=== PATIENT | female | born 1965 | race American Indian/Alaskan Native ===

== ENCOUNTER 2021-08-20 22:25 | Emergency (ER) | payer SELFPAY ==
[2021-08-20] MEDS ORDERED: ALBUTEROL 2.5 MG/3 ML NEBU IH ONE (23:29)
[2021-08-20] MEDS ORDERED: IPRATROPIUM 0.02% NEBU 2.5 ML IH ONE (23:29)
[2021-08-20] MEDS ORDERED: MAGNESIUM SULFATE 2 GM/50 ML BAG IV ONE (23:29)
[2021-08-20] MEDS ORDERED: methylPREDNISolone Sod Succinate 125 MG/2 ML INJ IV ONE (23:30)
--- NOTE | 2021-08-20 23:32 | Emergency Department Report ---
ED Shortness of Breath HPI - General Chief Complaint: Dyspnea/Respdistress Stated Complaint: DORIAN/ASTHMA Time Seen by Provider: 08/20/21 23:06 Source: patient, EMS Mode of arrival: Stretcher Limitations: No Limitations - History of Present Illness Initial Comments: 56-year-old female, history of COPD on 2 L O2, presents to ED with shortness of breath. Patient states she is having dyspnea on exertion and wheezing. Patient states everything began 3 days ago after smoking crack. EMS was called. Patient was given albuterol 5 mg nebulizer treatment and transported to the ED. Patient reports cough, denies fever. Denies receiving a COVID-19 vaccine. Patient currently 91% on her usual 2 L O2 nasal cannula. MD Complaint: shortness of breath -: days(s) (3) Severity: moderate Consistency: intermittent Improves With: rest Worsens With: exertion Known History Of: COPD, asthma Associated Symptoms: cough Treatments Prior to Arrival: bronchodilator - Related Data Home Oxygen Therapy: Yes Home Oxygen Amount: 2 Liters Previous Rx's Medication Instructions Recorded Last Taken Type Albuterol Sulfate [Proventil Hfa] 2 puff IH Q4HR PRN #1 hfa.aer.ad 08/21/21 Unknown Rx Furosemide [Lasix] 20 mg PO QDAY #5 tablet 08/21/21 Unknown Rx predniSONE [Deltasone] 50 mg PO QDAY #5 tab 08/21/21 Unknown Rx Allergies Allergy/AdvReac Type Severity Reaction Status Date / Time No Known Allergies Allergy Verified 08/20/21 22:43 ED Review of Systems ROS: Stated complaint: DORIAN/ASTHMA Other details as noted in HPI Comment: All other systems reviewed and negative Constitutional: denies: chills, fever Respiratory: cough, shortness of breath, wheezing ED Past Medical Hx - Past Medical History Previous Medical History?: Yes Hx Asthma: Yes Hx COPD: Yes Additional medical history: headaches - Surgical History Past Surgical History?: No - Social History Smoking Status: Never Smoker Substance Use Type: None - Medications Home Medications: Home Medications Medication Instructions Recorded Confirmed Last Taken Type Albuterol Sulfate [Proventil Hfa] 2 puff IH Q4HR PRN #1 hfa.aer.ad 08/21/21 Unknown Rx Furosemide [Lasix] 20 mg PO QDAY #5 tablet 08/21/21 Unknown Rx predniSONE [Deltasone] 50 mg PO QDAY #5 tab 08/21/21 Unknown Rx ED Physical Exam - General Limitations: No Limitations General appearance: alert - Head Head exam: Present: atraumatic, normocephalic - Eye Eye exam: Present: normal appearance, EOMI - ENT ENT exam: Present: mucous membranes moist - Neck Neck exam: Present: normal inspection - Respiratory Respiratory exam: Present: wheezes - Cardiovascular Cardiovascular Exam: Present: regular rate, normal rhythm - GI/Abdominal GI/Abdominal exam: Present: soft. Absent: distended, tenderness - Extremities Exam Extremities exam: Present: normal inspection - Neurological Exam Neurological exam: Present: alert, oriented X3 - Psychiatric Psychiatric exam: Present: normal affect, normal mood - Skin Skin exam: Present: warm, dry, intact, normal color ED Course Vital Signs 08/20/21 08/20/21 08/20/21 22:39 22:43 23:15 Temperature 98.2 F Pulse Rate 86 85 Pulse Rate [ Bilateral] Respiratory 18 20 Rate Respiratory Rate [Bilateral ] Blood Pressure Blood Pressure 115/76 120/73 [Left] O2 Sat by Pulse 100 100 100 Oximetry 08/20/21 08/20/21 08/21/21 23:26 23:30 00:00 Temperature Pulse Rate 86 Pulse Rate [ Bilateral] Respiratory 24 Rate Respiratory Rate [Bilateral ] Blood Pressure 119/64 120/73 Blood Pressure [Left] O2 Sat by Pulse 100 100 92 Oximetry 08/21/21 08/21/21 08/21/21 00:18 00:56 01:00 Temperature Pulse Rate 91 H 99 H Pulse Rate [ 84 Bilateral] Respiratory 17 18 Rate Respiratory 20 Rate [Bilateral ] Blood Pressure 120/73 120/73 Blood Pressure [Left] O2 Sat by Pulse 100 93 Oximetry 08/21/21 08/21/21 08/21/21 01:30 02:00 02:30 Temperature Pulse Rate 93 H 93 H Pulse Rate [ Bilateral] Respiratory 19 15 Rate Respiratory Rate [Bilateral ] Blood Pressure 135/82 116/66 116/66 Blood Pressure [Left] O2 Sat by Pulse 100 91 89 Oximetry 08/21/21 08/21/21 08/21/21 03:00 03:30 04:25 Temperature Pulse Rate Pulse Rate [ Bilateral] Respiratory Rate Respiratory Rate [Bilateral ] Blood Pressure 121/79 121/79 138/103 Blood Pressure [Left] O2 Sat by Pulse 97 97 Oximetry 08/21/21 08/21/21 08/21/21 04:36 05:00 05:30 Temperature Pulse Rate Pulse Rate [ Bilateral] Respiratory Rate Respiratory Rate [Bilateral ] Blood Pressure 138/103 110/64 Blood Pressure [Left] O2 Sat by Pulse 94 98 Oximetry 08/21/21 08/21/21 08/21/21 06:00 08:00 10:08 Temperature Pulse Rate 88 90 Pulse Rate [ Bilateral] Respiratory 17 17 Rate Respiratory Rate [Bilateral ] Blood Pressure Blood Pressure [Left] O2 Sat by Pulse 99 97 97 Oximetry 08/21/21 08/21/21 12:25 15:00 Temperature Pulse Rate 95 H 85 Pulse Rate [ Bilateral] Respiratory 18 18 Rate Respiratory Rate [Bilateral ] Blood Pressure Blood Pressure 125/74 [Left] O2 Sat by Pulse 96 99 Oximetry ED Medical Decision Making - Radiology Data Radiology results: report reviewed, image reviewed - Medical Decision Making 56-year-old female with COPD exacerbation likely secondary to smoking crack. Patient given albuterol/Atrovent nebulizer treatment along with IV Solu-Medrol and mag sulfate here in the ED. Patient is doing much better. She is eating at the bedside. Upon discharge she informed that she has run out of oxygen at home. When off of her 2 L of O2 patient does desaturate. Will obtain case management consult for home O2. Critical care attestation.: If time is entered above; I have spent that time in minutes in the direct care of this critically ill patient, excluding procedure time. ED Disposition Clinical Impression: Cocaine abuse, COPD exacerbation Disposition: 01 HOME / SELF CARE / HOMELESS Is pt being admited?: No Condition: Stable Instructions: Chronic Obstructive Pulmonary Disease Exacerbation, [id number], Stimulant Use Disorder-Cocaine, Chronic Obstructive Pulmonary Disease (ED) Prescriptions: predniSONE [Deltasone] 50 mg PO QDAY #5 tab Furosemide [Lasix] 20 mg PO QDAY #5 tablet Albuterol Sulfate [Proventil Hfa] 2 puff IH Q4HR PRN #1 hfa.aer.ad PRN Reason: Wheezing Referrals: PRIMARY CARE, [Primary Care Provider] - 3-5 Days [facility] [Provider Group] - 3-5 Days Time of Disposition: 03:15
--- NOTE | 2021-08-20 23:56 | XRay Report ---
CHEST 1 VIEW 08/20/2021 10:48 PM INDICATION / CLINICAL INFORMATION: sob. COMPARISON: None available. FINDINGS: SUPPORT DEVICES: None. HEART / MEDIASTINUM: No significant abnormality. LUNGS / PLEURA: There is pulmonary vascular indistinctness. No focal consolidation. No pneumothorax. ADDITIONAL FINDINGS: No significant additional findings. IMPRESSION: 1. Mild pulmonary edema. Signer Name: Syd Chavez DO Signed: 08/20/2021 11:51 PM Workstation Name: [id number]
[2021-08-21] MEDS ORDERED: FUROSEMIDE 40 MG/4 ML INJ IV ONE (01:14)
[2021-08-21] MEDS ORDERED: LORazepam 2 MG/ML VIAL IV ONE (04:31)
[2021-08-21] MEDS ORDERED: LORazepam 2 MG/ML VIAL ONE (04:32)
[2021-08-21 15:44] VITALS: BP 125/74
== END 2021-08-21 15:45 | disposition home or self-care (01) ==
LOC: ED 22:25
DX: J44.9 Chronic obstructive pulmonary disease, unspecified (principal); F14.10 Cocaine abuse, uncomplicated; Z98.890 Other specified postprocedural states; Z79.899 Other long term (current) drug therapy
CPT/HCPCS: 71045; 94640; 96365; 96375; 99284; J1940; J2060; J2930; J3475; 94644

== ENCOUNTER 2022-03-28 16:27 | Inpatient (IN) | payer SELFPAY ==
[2022-03-28 18:21] LABS: ABG Base Excess -0.9 mmol/L (-2.0-3.0); ABG HCO3 30.1 mmol/L (20.0-26.0); ABG Methemoglobin 0.5 % (0.0-1.5); ABG Oxygen Saturation 94.9 % (95.0-99.0); ABG PCO2 86.8 mm Hg; ABG PO2 88.8 mm Hg (80.0-90.0)
[2022-03-28 18:25] LABS: ABG PH 7.158 pH Units (7.350-7.450)
[2022-03-28] MEDS ORDERED: IPRATROPIUM/ALBUTEROL SULFATE 3 ML AMPUL.NEB IH STA (19:04)
[2022-03-28] MEDS ORDERED: BUDESONIDE 0.25 MG/2 ML NEBU IH ONE (19:05)
[2022-03-28 19:40] LABS: Mean Corpuscular HGB Conc 30 % (30-34); Mean Corpuscular Volume 90 fl (79-97); Platelet Count 238 K/mm3 (140-440); Red Blood Count 4.88 M/mm3 (3.65-5.03)
[2022-03-28 19:42] LABS: Hematocrit 44.2 % (30.3-42.9); Hemoglobin 13.2 gm/dl (10.1-14.3); Red Cell Distribution Width 21.3 % (13.2-15.2)
--- NOTE | 2022-03-28 19:50 | XRay Report ---
CHEST 1 VIEW 03/28/2022 6:36 PM INDICATION / CLINICAL INFORMATION: sob, copd. COMPARISON: 08/20/2021 FINDINGS: SUPPORT DEVICES: None. HEART / MEDIASTINUM: Stable cardiomegaly. Mild prominence of the right hilum remains. LUNGS / PLEURA: No left-sided infiltrate. Slightly more localized opacity right base. No pneumothorax . ADDITIONAL FINDINGS: No significant additional findings. IMPRESSION: 1. Atelectasis versus developing infiltrate right base. 2. Left lung clear. Signer Name: Dar Kimball MD Signed: 03/28/2022 7:45 PM Workstation Name: [id number]
[2022-03-28 19:51] LABS: Alanine Aminotransferase 29 units/L (7-56); Albumin 4.1 g/dL (3.9-5); Blood Urea Nitrogen 9 mg/dL (7-17); Calcium 9.2 mg/dL (8.4-10.2); Hemolysis Index 30
[2022-03-28 19:52] LABS: BUN/Creatinine Ratio 15
[2022-03-28] MEDS ORDERED: BUDESONIDE 0.5 MG/2 ML NEBU IH ONE (20:10)
[2022-03-28 21:22] LABS: Anisocytosis 1+; Basophils % (Manual) 0 % (0.0-1.8); Eosinophils % (Manual) 0 % (0.0-4.3); Total Cells Counted 100
[2022-03-28 21:23] LABS: Platelet Estimate Consistent w Auto; Tear Drop Cells Rare
[2022-03-28] MEDS ORDERED: cefTRIAXone/NS 1 GM/50 ML 1 GM/50 ML BAG IV ONE (21:41)
--- NOTE | 2022-03-28 22:24 | Emergency Department Report ---
ED Shortness of Breath HPI - General Chief Complaint: Dyspnea/Respdistress Stated Complaint: DORIAN Source: patient, EMS Mode of arrival: Stretcher Limitations: Other - History of Present Illness Initial Comments: 56-year-old female with a history of asthma, COPD, current chronic tobacco abuse at 1 pack/day of cigarette smoking, cocaine abuse, alcohol abuse (patient states last time she smoked crack cocaine was today and last time she drank alcohol was 2 shots of alcohol earlier today" brought in by EMS for hypoxemia and shortness of breath. See patient's electronic health record concerning the nurses documented discussion with EMS concerning the medications administered to the patient prior to arrival. Patient denies any complaints at this time but does states she has been "just feeling badly with this cough and asthma attack over the past few days." Pain 0 out of 10. MD Complaint: shortness of breath, cough, "asthma attack" -: Gradual, days(s) (4) Radiation: other (no radiation ) Severity: moderate Pain Scale: 0 Quality: other (pt denies pain ) Consistency: other (pt denies pain) Improves With: oxygen Worsens With: nothing Known History Of: COPD, asthma Context: recent URI Associated Symptoms: denies other symptoms Treatments Prior to Arrival: oxygen, bronchodilator - Related Data Home Oxygen Therapy: No Previous Rx's Medication Instructions Recorded Last Taken Type Albuterol Sulfate [Proventil Hfa] 2 puff IH Q4HR PRN #1 hfa.aer.ad 08/21/21 Unknown Rx Furosemide [Lasix] 20 mg PO QDAY #5 tablet 08/21/21 Unknown Rx predniSONE [Deltasone] 50 mg PO QDAY #5 tab 08/21/21 Unknown Rx Allergies Allergy/AdvReac Type Severity Reaction Status Date / Time No Known Allergies Allergy Verified 08/20/21 22:43 ED Review of Systems ROS: Stated complaint: DORIAN Other details as noted in HPI Comment: All other systems reviewed and negative Constitutional: no symptoms reported Eyes: as per HPI ENT: as per HPI Respiratory: cough, shortness of breath, wheezing Cardiovascular: as per HPI. denies: chest pain, palpitations, dyspnea on ex ertion, orthopnea, edema, syncope, paroxysmal nocturnal dyspnea Endocrine: no symptoms reported Gastrointestinal: as per HPI. denies: abdominal pain, nausea, vomiting, diarrhea, constipation, hematemesis, melena, hematochezia Genitourinary: denies: as per HPI, urgency, dysuria, frequency, hematuria, discharge, abnormal menses Musculoskeletal: as per HPI. denies: back pain, joint swelling, arthralgia, myalgia Skin: denies: as per HPI, rash, lesions, change in color, change in hair/nails, pruritus Neurological: denies: as per HPI, headache, weakness, numbness, paresthesias, confusion Psychiatric: anxiety. denies: as per HPI, depression, auditory hallucinations, visual hallucinations, homicidal thoughts, suicidal thoughts Hematological/Lymphatic: denies: as per HPI ED Past Medical Hx - Past Medical History Previous Medical History?: Yes Hx Hypertension: No Hx CVA: No Hx Heart Attack/AMI: No Hx Congestive Heart Failure: No Hx Diabetes: No Hx Deep Vein Thrombosis: No Hx Pulmonary Embolism: No Hx GERD: No Hx Renal Disease: No Hx of Cancer: No Hx Sickle Cell Disease: No Hx Arthritis: No Hx Headaches / Migraines: No Hx Seizures: No Hx Kidney Stones: No Hx Psychiatric Treatment: No Hx Asthma: Yes Hx COPD: Yes Hx Tuberculosis: No Hx Dementia: No Hx HIV: No Additional medical history: headaches - Social History Smoking Status: Current Every Day Smoker Substance Use Type: None - Medications Home Medications: Home Medications Medication Instructions Recorded Confirmed Last Taken Type Albuterol Sulfate [Proventil Hfa] 2 puff IH Q4HR PRN #1 hfa.aer.ad 08/21/21 Unknown Rx Furosemide [Lasix] 20 mg PO QDAY #5 tablet 08/21/21 Unknown Rx predniSONE [Deltasone] 50 mg PO QDAY #5 tab 08/21/21 Unknown Rx ED Physical Exam - General Limitations: Other General appearance: lethargic, other (audlt female, disheveled, dry oral mucous membranes, asleep but easily arousable) - Head Head exam: Present: atraumatic, normocephalic, normal inspection - Eye Eye exam: Present: normal appearance, PERRL, EOMI. Absent: scleral icterus, conjunctival injection, nystagmus, periorbital swelling, periorbital tenderness - ENT ENT exam: Present: normal exam, mucous membranes dry, TM's normal bilaterally. Absent: mucous membranes moist, normal external ear exam, other - Neck Neck exam: Present: normal inspection. Absent: tenderness, meningismus, full ROM, lymphadenopathy, thyromegaly - Respiratory Respiratory exam: Present: respiratory distress, wheezes, rales, rhonchi, p rolonged expiratory. Absent: stridor, chest wall tenderness, accessory muscle use, decreased breath sounds - Cardiovascular Cardiovascular Exam: Present: regular rate, normal rhythm, normal heart sounds. Absent: bradycardia, tachycardia, irregular rhythm, systolic murmur, diastolic murmur, rubs, gallop, clicks, JVD, S3, S4 - GI/Abdominal GI/Abdominal exam: Present: soft, normal bowel sounds. Absent: distended, tende rness, guarding, rebound, rigid, diminished bowel sounds, hyperactive bowel sounds, hypoactive bowel sounds, organomegaly, mass, bruit, pulsatile mass, hernia - Rectal Rectal exam: Present: deferred - Extremities Exam Extremities exam: Present: normal inspection, full ROM, normal capillary refill. Absent: tenderness, pedal edema, joint swelling, calf tenderness - Back Exam Back exam: Present: normal inspection, full ROM. Absent: tenderness, CVA tenderness (R), CVA tenderness (L), muscle spasm, paraspinal tenderness, vertebral tenderness - Neurological Exam Neurological exam: Present: alert, oriented X3, other (unable to test gait seco ndary to mental status ) - Psychiatric Psychiatric exam: Present: other (intermittently writhing on stretcher, stating "i'm coming down from the crack! down from the crack!") - Skin Skin exam: Present: warm, dry, normal color. Absent: rash, cyanosis, diaphoretic, erythema, urticaria, vesicles, petechiae, pallor, abrasion ED Course Vital Signs 03/28/22 03/28/22 03/28/22 16:40 17:00 17:38 Temperature Pulse Rate 100 H Pulse Rate [ Anterior Bilateral Throughout] Respiratory 36 H 15 Rate Respiratory Rate [Anterior Bilateral Throughout] Blood Pressure Blood Pressure [Left] O2 Sat by Pulse 99 98 Oximetry 03/28/22 03/28/22 03/28/22 17:46 18:00 18:16 Temperature Pulse Rate 101 H 98 H 97 H Pulse Rate [ Anterior Bilateral Throughout] Respiratory 13 17 16 Rate Respiratory Rate [Anterior Bilateral Throughout] Blood Pressure 148/83 Blood Pressure [Left] O2 Sat by Pulse 94 99 98 Oximetry 03/28/22 03/28/2222 18:30 18:46 19:50 Temperature 98.3 F Pulse Rate 94 H 92 H 99 H Pulse Rate [ Anterior Bilateral Throughout] Respiratory 18 16 15 Rate Respiratory Rate [Anterior Bilateral Throughout] Blood Pressure 147/87 142/86 Blood Pressure 155/92 [Left] O2 Sat by Pulse 99 97 92 Oximetry 03/28/22 19:58 Temperature Pulse Rate Pulse Rate [ 87 Anterior Bilateral Throughout] Respiratory Rate Respiratory 14 Rate [Anterior Bilateral Throughout] Blood Pressure Blood Pressure [Left] O2 Sat by Pulse Oximetry - Reevaluation(s) Reevaluation #1: 03/28/22 19:29: pt asleep, arousable with sternal rub; mentation normal when pt awoken; pt is requesting food; plan will be to admit ED Medical Decision Making - Lab Data Result diagrams: 03/28/22 19:18 03/28/22 19:18 - EKG Data -: EKG Interpreted by Co EKG shows normal: sinus rhythm Rate: normal - EKG Data When compared to previous EKG there are: no significant change Interpretation: no acute changes, normal EKG - Radiology Data Radiology results: report reviewed reviewed - Medical Decision Making 56-year-old female with multiple medical comorbidities brought in by EMS for hypoxia and respiratory distress. Patient was immediately placed on BiPAP upon arrival due to severe respiratory distress. Her vitals remained stable thereafter. Given that she was already provided multiple medications by EMS prior to arrival, she was given here albuterol DuoNeb. Serum labs reviewed as well as diagnostic imaging. Patient given ceftriaxone and azithromycin based on her reports of cough, documented elevated wbc, and ?developing RLL infiltrate.. Urine drug screen remains pending. Patient accepted for admission by Dr. Ingram for further management. Critical care attestation.: If time is entered above; I have spent that time in minutes in the direct care of this critically ill patient, excluding procedure time. ED Disposition Clinical Impression: Hypoxia Community acquired pneumonia Qualifiers: Laterality: right Lung location: lower lobe of lung Qualified Code(s): J18.9 - Pneumonia, unspecified organism Disposition: 09 ADMITTED INPATIENT Is pt being admited?: Yes Does the pt Need Aspirin: No Condition: Stable Instructions: Bacterial Pneumonia (ED) Referrals: ARRON TUBBS MD [Primary Care Provider] - 3-5 Days
[2022-03-28] MEDS ORDERED: MORPHINE 2 MG/1 ML INJ IV PRN (23:17)
[2022-03-28] MEDS ORDERED: ONDANSETRON 4 MG/2 ML INJ IV PRN (23:17)
[2022-03-28] MEDS ORDERED: LORazepam 2 MG/ML VIAL IV PRN ×2 (23:17)
[2022-03-28] MEDS ORDERED: MORPHINE 4 MG/1 ML INJ IV PRN (23:17)
[2022-03-28] MEDS ORDERED: ACETAMINOPHEN 325 MG TAB PO PRN (23:17)
[2022-03-28] MEDS ORDERED: MAGNESIUM HYDROXIDE (MOM) ORAL LIQD UDC PO PRN (23:17)
[2022-03-28] MEDS ORDERED: SODIUM CHLORIDE 0.9% 1000 ML 1,000 ML IV SCH (23:30)
--- NOTE | 2022-03-28 23:31 | History and Physical Report ---
History of Present Illness Date of examination: 03/28/22 Date of admission: 03/28/2022 Chief complaint: Shortness of Breath History of present illness: 56-year-old female with known history of COPD chronic tobacco abuse cocaine abuse ,alcohol use brought into the emergency room by EMS today for evaluation of shortness of breath and hypoxia. Patient states that she smoked crack cocaine and also drank 2 shots of alcohol earlier in the day. She denies any major complaints upon arrival in the emergency room. However upon arrival she was found to be hypoxic, wheezing and appeared lethargic. She was subsequently placed on the BiPAP. Work-up in the emergency room today, chest x-ray of reveals atelectasis versus developing infiltrate in the right lung base. Lab reveals leukocytosis of 12.4 ABG shows a pH of 7.158, PCO2 of 86.8. Patient has been commenced on empiric IV antibiotics, IV fluid and also placed on the CIWA protocol. Past History Past Medical History: COPD, hypertension, other (Headache) Social history: smoking (Current daily smoker,Cocaine and alcohol abuse) Family history: no significant family history Medications and Allergies Allergies Allergy/AdvReac Type Severity Reaction Status Date / Time No Known Allergies Allergy Verified 08/20/21 22:43 Home Medications Medication Instructions Recorded Confirmed Last Taken Type Albuterol Sulfate [Proventil Hfa] 2 puff IH Q4HR PRN #1 hfa.aer.ad 08/21/21 Unknown Rx Furosemide [Lasix] 20 mg PO QDAY #5 tablet 08/21/21 Unknown Rx predniSONE [Deltasone] 50 mg PO QDAY #5 tab 08/21/21 Unknown Rx Active Meds: Active Medications Acetaminophen (Acetaminophen 325 Mg Tab) 650 mg PO Q6H PRN PRN Reason: Pain MILD(1-3)/Fever >100.5/BAÑUELOS Albuterol/Ipratropium (Ipratropium/Albuterol Sulfate 3 Ml Ampul.Neb) 1 ampul IH Q6HRT JAMES Sodium Chloride (Nacl 0.9% 1000 Ml) 1,000 mls @ 125 mls/hr IV DIRECT JAMES Ceftriaxone Sodium (Rocephin/Ns 2 Gm/100 Ml) 2 gm in 100 mls @ 200 mls/hr IV Q24H JAMES; Protocol Azithromycin (Zithromax/Ns) 500 mg in 250 mls @ 250 mls/hr IV Q24H JAMES; Protocol Lorazepam (Lorazepam 2 Mg/Ml Vial) 2 mg IV Q1H PRN PRN Reason: CIWA-Ar 8-15 Lorazepam (Lorazepam 2 Mg/Ml Vial) 4 mg IV Q1H PRN PRN Reason: CIWA-Ar 16-25 Lorazepam (Lorazepam 2 Mg/Ml Vial) 4 mg IV Q15MIN PRN PRN Reason: CIWA-Ar >25 Magnesium Hydroxide (Magnesium Hydroxide (Mom) Oral Liqd Udc) 30 ml PO Q4H PRN PRN Reason: Constipation Methylprednisolone Sodium Succinate (Methylprednisolone Sod Succinate 40 Mg/1 Ml Inj) 40 mg IV Q8HR JAMES Morphine Sulfate (Morphine 2 Mg/1 Ml Inj) 2 mg IV Q4H PRN PRN Reason: Pain, Moderate (4-6) Morphine Sulfate (Morphine 4 Mg/1 Ml Inj) 4 mg IV Q4H PRN PRN Reason: Pain , Severe (7-10) Ondansetron HCl (Ondansetron 4 Mg/2 Ml Inj) 4 mg IV Q8H PRN PRN Reason: Nausea And Vomiting Sodium Chloride (Sodium Chloride 0.9% 10 Ml Flush Syringe) 10 ml IV BID JAMES Sodium Chloride (Sodium Chloride 0.9% 10 Ml Flush Syringe) 10 ml IV PRN PRN PRN Reason: LINE FLUSH Review of Systems Constitutional: no fever, no chills Ears, nose, mouth and throat: no nasal congestion, no sore throat Cardiovascular: no chest pain, no palpitations Respiratory: shortness of breath, no cough Gastrointestinal: no abdominal pain, no nausea, no vomiting, no diarrhea Genitourinary Female: no pelvic pain, no flank pain, no dysuria Musculoskeletal: no neck pain, no low back pain Integumentary: no rash, no pruritis Neurological: no headaches, no confusion Psychiatric: no anxiety, no depression Endocrine: no polyphagia, no polydipsia, no polyuria Exam - Constitutional Vitals: Temp Pulse Resp BP Pulse Ox 98.3 F 99 H 15 122/71 95 03/28/22 19:50 03/28/22 22:34 03/28/22 22:34 03/28/22 22:34 03/28/22 22:34 General appearance: Present: no acute distress, well-nourished - EENT Eyes: Present: PERRL, EOM intact. Absent: scleral icterus ENT: hearing intact, clear oral mucosa, dentition normal - Neck Neck: Present: supple, normal ROM - Respiratory Respiratory effort: normal Respiratory: bilateral: wheezing - Cardiovascular Rhythm: regular Heart Sounds: Present: S1 & S2. Absent: gallop, systolic murmur, diastolic murmur, rub, click - Extremities Extremities: no ischemia, pulses intact, pulses symmetrical, No edema, normal temperature, normal color, Full ROM Peripheral Pulses: within normal limits - Abdominal General gastrointestinal: Present: soft, non-tender, non-distended, normal bowel sounds. Absent: mass - Integumentary Integumentary: Present: clear, warm, dry, normal turgor. Absent: rash - Musculoskeletal Musculoskeletal: strength equal bilaterally - Psychiatric Psychiatric: cooperative - Neurologic Neurologic: CNII-XII intact, no focal deficits, moves all extremities, other (Lethargic) Results - Labs CBC & Chem 7: 03/28/22 19:18 03/29/22 04:53 Labs: Abnormal lab results 03/28/22 03/28/22 03/28/22 Range/Units 17:55 19:18 19:18 WBC 12.4 H (4.5-11.0) K/mm3 Hct 44.2 H (30.3-42.9) % MCH 27 L (28-32) pg RDW 21.3 H (13.2-15.2) % Seg Neuts % (Manual) 93.0 H (40.0-70.0) % Lymphocytes % (Manual) 6.0 L (13.4-35.0) % Seg Neutrophils # Man 11.5 H (1.8-7.7) K/mm3 Lymphocytes # (Manual) 0.7 L (1.2-5.4) K/mm3 ABG pH 7.158 L* (7.350-7.450) pH Units ABG HCO3 30.1 H (20.0-26.0) mmol/L ABG O2 Saturation 94.9 L (95.0-99.0) % Oxyhemoglobin 90.6 L (95.0-99.0) % Glucose 148 H (65-100) mg/dL Salicylates (2.8-20.0) mg/dL Acetaminophen (10.0-30.0) ug/mL 03/28/22 03/28/22 Range/Units 19:18 19:18 WBC (4.5-11.0) K/mm3 Hct (30.3-42.9) % MCH (28-32) pg RDW (13.2-15.2) % Seg Neuts % (Manual) (40.0-70.0) % Lymphocytes % (Manual) (13.4-35.0) % Seg Neutrophils # Man (1.8-7.7) K/mm3 Lymphocytes # (Manual) (1.2-5.4) K/mm3 ABG pH (7.350-7.450) pH Units ABG HCO3 (20.0-26.0) mmol/L ABG O2 Saturation (95.0-99.0) % Oxyhemoglobin (95.0-99.0) % Glucose (65-100) mg/dL Salicylates < 0.3 L (2.8-20.0) mg/dL Acetaminophen 5.0 L (10.0-30.0) ug/mL Assessment and Plan - Patient Problems (1) Community acquired pneumonia Current Visit: Yes Status: Acute Qualifiers: Laterality: right Lung location: lower lobe of lung Qualified Code(s): J18.9 - Pneumonia, unspecified organism Plan to address problem: Patient placed on empiric IV antibiotics. Will await culture results. (2) COPD (chronic obstructive pulmonary disease) Current Visit: Yes Status: Acute Plan to address problem: Patient placed on nebulizing treatments. We will keep O2 saturation greater or equal to 94%. Consult placed to pulmonology for evaluation and further recommendations. (3) Hypoxia Current Visit: Yes Status: Acute Plan to address problem: Possibly secondary emergency room COPD suspicion versus underlying pneumonia. Will keep O2 saturation greater equal to 94%. (4) DVT prophylaxis Current Visit: Yes Status: Acute Plan to address problem: Patient placed on subcutaneous heparin. (5) Full code status Current Visit: Yes Status: Acute Plan to address problem: Patient is full code.
[2022-03-28] MEDS: AZITHROMYCIN/NS 500 MG/250 ML 500 MG/250 ML BAG IV SCH (23:48)
[2022-03-29] MEDS: LORazepam 2 MG/ML VIAL IV PRN ×3 (00:29→21:20)
[2022-03-29] MEDS: IPRATROPIUM/ALBUTEROL SULFATE 3 ML AMPUL.NEB IH SCH ×4 (03:00→20:30)
[2022-03-29 05:29] LABS: Blood Urea Nitrogen 7 mg/dL (7-17); Calcium 9.3 mg/dL (8.4-10.2); Hemolysis Index 5
[2022-03-29 05:35] LABS: BUN/Creatinine Ratio 14
[2022-03-29] MEDS: methylPREDNISolone Sod Succinate 40 MG/1 ML INJ IV SCH ×3 (06:15→22:32)
[2022-03-29 08:55] LABS: ABG Base Excess 2.1 mmol/L (-2.0-3.0); ABG Methemoglobin 0.4 % (0.0-1.5); ABG PCO2 63.6 mm Hg; ABG PH 7.292 pH Units (7.350-7.450); ABG PO2 61.4 mm Hg (80.0-90.0)
[2022-03-29] MEDS ORDERED: ZIPRASIDONE MESYLATE 20 MG VIAL IM SCH (09:30)
[2022-03-29] MEDS ORDERED: ZIPRASIDONE MESYLATE 20 MG VIAL IM NR (09:30)
[2022-03-29] MEDS: ENOXAPARIN 40 MG/0.4 ML INJ SUB-Q SCH (09:57)
[2022-03-29] MEDS: cefTRIAXone/NS 2 GM/100 ML 2 GM/100 ML BAG IV SCH (09:58)
[2022-03-29] MEDS: FAMOTIDINE 20 MG/2 ML INJ IV SCH (10:00)
[2022-03-29] MEDS ORDERED: WATER FOR INJ Sterile (PF) 10 ML IV ONE (10:00)
[2022-03-29] MEDS ORDERED: FAMOTIDINE 20 MG TAB PO SCH (10:00)
--- NOTE | 2022-03-29 11:17 | Event Note ---
Date: 03/29/22 Cocaine abuse along with continued tobacco abuse will both have deleterious effects on this patient's lungs. At this point, the best advice I can offer is to stop both of these offending agents and sick help for her drug addiction. No meds will help if she continues to smoke and do drugs.
--- NOTE | 2022-03-29 12:02 | Progress Note ---
<FARIBA CELAYA - Last Filed: 03/29/22 18:31> Assessment and Plan Assessment and plan: This is a 56-year-old female with known history of COPD, HTN, chronic Tobacco, cocaine, and alcohol abuse admitted for acute hypoxic and hypercapneic respiratory failure Hospital Course to Date: 03/29: Agitated and combative this am required four point restraints and IV ativan per [facility] protocol. Continue [facility] protocol and mental health consulted for further recommendations. Patient is off Bipap, now stable on 4L NC. This am ABG noted. Continue IV steroids and bronchodilators, wean O2 supplementation as tolerated for SPO2 goal above 90%. Pulmonary also on consult. Assessment and Plan #Acute Hypoxic and Hypercapnic Respiratory Failure 12/08 #COPD (Chronic Obstructive Pulmonary Disease) #Community Acquired Pneumonia(CAP) #Tobacco Dependence - Presented with respiratory acidosis, hypercapnea and hypoxia requiring continuous Bipap - Chest x-ray of reveals atelectasis versus developing infiltrate in the right lung base - Off Bipap this am, stable on 4L NC SPO2 above 95% - Repeat ABG noted with some improvement in acidosis - Continue PRN Bronchodilator and IV steroids - Continue empiric IV Abx - Continue O2 supplementation and wean as tolerated - Continue SPO2 monitoring for SPO2 goal above 90% - Pulmonary is also following - Smoking Cessation education and resources when coherent and mentally appropriate #Acute Enccephalopathy #Polysubstances Abuse - most likely due to cocaine and alcohol abuse - Per patient she smoked crack cocaine and also drank 2 shots of alcohol earlier on day of admit - UDS pending - Episodes of agitation/combative this am, s/p IV ativan per [facility] - Continue [facility] protocol - Frequent reorientation - Fall precautions - Mental Health consulted #Community Acquired Pneumonia(CAP) #Leukocytosis - Chest x-ray of reveals atelectasis versus developing infiltrate in the right lung base - Now stable on 4L NC - UA/urine and blood cultures pending - Patient remains afebrile and normotensive, with mild leukocytosis - Will check procal and CRP - Continue empiric IV Abx- Rocephin and Azithro for now - Continue to F/U on cultures - Daily CBC monitor - Consider ID consult if febrile or/and if leukocytosis persist #Hypertension - BP is stable - Continue blood pressure monitor per protocol - Maintain MAP above 65 and SBP less than 160 - Resume home meds once list is available #GI/DVT Prophylaxis - PPI- Pepcid - Lovenox SubQ - SCDs to bilateral lower extremities while in bed The high probability of a clinically significant, sudden or life threatening deterioration of the [multiple] system(s) required my full and direct attention, intervention and personal management. The aggregate critical care time was [40] minutes. This time is in addition to time spent performing reported procedures but includes the following: [x] Data Review and interpretation [x] Patient assessment and monitoring of vital signs [x] Documentation [x] Medication orders and management Disposition Plan: IMCU Total Time Spent with Patient (Minutes): 40 History Interval history: Patient seen and examined at the bedside. Very lethargic, only arousable to sternal stimuli. Per RN episode of agitation/combative this am requiring 4points retraints and IV Ativan per [facility] protocol. Off Bipap, now stable on 4L NC SPO2 above 95%. Hospitalist Physical - Constitutional Vitals: Temp Pulse Resp BP Pulse Ox 96.8 F L 78 20 124/81 100 03/29/22 08:00 03/29/22 11:00 03/29/22 11:00 03/29/22 11:00 03/29/22 11:09 General appearance: Present: no acute distress, cachectic - EENT Eyes: Present: PERRL - Respiratory Respiratory effort: normal Respiratory: bilateral: wheezing - Cardiovascular Rhythm: regular Heart Sounds: Present: S1 & S2 - Extremities Extremities: no ischemia, pulses intact, pulses symmetrical Peripheral Pulses: within normal limits - Abdominal General gastrointestinal: soft, non-distended, normal bowel sounds - Integumentary Integumentary: Present: clear, warm, dry - Psychiatric Psychiatric: other (Lethargic, only arousable to deep sternal stimuli) - Neurologic Neurologic: moves all extremities, other (Lethargic, only arousable to deep sternal stimuli) - Allied Health Allied health notes reviewed: nursing Results - Labs CBC & Chem 7: 03/28/22 19:18 03/29/22 04:53 Labs: Laboratory Last Values WBC 12.4 K/mm3 (4.5-11.0) H 03/28/22 19:18 RBC 4.88 M/mm3 (3.65-5.03) 03/28/22 19:18 Hgb 13.2 gm/dl (10.1-14.3) 03/28/22 19:18 Hct 44.2 % (30.3-42.9) H 03/28/22 19:18 MCV 90 fl (79-97) 03/28/22 19:18 MCH 27 pg (28-32) L 03/28/22 19:18 MCHC 30 % (30-34) 03/28/22 19:18 RDW 21.3 % (13.2-15.2) H 03/28/22 19:18 Plt Count 238 K/mm3 (140-440) 03/28/22 19:18 Add Manual Diff Complete 03/28/22 19:18 Total Counted 100 03/28/22 19:18 Seg Neutrophils % Business Analyst [employer] 03/28/22 19:18 Seg Neuts % (Manual) 93.0 % (40.0-70.0) H 03/28/22 19:18 Band Neutrophils % 0 % 03/28/22 19:18 Lymphocytes % (Manual) 6.0 % (13.4-35.0) L 03/28/22 19:18 Reactive Lymphs % (Man) 0 % 03/28/22 19:18 Monocytes % (Manual) 1.0 % (0.0-7.3) 03/28/22 19:18 Eosinophils % (Manual) 0 % (0.0-4.3) 03/28/22 19:18 Basophils % (Manual) 0 % (0.0-1.8) 03/28/22 19:18 Metamyelocytes % 0 % 03/28/22 19:18 Myelocytes % 0 % 03/28/22 19:18 Promyelocytes % 0 % 03/28/22 19:18 Blast Cells % 0 % 03/28/22 19:18 Nucleated RBC % Not Reportable 03/28/22 19:18 Seg Neutrophils # Man 11.5 K/mm3 (1.8-7.7) H 03/28/22 19:18 Band Neutrophils # 0.0 K/mm3 03/28/22 19:18 Lymphocytes # (Manual) 0.7 K/mm3 (1.2-5.4) L 03/28/22 19:18 Abs React Lymphs (Man) 0.0 K/mm3 03/28/22 19:18 Monocytes # (Manual) 0.1 K/mm3 (0.0-0.8) 03/28/22 19:18 Eosinophils # (Manual) 0.0 K/mm3 (0.0-0.4) 03/28/22 19:18 Basophils # (Manual) 0.0 K/mm3 (0.0-0.1) 03/28/22 19:18 Metamyelocytes # 0.0 K/mm3 03/28/22 19:18 Myelocytes # 0.0 K/mm3 03/28/22 19:18 Promyelocytes # 0.0 K/mm3 03/28/22 19:18 Blast Cells # 0.0 K/mm3 03/28/22 19:18 WBC Morphology Not Reportable 03/28/22 19:18 Hypersegmented Neuts Not Reportable 03/28/22 19:18 Hyposegmented Neuts Not Reportable 03/28/22 19:18 Hypogranular Neuts Not Reportable 03/28/22 19:18 Smudge Cells Not Reportable 03/28/22 19:18 Toxic Granulation Not Reportable 03/28/22 19:18 Toxic Vacuolation Not Reportable 03/28/22 19:18 Dohle Bodies Not Reportable 03/28/22 19:18 Pelger-Huet Anomaly Not Reportable 03/28/22 19:18 Davian Rods Not Reportable 03/28/22 19:18 Platelet Estimate Consistent w auto 03/28/22 19:18 Clumped Platelets Not Reportable 03/28/22 19:18 Plt Clumps, EDTA Not Reportable 03/28/22 19:18 Large Platelets Not Reportable 03/28/22 19:18 Giant Platelets Not Reportable 03/28/22 19:18 Platelet Satelliting Not Reportable 03/28/22 19:18 Plt Morphology Comment Not Reportable 03/28/22 19:18 RBC Morphology Not Reportable 03/28/22 19:18 Dimorphic RBCs Not Reportable 03/28/22 19:18 Polychromasia Not Reportable 03/28/22 19:18 Hypochromasia Not Reportable 03/28/22 19:18 Poikilocytosis Not Reportable 03/28/22 19:18 Anisocytosis 1+ 03/28/22 19:18 Microcytosis Not Reportable 03/28/22 19:18 Macrocytosis Not Reportable 03/28/22 19:18 Spherocytes Not Reportable 03/28/22 19:18 Pappenheimer Bodies Not Reportable 03/28/22 19:18 Sickle Cells Not Reportable 03/28/22 19:18 Target Cells Not Reportable 03/28/22 19:18 Tear Drop Cells Rare 03/28/22 19:18 Ovalocytes Not Reportable 03/28/22 19:18 Helmet Cells Not Reportable 03/28/22 19:18 [place] Bodies Not Reportable 03/28/22 19:18 Dietrich Rings Not Reportable 03/28/22 19:18 [place] Cells Not Reportable 03/28/22 19:18 Bite Cells Not Reportable 03/28/22 19:18 Crenated Cell Not Reportable 03/28/22 19:18 Elliptocytes Not Reportable 03/28/22 19:18 Acanthocytes (Spur) Not Reportable 03/28/22 19:18 Rouleaux Not Reportable 03/28/22 19:18 Hemoglobin C Crystals Not Reportable 03/28/22 19:18 Schistocytes Not Reportable 03/28/22 19:18 Malaria parasites Not Reportable 03/28/22 19:18 Jer Bodies Not Reportable 03/28/22 19:18 Hem Pathologist Commnt No 03/28/22 19:18 ABG pH 7.292 pH Units (7.350-7.450) L 03/29/22 08:51 ABG pCO2 63.6 mm Hg 03/29/22 08:51 ABG pO2 61.4 mm Hg (80.0-90.0) L 03/29/22 08:51 ABG HCO3 30.0 mmol/L (20.0-26.0) H 03/29/22 08:51 ABG O2 Saturation 92.0 % (95.0-99.0) L 03/29/22 08:51 ABG O2 Content 15.4 (0.0-44) 03/29/22 08:51 ABG Base Excess 2.1 mmol/L (-2.0-3.0) 03/29/22 08:51 ABG Hemoglobin 12.2 gm/dl (12.0-16.0) 03/29/22 08:51 ABG Carboxyhemoglobin 2.2 % (0.0-5.0) 03/29/22 08:51 ABG Methemoglobin 0.4 % (0.0-1.5) 03/29/22 08:51 Oxyhemoglobin 89.6 % (95.0-99.0) L 03/29/22 08:51 FiO2 28 % 03/29/22 08:51 Sodium 142 mmol/L (137-145) 03/29/22 04:53 Potassium 4.2 mmol/L (3.6-5.0) 03/29/22 04:53 Chloride 105.7 mmol/L (98-107) 03/29/22 04:53 Carbon Dioxide 27 mmol/L (22-30) 03/29/22 04:53 Anion Gap 14 mmol/L 03/29/22 04:53 BUN 7 mg/dL (7-17) 03/29/22 04:53 Creatinine 0.5 mg/dL (0.6-1.2) L 03/29/22 04:53 Estimated GFR > 60 ml/min 03/29/22 04:53 BUN/Creatinine Ratio 14 % 03/29/22 04:53 Glucose 123 mg/dL (65-100) H 03/29/22 04:53 Calcium 9.3 mg/dL (8.4-10.2) 03/29/22 04:53 Total Bilirubin 0.30 mg/dL (0.1-1.2) 03/28/22 19:18 AST 36 units/L (5-40) 03/28/22 19:18 ALT 29 units/L (7-56) 03/28/22 19:18 Alkaline Phosphatase 85 units/L (35-129) 03/28/22 19:18 NT-Pro-B Natriuret Pep 556.4 pg/mL (0-900) 03/28/22 19:18 Total Protein 6.9 g/dL (6.3-8.2) 03/28/22 19:18 Albumin 4.1 g/dL (3.9-5) 03/28/22 19:18 Albumin/Globulin Ratio 1.5 % 03/28/22 19:18 Salicylates < 0.3 mg/dL (2.8-20.0) L 03/28/22 19:18 Acetaminophen 5.0 ug/mL (10.0-30.0) L 03/28/22 19:18 Plasma/Serum Alcohol < 0.01 % (0-0.07) 03/28/22 19:18 Microbiology: Microbiology 03/28/22 23:19 Peripheral/Venous Blood Culture - Preliminary Culture in Progress 03/28/22 22:35 Peripheral/Venous Blood Culture - Preliminary Culture in Progress Landa/IV: Voiding Method External Female Catheter Active Medications - Current Medications Current Medications: Generic Name Dose Route Start Last Admin Trade Name Freq PRN Reason Stop Dose Admin Acetaminophen 650 mg 03/28/22 23:17 Acetaminophen 325 Mg Tab PO Q6H PRN Pain MILD(1-3)/Fever >100.5/BAÑUELOS Albuterol/Ipratropium 1 ampul 03/29/22 02:00 03/29/22 09:28 Ipratropium/Albuterol Sulfate 3 Ml Ampul.Neb IH 1 ampul Q6HRT JAMES Administration Enoxaparin Sodium 40 mg 03/29/22 10:00 03/29/22 09:57 Enoxaparin 40 Mg/0.4 Ml Inj SUB-Q 40 mg QDAY@1000 JAMES Administration Protocol Famotidine 20 mg 03/29/22 10:00 03/29/22 10:00 Famotidine 20 Mg/2 Ml Inj IV 20 mg DAILY JAMES Administration Sodium Chloride 1,000 mls @ 125 mls/hr 03/28/22 23:30 Nacl 0.9% 1000 Ml IV DIRECT JAMES Ceftriaxone Sodium 2 gm in 100 mls @ 200 mls/hr 03/29/22 10:00 03/29/22 09:58 Rocephin/Ns 2 Gm/100 Ml IV 200 mls/hr Q24H JAMES Administration Protocol Azithromycin 500 mg in 250 mls @ 250 mls/hr 03/28/22 23:45 03/28/22 23:48 Zithromax/Ns IV 250 mls/hr Q24H JAMES Administration Protocol Lorazepam 2 mg 03/28/22 23:17 03/29/22 04:45 Lorazepam 2 Mg/Ml Vial IV 2 mg Q1H PRN Administration CIWA-Ar 8-15 Lorazepam 4 mg 03/28/22 23:17 Lorazepam 2 Mg/Ml Vial IV Q1H PRN CIWA-Ar 16-25 Lorazepam 4 mg 03/28/22 23:17 03/29/22 08:45 Lorazepam 2 Mg/Ml Vial IV 4 mg Q15MIN PRN Administration CIWA-Ar >25 Magnesium Hydroxide 30 ml 03/28/22 23:17 Magnesium Hydroxide (Mom) Oral Liqd Udc PO Q4H PRN Constipation Methylprednisolone Sodium Succinate 40 mg 03/29/22 06:00 03/29/22 06:15 Methylprednisolone Sod Succinate 40 Mg/1 Ml Inj IV 40 mg Q8HR JAMES Administration Morphine Sulfate 2 mg 03/28/22 23:17 Morphine 2 Mg/1 Ml Inj IV Q4H PRN Pain, Moderate (4-6) Morphine Sulfate 4 mg 03/28/22 23:17 Morphine 4 Mg/1 Ml Inj IV Q4H PRN Pain , Severe (7-10) Ondansetron HCl 4 mg 03/28/22 23:17 Ondansetron 4 Mg/2 Ml Inj IV Q8H PRN Nausea And Vomiting Sodium Chloride 10 ml 03/29/22 10:00 03/29/22 09:58 Sodium Chloride 0.9% 10 Ml Flush Syringe IV 10 ml BID JAMES Administration Sodium Chloride 10 ml 03/28/22 23:17 Sodium Chloride 0.9% 10 Ml Flush Syringe IV PRN PRN LINE FLUSH Ziprasidone 20 mg 03/29/22 09:30 Ziprasidone Mesylate 20 Mg Vial IM 03/29/22 12:30 ONCE@0930 [facility] <DIOMEDES KEYS - Last Filed: 03/30/22 06:27> Assessment and Plan Assessment and plan: I saw and evaluated the patient. I agree with the findings and the plan of care as documented in the Nurse Practitioner's~note, with the following corrections and additions. Still with Acute Metabolic Encephalopathy secondary to substance abuse, was agressive requiring further sedation Aspiration precautions Advance care planning discussion ongoing. Hospitalist Physical - Constitutional Vitals: Temp Pulse Resp BP Pulse Ox 97.9 F 107 H 29 H 139/91 95 03/30/22 04:00 03/30/22 05:30 03/30/22 05:30 03/30/22 05:30 03/30/22 05:30 Results - Labs CBC & Chem 7: 03/30/22 04:34 03/30/22 04:34 Labs: Laboratory Last Values WBC 7.0 K/mm3 (4.5-11.0) 03/30/22 04:34 RBC 4.62 M/mm3 (3.65-5.03) 03/30/22 04:34 Hgb 12.8 gm/dl (10.1-14.3) 03/30/22 04:34 Hct 40.8 % (30.3-42.9) 03/30/22 04:34 MCV 88 fl (79-97) 03/30/22 04:34 MCH 28 pg (28-32) 03/30/22 04:34 MCHC 32 % (30-34) 03/30/22 04:34 RDW 21.4 % (13.2-15.2) H 03/30/22 04:34 Plt Count 276 K/mm3 (140-440) 03/30/22 04:34 Add Manual Diff Complete 03/28/22 19:18 Total Counted 100 03/28/22 19:18 Seg Neutrophils % Business Analyst [employer] 03/28/22 19:18 Seg Neuts % (Manual) 93.0 % (40.0-70.0) H 03/28/22 19:18 Band Neutrophils % 0 % 03/28/22 19:18 Lymphocytes % (Manual) 6.0 % (13.4-35.0) L 03/28/22 19:18 Reactive Lymphs % (Man) 0 % 03/28/22 19:18 Monocytes % (Manual) 1.0 % (0.0-7.3) 03/28/22 19:18 Eosinophils % (Manual) 0 % (0.0-4.3) 03/28/22 19:18 Basophils % (Manual) 0 % (0.0-1.8) 03/28/22 19:18 Metamyelocytes % 0 % 03/28/22 19:18 Myelocytes % 0 % 03/28/22 19:18 Promyelocytes % 0 % 03/28/22 19:18 Blast Cells % 0 % 03/28/22 19:18 Nucleated RBC % Not Reportable 03/28/22 19:18 Seg Neutrophils # Man 11.5 K/mm3 (1.8-7.7) H 03/28/22 19:18 Band Neutrophils # 0.0 K/mm3 03/28/22 19:18 Lymphocytes # (Manual) 0.7 K/mm3 (1.2-5.4) L 03/28/22 19:18 Abs React Lymphs (Man) 0.0 K/mm3 03/28/22 19:18 Monocytes # (Manual) 0.1 K/mm3 (0.0-0.8) 03/28/22 19:18 Eosinophils # (Manual) 0.0 K/mm3 (0.0-0.4) 03/28/22 19:18 Basophils # (Manual) 0.0 K/mm3 (0.0-0.1) 03/28/22 19:18 Metamyelocytes # 0.0 K/mm3 03/28/22 19:18 Myelocytes # 0.0 K/mm3 03/28/22 19:18 Promyelocytes # 0.0 K/mm3 03/28/22 19:18 Blast Cells # 0.0 K/mm3 03/28/22 19:18 WBC Morphology Not Reportable 03/28/22 19:18 Hypersegmented Neuts Not Reportable 03/28/22 19:18 Hyposegmented Neuts Not Reportable 03/28/22 19:18 Hypogranular Neuts Not Reportable 03/28/22 19:18 Smudge Cells Not Reportable 03/28/22 19:18 Toxic Granulation Not Reportable 03/28/22 19:18 Toxic Vacuolation Not Reportable 03/28/22 19:18 Dohle Bodies Not Reportable 03/28/22 19:18 Pelger-Huet Anomaly Not Reportable 03/28/22 19:18 Davian Rods Not Reportable 03/28/22 19:18 Platelet Estimate Consistent w auto 03/28/22 19:18 Clumped Platelets Not Reportable 03/28/22 19:18 Plt Clumps, EDTA Not Reportable 03/28/22 19:18 Large Platelets Not Reportable 03/28/22 19:18 Giant Platelets Not Reportable 03/28/22 19:18 Platelet Satelliting Not Reportable 03/28/22 19:18 Plt Morphology Comment Not Reportable 03/28/22 19:18 RBC Morphology Not Reportable 03/28/22 19:18 Dimorphic RBCs Not Reportable 03/28/22 19:18 Polychromasia Not Reportable 03/28/22 19:18 Hypochromasia Not Reportable 03/28/22 19:18 Poikilocytosis Not Reportable 03/28/22 19:18 Anisocytosis 1+ 03/28/22 19:18 Microcytosis Not Reportable 03/28/22 19:18 Macrocytosis Not Reportable 03/28/22 19:18 Spherocytes Not Reportable 03/28/22 19:18 Pappenheimer Bodies Not Reportable 03/28/22 19:18 Sickle Cells Not Reportable 03/28/22 19:18 Target Cells Not Reportable 03/28/22 19:18 Tear Drop Cells Rare 03/28/22 19:18 Ovalocytes Not Reportable 03/28/22 19:18 Helmet Cells Not Reportable 03/28/22 19:18 [place] Bodies Not Reportable 03/28/22 19:18 Dietrich Rings Not Reportable 03/28/22 19:18 Yazmin Cells Not Reportable 03/28/22 19:18 Bite Cells Not Reportable 03/28/22 19:18 Crenated Cell Not Reportable 03/28/22 19:18 Elliptocytes Not Reportable 03/28/22 19:18 Acanthocytes (Spur) Not Reportable 03/28/22 19:18 Rouleaux Not Reportable 03/28/22 19:18 Hemoglobin C Crystals Not Reportable 03/28/22 19:18 Schistocytes Not Reportable 03/28/22 19:18 Malaria parasites Not Reportable 03/28/22 19:18 Jer Bodies Not Reportable 03/28/22 19:18 Hem Pathologist Commnt No 03/28/22 19:18 ABG pH 7.344 pH Units (7.350-7.450) L 03/30/22 04:04 ABG pCO2 52.8 mm Hg 03/30/22 04:04 ABG pO2 92.9 mm Hg (80.0-90.0) H 03/30/22 04:04 ABG HCO3 28.1 mmol/L (20.0-26.0) H 03/30/22 04:04 ABG O2 Saturation 97.0 % (95.0-99.0) 03/30/22 04:04 ABG O2 Content 17.5 (0.0-44) 03/30/22 04:04 ABG Base Excess 1.5 mmol/L (-2.0-3.0) 03/30/22 04:04 ABG Hemoglobin 13.0 gm/dl (12.0-16.0) 03/30/22 04:04 ABG Carboxyhemoglobin 1.5 % (0.0-5.0) 03/30/22 04:04 ABG Methemoglobin 0.4 % (0.0-1.5) 03/30/22 04:04 Oxyhemoglobin 95.1 % (95.0-99.0) 03/30/22 04:04 FiO2 28 % 03/30/22 04:04 Sodium 141 mmol/L (137-145) 03/30/22 04:34 Potassium 4.6 mmol/L (3.6-5.0) 03/30/22 04:34 Chloride 105.0 mmol/L (98-107) 03/30/22 04:34 Carbon Dioxide 29 mmol/L (22-30) 03/30/22 04:34 Anion Gap 12 mmol/L 03/30/22 04:34 BUN 9 mg/dL (7-17) 03/30/22 04:34 Creatinine 0.5 mg/dL (0.6-1.2) L 03/30/22 04:34 Estimated GFR > 60 ml/min 03/30/22 04:34 BUN/Creatinine Ratio 18 % 03/30/22 04:34 Glucose 97 mg/dL (65-100) 03/30/22 04:34 POC Glucose 117 mg/dL (70-105) H 03/29/22 09:54 Calcium 9.5 mg/dL (8.4-10.2) 03/30/22 04:34 Total Bilirubin 0.30 mg/dL (0.1-1.2) 03/28/22 19:18 AST 36 units/L (5-40) 03/28/22 19:18 ALT 29 units/L (7-56) 03/28/22 19:18 Alkaline Phosphatase 85 units/L (35-129) 03/28/22 19:18 NT-Pro-B Natriuret Pep 556.4 pg/mL (0-900) 03/28/22 19:18 Total Protein 6.9 g/dL (6.3-8.2) 03/28/22 19:18 Albumin 4.1 g/dL (3.9-5) 03/28/22 19:18 Albumin/Globulin Ratio 1.5 % 03/28/22 19:18 Urine Color Yellow (Yellow) 03/29/22 18:10 Urine Turbidity Clear (Clear) 03/29/22 18:10 Urine pH 5.0 (5.0-7.0) 03/29/22 18:10 Ur Specific [place] 1.021 (1.003-1.030) 03/29/22 18:10 Urine Protein <15 mg/dl mg/dL (Negative) 03/29/22 18:10 Urine Glucose (UA) Neg mg/dL (Negative) 03/29/22 18:10 Urine Ketones Neg mg/dL (Negative) 03/29/22 18:10 Urine Blood Neg (Negative) 03/29/22 18:10 Urine Nitrite Neg (Negative) 03/29/22 18:10 Urine Bilirubin Neg (Negative) 03/29/22 18:10 Urine Urobilinogen < 2.0 mg/dL (<2.0) 03/29/22 18:10 Ur Leukocyte Esterase Lg (Negative) 03/29/22 18:10 Urine WBC (Auto) 6.0 /HPF (0.0-6.0) 03/29/22 18:10 Urine RBC (Auto) 2.0 /HPF (0.0-6.0) 03/29/22 18:10 U Epithel Cells (Auto) 6.0 /HPF (0-13.0) 03/29/22 18:10 Urine Mucus Few /HPF 03/29/22 18:10 Salicylates < 0.3 mg/dL (2.8-20.0) L 03/28/22 19:18 Urine Opiates Screen Presumptive negative 03/29/22 18:10 Urine Methadone Screen Presumptive negative 03/29/22 18:10 Acetaminophen 5.0 ug/mL (10.0-30.0) L 03/28/22 19:18 Ur Barbiturates Screen Presumptive negative 03/29/22 18:10 Ur Phencyclidine Scrn Presumptive negative 03/29/22 18:10 Ur Amphetamines Screen Presumptive negative 03/29/22 18:10 U Benzodiazepines Scrn Presumptive negative 03/29/22 18:10 Urine Cocaine Screen Presumptive positive 03/29/22 18:10 U Marijuana (THC) Screen Presumptive positive 03/29/22 18:10 Drugs of Abuse Note Disclamer 03/29/22 18:10 Plasma/Serum Alcohol < 0.01 % (0-0.07) 03/28/22 19:18 Microbiology: Microbiology 03/28/22 23:19 Peripheral/Venous Blood Culture - Preliminary NO GROWTH AFTER 24 HOURS 03/28/22 22:35 Peripheral/Venous Blood Culture - Preliminary NO GROWTH AFTER 24 HOURS Landa/IV: Voiding Method External Female Catheter Active Medications - Current Medications Current Medications: Generic Name Dose Route Start Last Admin Trade Name Freq PRN Reason Stop Dose Admin Acetaminophen 650 mg 03/28/22 23:17 Acetaminophen 325 Mg Tab PO Q6H PRN Pain MILD(1-3)/Fever >100.5/BAÑUELOS Albuterol/Ipratropium 1 ampul 03/29/22 02:00 03/30/22 02:18 Ipratropium/Albuterol Sulfate 3 Ml Ampul.Neb IH Not Given Q6HRT [facility] Enoxaparin Sodium 40 mg 03/29/22 10:00 03/29/22 09:57 Enoxaparin 40 Mg/0.4 Ml Inj SUB-Q 40 mg QDAY@1000 [facility] Administration Protocol Famotidine 20 mg 03/29/22 10:00 03/29/22 10:00 Famotidine 20 Mg/2 Ml Inj IV 20 mg DAILY JAMES Administration Hydralazine HCl 5 mg 03/30/22 00:32 03/30/22 00:53 Hydralazine 20 Mg/1 Ml Inj IV 5 mg Q30MIN PRN Administration Blood Pressure Ceftriaxone Sodium 2 gm in 100 mls @ 200 mls/hr 03/29/22 10:00 03/29/22 09:58 Rocephin/Ns 2 Gm/100 Ml IV 200 mls/hr Q24H JAMES Administration Protocol Azithromycin 500 mg in 250 mls @ 250 mls/hr 03/28/22 23:45 03/30/22 02:43 Zithromax/Ns IV 250 mls/hr Q24H JAMES Administration Protocol Dextrose/Sodium Chloride 1,000 mls @ 75 mls/hr 03/29/22 13:00 03/30/22 02:31 D5/0.45ns IV 03/30/22 12:59 75 mls/hr DIRECT JAMES Infusion Thiamine HCl 100 mg/ Folic 1,011.2 mls @ 100 mls/hr 03/29/22 13:00 03/29/22 13:45 Acid 1 mg/ Multivitamins/ IV 03/30/22 20:07 100 mls/hr Minerals 10 ml/ Dextrose/ QDAY JAMES Administration Sodium Chloride Lorazepam 2 mg 03/28/22 23:17 03/30/22 05:03 Lorazepam 2 Mg/Ml Vial IV 2 mg Q1H PRN Administration CIWA-Ar 8-15 Lorazepam 4 mg 03/28/22 23:17 03/29/22 20:13 Lorazepam 2 Mg/Ml Vial IV 4 mg Q1H PRN Administration CIWA-Ar 16-25 Lorazepam 4 mg 03/28/22 23:17 03/29/22 08:45 Lorazepam 2 Mg/Ml Vial IV 4 mg Q15MIN PRN Administration CIWA-Ar >25 Magnesium Hydroxide 30 ml 03/28/22 23:17 Magnesium Hydroxide (Mom) Oral Liqd Udc PO Q4H PRN Constipation Methylprednisolone Sodium Succinate 40 mg 03/29/22 06:00 03/30/22 05:04 Methylprednisolone Sod Succinate 40 Mg/1 Ml Inj IV 40 mg Q8HR JAMES Administration Morphine Sulfate 2 mg 03/28/22 23:17 Morphine 2 Mg/1 Ml Inj IV Q4H PRN Pain, Moderate (4-6) Morphine Sulfate 4 mg 03/28/22 23:17 Morphine 4 Mg/1 Ml Inj IV Q4H PRN Pain , Severe (7-10) Ondansetron HCl 4 mg 03/28/22 23:17 Ondansetron 4 Mg/2 Ml Inj IV Q8H PRN Nausea And Vomiting Sodium Chloride 10 ml 03/29/22 10:00 03/29/22 22:32 Sodium Chloride 0.9% 10 Ml Flush Syringe IV 10 ml BID JAMES Administration Sodium Chloride 10 ml 03/28/22 23:17 Sodium Chloride 0.9% 10 Ml Flush Syringe IV PRN PRN LINE FLUSH Nutrition/Malnutrition Assess - Dietary Evaluation Nutrition/Malnutrition Findings: Nutrition Notes Start: 03/29/22 16:08 Freq: Status: Active Protocol: Document 03/29/22 16:08 KAILYN (Rec: 03/29/22 16:32 [email or web address] [id number]) Nutrition Notes Need for Assessment generated from: MD Order,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 Current Diet Regular Diet (since B 03/29). Labs/Tests 03/29: Crea 0.5, Glu 123. Pertinent Medications 03/29: Thiamine 100 mg, Folic acid 1 mg, Multivitamins, Minerals 10 ml, others nutritionally unremarkable. Height 5 ft 5 in Weight 53.2 kg [place] Body Weight (kg) 56.81 BMI 19.5 Intake Prior to Admission Good Weight change and time frame Pt states being unsure if loss body weight [employer]IXING [employer]. Weight Status Appropriate Subjective/Other Information RD consult for risk of malnutrition and nutrition education assessments. No reports available on Pt's PO intake of meals at the time , will assess at F/U. Pt is on Nasal Cannula, O2 saturation @ 98%, according to Physical Assessment History notes. Pt has missing teeth, according to Physical Assessment History notes. Pt shows no signs of concern for risk of malnutrition atthe time, according to Physical Assessment History notes. Pt still in critical condition , not a candidate for Nutrition Education at the time, will assess feasibility on F/U. Percent of energy/protein needs met: Prescribed Regular Diet provides for energy/protein needs (2,289 Kcal/89 g) during LOS. Burn Absent Trauma Absent GI Symptoms None Food Allergy No Skin Integrity/Comment Assessment WNL. Minimum of two criteria No #1 Nutrition Diagnosis No nutrition diagnosis at this time Comments: Skip assess Pt's PO intake of meals and feasibility for nutrition education at F/U. Is patient on ventilator? No Is Patient Ambulatory and/or Out of Bed Yes REE-([place]-ambulatory/OOB) [ 1472.744 [id number]] Kcal/Kg value to use for calculation 29 Approximate Energy Requirements Using 1543 kcal/Kg Calculation Used for Recommendations Kcal/kg Additional Notes Protein: 0.8-1 g/Kg IBW; 46-57 g/day. Fluids: 1 ml/Kcal, or as per MD. Nutrition Intervention Change Diet Order: Continue Regular Diet, as tolerated. Follow-Up By: 04/05/22 Additional Comments Nutrition education will be provided on F/U, if feasible. Continue monitoring food tolerance, %PO intake of meals , and BM.
[2022-03-29] MEDS ORDERED: D5W/0.45% NACL 1,000 ML IV SCH (13:00)
[2022-03-29] MEDS: FOLIC ACID IV SCH (13:45)
[2022-03-29] MEDS: [UNRECOGNIZED DRUG - OTHER] IV SCH (13:45)
[2022-03-29] MEDS: MULTIPLE VITAMIN IV SCH (13:45)
[2022-03-29] MEDS: THIAMINE IV SCH (13:45)
[2022-03-29 18:56] LABS: Bilirubin,Urine NEG (Negative); Blood,Urine NEG (Negative); Color,Urine Yellow (Yellow); Mucus,Urine FEW /HPF; Protein,Urine <15 mg/dL mg/dL (Negative); Urobilinogen,Urine < 2.0 mg/dL (<2.0)
[2022-03-29 19:03] LABS: Amphetamine Screen,Urine PRESUMPTIVE NEGATIVE; Benzodiazepines Screen,Urine PRESUMPTIVE NEGATIVE; Cannabinoid Screen,Urine PRESUMPTIVE POSITIVE; Cocaine Screen,Urine PRESUMPTIVE POSITIVE; Methadone Screen,Urine PRESUMPTIVE NEGATIVE; Opiate Screen,Urine PRESUMPTIVE NEGATIVE
[2022-03-29] MEDS ORDERED: WATER FOR INJ Sterile (PF) 10 ML ONE (22:07)
[2022-03-30] MEDS: LORazepam 2 MG/ML VIAL IV PRN ×3 (00:05→05:03)
[2022-03-30] MEDS: hydrALAZINE 20 MG/1 ML INJ IV PRN ×2 (00:53→09:32)
[2022-03-30] MEDS: IPRATROPIUM/ALBUTEROL SULFATE 3 ML AMPUL.NEB IH SCH ×4 (02:18→20:23)
[2022-03-30] MEDS: AZITHROMYCIN/NS 500 MG/250 ML 500 MG/250 ML BAG IV SCH (02:43)
[2022-03-30 04:29] LABS: ABG Base Excess 1.5 mmol/L (-2.0-3.0); ABG HCO3 28.1 mmol/L (20.0-26.0); ABG Methemoglobin 0.4 % (0.0-1.5); ABG PCO2 52.8 mm Hg; ABG PH 7.344 pH Units (7.350-7.450); ABG PO2 92.9 mm Hg (80.0-90.0)
[2022-03-30 04:52] LABS: Hematocrit 40.8 % (30.3-42.9); Hemoglobin 12.8 gm/dl (10.1-14.3); Mean Corpuscular HGB Conc 32 % (30-34); Mean Corpuscular Volume 88 fl (79-97); Platelet Count 276 K/mm3 (140-440); Red Blood Count 4.62 M/mm3 (3.65-5.03)
[2022-03-30 04:57] LABS: Red Cell Distribution Width 21.4 % (13.2-15.2)
[2022-03-30] MEDS: methylPREDNISolone Sod Succinate 40 MG/1 ML INJ IV SCH ×2 (05:04→15:07)
[2022-03-30 05:09] LABS: Blood Urea Nitrogen 9 mg/dL (7-17); Calcium 9.5 mg/dL (8.4-10.2); Hemolysis Index 14
[2022-03-30 05:17] LABS: BUN/Creatinine Ratio 18
[2022-03-30] MEDS ORDERED: cloNIDine 0.1 MG TAB PO PRN (07:58)
[2022-03-30] MEDS ORDERED: ALBUTEROL 2.5 MG/3 ML NEBU IH PRN (08:33)
[2022-03-30] MEDS: [UNRECOGNIZED DRUG - OTHER] IV SCH (09:15)
[2022-03-30] MEDS: cefTRIAXone/NS 2 GM/100 ML 2 GM/100 ML BAG IV SCH (09:15)
[2022-03-30] MEDS: THIAMINE IV SCH (09:15)
[2022-03-30] MEDS: FOLIC ACID IV SCH (09:15)
[2022-03-30] MEDS: FAMOTIDINE 20 MG/2 ML INJ IV SCH (09:15)
[2022-03-30] MEDS: MULTIPLE VITAMIN IV SCH (09:15)
[2022-03-30] MEDS: ENOXAPARIN 40 MG/0.4 ML INJ SUB-Q SCH (09:16)
--- NOTE | 2022-03-30 14:41 | Progress Note ---
<FARIBA CELAYA - Last Filed: 03/30/22 15:05> Assessment and Plan Assessment and plan: This is a 56-year-old female with known history of COPD, HTN, chronic Tobacco, cocaine, and alcohol abuse admitted for acute hypoxic and hypercapneic respiratory failure Hospital Course to Date: 03/29: Agitated and combative this am required four point restraints and IV ativan per CIWA protocol. Continue CIWA protocol and mental health consulted for further recommendations. Patient is off Bipap, now stable on 4L NC. This am ABG noted. Continue IV steroids and bronchodilators, wean O2 supplementation as tolerated for SPO2 goal above 90%. Pulmonary also on consult. 03/30: Remains lethargic and confused. On 2L NC, ABG improved, wheezing appreciated throughout her lungs. Patient tolerated Bipap overnight, continue IV Steroids and bronchodilators and wean O2 supplementation as tolerated. Patient remains afebrile and leukocytosis resolved, procal normal. Continue empiric IV Abx X3days for CAP. Assessment and Plan #Acute Hypoxic and Hypercapnic Respiratory Failure 12/08 #COPD (Chronic Obstructive Pulmonary Disease) #Community Acquired Pneumonia(CAP) #Tobacco Dependence - Presented with respiratory acidosis, hypercapnea and hypoxia requiring continuous Bipap - Chest x-ray of reveals atelectasis versus developing infiltrate in the right lung base - Stable on 2L NC SPO2 above 95% - Repeat ABG noted - Continue PRN Bronchodilator and IV steroids - Continue empiric IV Abx - Continue O2 supplementation and wean as tolerated - Continue SPO2 monitoring for SPO2 goal above 90% - Pulmonary is also following - Smoking Cessation education and resources when coherent and mentally appropriate #Acute Enccephalopathy #Polysubstances Abuse - most likely due to cocaine and alcohol abuse - Per patient she smoked crack cocaine and also drank 2 shots of alcohol earlier on day of admit - UDS +cocaine and THC - Episodes of agitation/combative this am, s/p IV ativan per CIWA - Continue CIWA protocol - Frequent reorientation - Fall precautions - Mental Health consulted #Community Acquired Pneumonia(CAP) #Leukocytosis - Chest x-ray of reveals atelectasis versus developing infiltrate in the right lung base - Now stable on 2L NC - UA/urine and blood cultures pending - Patient remains afebrile and normotensive, leukocytosis resolved - procal and CRP wnr - Continue empiric IV Abx- Rocephin and [id number] - Continue to F/U on cultures - Daily CBC monitor - Consider ID consult if febrile or/and if leukocytosis persist #Hypertension - BP is stable - Continue blood pressure monitor per protocol - Maintain MAP above 65 and SBP less than 160 - Resume home meds once list is available #GI/DVT Prophylaxis - PPI- Pepcid - Lovenox SubQ - SCDs to bilateral lower extremities while in bed The high probability of a clinically significant, sudden or life threatening deterioration of the [multiple] system(s) required my full and direct attention, intervention and personal management. The aggregate critical care time was [40] minutes. This time is in addition to time spent performing reported procedures but includes the following: [x] Data Review and interpretation [x] Patient assessment and monitoring of vital signs [x] Documentation [x] Medication orders and management Disposition Plan: IMCU Total Time Spent with Patient (Minutes): 40 History Interval history: Patient seen and examined at the bedside. Remains lethargic and confused, easily arousable, on 2L NC SPO2 at 100%. Patient tolerated Bipap overnight Hospitalist Physical - Constitutional Vitals: Temp Pulse Resp BP Pulse Ox 98.0 F 104 H 30 H 137/95 98 03/30/22 12:00 03/30/22 13:30 03/30/22 14:00 03/30/22 14:00 03/30/22 14:00 General appearance: Present: no acute distress, cachectic - EENT Eyes: Present: PERRL ENT: hearing intact - Neck Neck: Present: normal ROM - Respiratory Respiratory effort: normal Respiratory: bilateral: wheezing - Cardiovascular Rhythm: regular Heart Sounds: Present: S1 & S2 - Extremities Extremities: no ischemia, pulses intact, pulses symmetrical Peripheral Pulses: within normal limits - Abdominal General gastrointestinal: soft, non-distended, normal bowel sounds - Integumentary Integumentary: Present: warm, dry - Psychiatric Psychiatric: cooperative, other (Lethargic, easily arousable) - Neurologic Neurologic: moves all extremities, other (Lethargic, easily arousable) - Allied Health Allied health notes reviewed: nursing, case management Results - Labs CBC & Chem 7: 03/30/22 04:34 03/30/22 04:34 Labs: Laboratory Last Values WBC 7.0 K/mm3 (4.5-11.0) 03/30/22 04:34 RBC 4.62 M/mm3 (3.65-5.03) 03/30/22 04:34 Hgb 12.8 gm/dl (10.1-14.3) 03/30/22 04:34 Hct 40.8 % (30.3-42.9) 03/30/22 04:34 MCV 88 fl (79-97) 03/30/22 04:34 MCH 28 pg (28-32) 03/30/22 04:34 MCHC 32 % (30-34) 03/30/22 04:34 RDW 21.4 % (13.2-15.2) H 03/30/22 04:34 Plt Count 276 K/mm3 (140-440) 03/30/22 04:34 Add Manual Diff Complete 03/28/22 19:18 Total Counted 100 03/28/22 19:18 Seg Neutrophils % Optical Effects Layout Person 03/28/22 19:18 Seg Neuts % (Manual) 93.0 % (40.0-70.0) H 03/28/22 19:18 Band Neutrophils % 0 % 03/28/22 19:18 Lymphocytes % (Manual) 6.0 % (13.4-35.0) L 03/28/22 19:18 Reactive Lymphs % (Man) 0 % 03/28/22 19:18 Monocytes % (Manual) 1.0 % (0.0-7.3) 03/28/22 19:18 Eosinophils % (Manual) 0 % (0.0-4.3) 03/28/22 19:18 Basophils % (Manual) 0 % (0.0-1.8) 03/28/22 19:18 Metamyelocytes % 0 % 03/28/22 19:18 Myelocytes % 0 % 03/28/22 19:18 Promyelocytes % 0 % 03/28/22 19:18 Blast Cells % 0 % 03/28/22 19:18 Nucleated RBC % Not Reportable 03/28/22 19:18 Seg Neutrophils # Man 11.5 K/mm3 (1.8-7.7) H 03/28/22 19:18 Band Neutrophils # 0.0 K/mm3 03/28/22 19:18 Lymphocytes # (Manual) 0.7 K/mm3 (1.2-5.4) L 03/28/22 19:18 Abs React Lymphs (Man) 0.0 K/mm3 03/28/22 19:18 Monocytes # (Manual) 0.1 K/mm3 (0.0-0.8) 03/28/22 19:18 Eosinophils # (Manual) 0.0 K/mm3 (0.0-0.4) 03/28/22 19:18 Basophils # (Manual) 0.0 K/mm3 (0.0-0.1) 03/28/22 19:18 Metamyelocytes # 0.0 K/mm3 03/28/22 19:18 Myelocytes # 0.0 K/mm3 03/28/22 19:18 Promyelocytes # 0.0 K/mm3 03/28/22 19:18 Blast Cells # 0.0 K/mm3 03/28/22 19:18 WBC Morphology Not Reportable 03/28/22 19:18 Hypersegmented Neuts Not Reportable 03/28/22 19:18 Hyposegmented Neuts Not Reportable 03/28/22 19:18 Hypogranular Neuts Not Reportable 03/28/22 19:18 Smudge Cells Not Reportable 03/28/22 19:18 Toxic Granulation Not Reportable 03/28/22 19:18 Toxic Vacuolation Not Reportable 03/28/22 19:18 Dohle Bodies Not Reportable 03/28/22 19:18 Pelger-Huet Anomaly Not Reportable 03/28/22 19:18 Davian Rods Not Reportable 03/28/22 19:18 Platelet Estimate Consistent w auto 03/28/22 19:18 Clumped Platelets Not Reportable 03/28/22 19:18 Plt Clumps, EDTA Not Reportable 03/28/22 19:18 Large Platelets Not Reportable 03/28/22 19:18 Giant Platelets Not Reportable 03/28/22 19:18 Platelet Satelliting Not Reportable 03/28/22 19:18 Plt Morphology Comment Not Reportable 03/28/22 19:18 RBC Morphology Not Reportable 03/28/22 19:18 Dimorphic RBCs Not Reportable 03/28/22 19:18 Polychromasia Not Reportable 03/28/22 19:18 Hypochromasia Not Reportable 03/28/22 19:18 Poikilocytosis Not Reportable 03/28/22 19:18 Anisocytosis 1+ 03/28/22 19:18 Microcytosis Not Reportable 03/28/22 19:18 Macrocytosis Not Reportable 03/28/22 19:18 Spherocytes Not Reportable 03/28/22 19:18 Pappenheimer Bodies Not Reportable 03/28/22 19:18 Sickle Cells Not Reportable 03/28/22 19:18 Target Cells Not Reportable 03/28/22 19:18 Tear Drop Cells Rare 03/28/22 19:18 Ovalocytes Not Reportable 03/28/22 19:18 Helmet Cells Not Reportable 03/28/22 19:18 [place] Bodies Not Reportable 03/28/22 19:18 [place] Rings Not Reportable 03/28/22 19:18 Yazmin Cells Not Reportable 03/28/22 19:18 Bite Cells Not Reportable 03/28/22 19:18 Crenated Cell Not Reportable 03/28/22 19:18 Elliptocytes Not Reportable 03/28/22 19:18 Acanthocytes (Spur) Not Reportable 03/28/22 19:18 Rouleaux Not Reportable 03/28/22 19:18 Hemoglobin C Crystals Not Reportable 03/28/22 19:18 Schistocytes Not Reportable 03/28/22 19:18 Malaria parasites Not Reportable 03/28/22 19:18 Jer Bodies Not Reportable 03/28/22 19:18 Hem Pathologist Commnt No 03/28/22 19:18 ABG pH 7.344 pH Units (7.350-7.450) L 03/30/22 04:04 ABG pCO2 52.8 mm Hg 03/30/22 04:04 ABG pO2 92.9 mm Hg (80.0-90.0) H 03/30/22 04:04 ABG HCO3 28.1 mmol/L (20.0-26.0) H 03/30/22 04:04 ABG O2 Saturation 97.0 % (95.0-99.0) 03/30/22 04:04 ABG O2 Content 17.5 (0.0-44) 03/30/22 04:04 ABG Base Excess 1.5 mmol/L (-2.0-3.0) 03/30/22 04:04 ABG Hemoglobin 13.0 gm/dl (12.0-16.0) 03/30/22 04:04 ABG Carboxyhemoglobin 1.5 % (0.0-5.0) 03/30/22 04:04 ABG Methemoglobin 0.4 % (0.0-1.5) 03/30/22 04:04 Oxyhemoglobin 95.1 % (95.0-99.0) 03/30/22 04:04 FiO2 28 % 03/30/22 04:04 Sodium 141 mmol/L (137-145) 03/30/22 04:34 Potassium 4.6 mmol/L (3.6-5.0) 03/30/22 04:34 Chloride 105.0 mmol/L (98-107) 03/30/22 04:34 Carbon Dioxide 29 mmol/L (22-30) 03/30/22 04:34 Anion Gap 12 mmol/L 03/30/22 04:34 BUN 9 mg/dL (7-17) 03/30/22 04:34 Creatinine 0.5 mg/dL (0.6-1.2) L 03/30/22 04:34 Estimated GFR > 60 ml/min 03/30/22 04:34 BUN/Creatinine Ratio 18 % 03/30/22 04:34 Glucose 97 mg/dL (65-100) 03/30/22 04:34 POC Glucose 118 mg/dL (70-105) H 03/30/22 08:25 Calcium 9.5 mg/dL (8.4-10.2) 03/30/22 04:34 Total Bilirubin 0.30 mg/dL (0.1-1.2) 03/28/22 19:18 AST 36 units/L (5-40) 03/28/22 19:18 ALT 29 units/L (7-56) 03/28/22 19:18 Alkaline Phosphatase 85 units/L (35-129) 03/28/22 19:18 C-Reactive Protein 0.30 mg/dL (0.00-1.30) 03/30/22 04:34 NT-Pro-B Natriuret Pep 556.4 pg/mL (0-900) 03/28/22 19:18 Total Protein 6.9 g/dL (6.3-8.2) 03/28/22 19:18 Albumin 4.1 g/dL (3.9-5) 03/28/22 19:18 Albumin/Globulin Ratio 1.5 % 03/28/22 19:18 Urine Color Yellow (Yellow) 03/29/22 18:10 Urine Turbidity Clear (Clear) 03/29/22 18:10 Urine pH 5.0 (5.0-7.0) 03/29/22 18:10 Ur Specific Joseph 1.021 (1.003-1.030) 03/29/22 18:10 Urine Protein <15 mg/dl mg/dL (Negative) 03/29/22 18:10 Urine Glucose (UA) Neg mg/dL (Negative) 03/29/22 18:10 Urine Ketones Neg mg/dL (Negative) 03/29/22 18:10 Urine Blood Neg (Negative) 03/29/22 18:10 Urine Nitrite Neg (Negative) 03/29/22 18:10 Urine Bilirubin Neg (Negative) 03/29/22 18:10 Urine Urobilinogen < 2.0 mg/dL (<2.0) 03/29/22 18:10 Ur Leukocyte Esterase Lg (Negative) 03/29/22 18:10 Urine WBC (Auto) 6.0 /HPF (0.0-6.0) 03/29/22 18:10 Urine RBC (Auto) 2.0 /HPF (0.0-6.0) 03/29/22 18:10 U Epithel Cells (Auto) 6.0 /HPF (0-13.0) 03/29/22 18:10 Urine Mucus Few /HPF 03/29/22 18:10 Salicylates < 0.3 mg/dL (2.8-20.0) L 03/28/22 19:18 Urine Opiates Screen Presumptive negative 03/29/22 18:10 Urine Methadone Screen Presumptive negative 03/29/22 18:10 Acetaminophen 5.0 ug/mL (10.0-30.0) L 03/28/22 19:18 Ur Barbiturates Screen Presumptive negative 03/29/22 18:10 Ur Phencyclidine Scrn Presumptive negative 03/29/22 18:10 Ur Amphetamines Screen Presumptive negative 03/29/22 18:10 U Benzodiazepines Scrn Presumptive negative 03/29/22 18:10 Urine Cocaine Screen Presumptive positive 03/29/22 18:10 U Marijuana (THC) Screen Presumptive positive 03/29/22 18:10 Drugs of Abuse Note Disclamer 03/29/22 18:10 Plasma/Serum Alcohol < 0.01 % (0-0.07) 03/28/22 19:18 Microbiology: Microbiology 03/28/22 23:19 Peripheral/Venous Blood Culture - Preliminary NO GROWTH AFTER 24 HOURS 03/28/22 22:35 Peripheral/Venous Blood Culture - Preliminary NO GROWTH AFTER 24 HOURS Landa/IV: Voiding Method Incontinent Active Medications - Current Medications Current Medications: Generic Name Dose Route Start Last Admin Trade Name Freq PRN Reason Stop Dose Admin Acetaminophen 650 mg 03/28/22 23:17 Acetaminophen 325 Mg Tab PO Q6H PRN Pain MILD(1-3)/Fever >100.5/BAÑUELOS Albuterol 2.5 mg 03/30/22 08:33 Albuterol 2.5 Mg/3 Ml Nebu IH Q4HRT PRN Shortness Of Breath Albuterol/Ipratropium 1 ampul 03/30/22 14:00 Ipratropium/Albuterol Sulfate 3 Ml Ampul.Neb IH TIDRT [facility] Arformoterol Tartrate 15 mcg 03/30/22 20:00 Arformoterol 15 Mcg/2 Ml Nebu IH Q12HRT [facility] Azithromycin 500 mg 03/30/22 22:00 Azithromycin 250 Mg Tab PO 04/01/22 22:01 Q24H [facility] Protocol Budesonide 0.5 mg 03/30/22 20:00 Budesonide 0.5 Mg/2 Ml Nebu IH Q12HRT [facility] Clonidine HCl 0.1 mg 03/30/22 07:58 Clonidine 0.1 Mg Tab PO Q4H PRN Agitation Enoxaparin Sodium 40 mg 03/29/22 10:00 03/30/22 09:16 Enoxaparin 40 Mg/0.4 Ml Inj SUB-Q 40 mg QDAY@1000 [facility] Administration Protocol Famotidine 20 mg 03/31/22 10:00 Famotidine 20 Mg Tab PO DAILY [facility] Hydralazine HCl 5 mg 03/30/22 00:32 03/30/22 09:32 Hydralazine 20 Mg/1 Ml Inj IV 5 mg Q30MIN PRN Administration SBP >/=160; DBP >/=100 Ceftriaxone Sodium 2 gm in 100 mls @ 200 mls/hr 03/29/22 10:00 03/30/22 09:15 Rocephin/Ns 2 Gm/100 Ml IV 04/01/22 10:29 200 mls/hr Q24H JAMES Administration Protocol Thiamine HCl 100 mg/ Folic 1,011.2 mls @ 100 mls/hr 03/29/22 13:00 03/30/22 09:15 Acid 1 mg/ Multivitamins/ IV 03/30/22 20:07 100 mls/hr Minerals 10 ml/ Dextrose/ QDAY JAMES Administration Sodium Chloride Lorazepam 2 mg 03/28/22 23:17 03/30/22 05:03 Lorazepam 2 Mg/Ml Vial IV 2 mg Q1H PRN Administration CIWA-Ar 8-15 Lorazepam 4 mg 03/28/22 23:17 03/29/22 20:13 Lorazepam 2 Mg/Ml Vial IV 4 mg Q1H PRN Administration CIWA-Ar 16-25 Lorazepam 4 mg 03/28/22 23:17 03/29/22 08:45 Lorazepam 2 Mg/Ml Vial IV 4 mg Q15MIN PRN Administration CIWA-Ar >25 Magnesium Hydroxide 30 ml 03/28/22 23:17 Magnesium Hydroxide (Mom) Oral Liqd Udc PO Q4H PRN Constipation Methylprednisolone Sodium Succinate 40 mg 03/29/22 06:00 03/30/22 05:04 Methylprednisolone Sod Succinate 40 Mg/1 Ml Inj IV 40 mg Q8HR JAMES Administration Morphine Sulfate 2 mg 03/28/22 23:17 Morphine 2 Mg/1 Ml Inj IV Q4H PRN Pain, Moderate (4-6) Morphine Sulfate 4 mg 03/28/22 23:17 Morphine 4 Mg/1 Ml Inj IV Q4H PRN Pain , Severe (7-10) Ondansetron HCl 4 mg 03/28/22 23:17 Ondansetron 4 Mg/2 Ml Inj IV Q8H PRN Nausea And Vomiting Sodium Chloride 10 ml 03/29/22 10:00 03/30/22 09:15 Sodium Chloride 0.9% 10 Ml Flush Syringe IV 10 ml BID JAMES Administration Sodium Chloride 10 ml 03/28/22 23:17 Sodium Chloride 0.9% 10 Ml Flush Syringe IV PRN PRN LINE FLUSH Nutrition/Malnutrition Assess - Dietary Evaluation Nutrition/Malnutrition Findings: Nutrition Notes Start: 03/29/22 16:08 Freq: Status: Active Protocol: Document 03/29/22 16:08 KAILYN (Rec: 03/29/22 16:32 KAILYN [id number]) Nutrition Notes Need for Assessment generated 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 Current Diet Regular Diet (since B 03/29). Labs/Tests 03/29: Crea 0.5, Glu 123. Pertinent Medications 03/29: Thiamine 100 mg, Folic acid 1 mg, Multivitamins, Minerals 10 ml, others nutritionally unremarkable. Height 5 ft 5 in Weight 53.2 kg [place] Body Weight (kg) 56.81 BMI 19.5 Intake Prior to Admission Good Weight change and time frame Pt states being unsure if loss body weight INK BLENDER. Weight Status Appropriate Subjective/Other Information RD consult for risk of malnutrition and nutrition education assessments. No reports available on Pt's PO intake of meals at the time , will assess at F/U. Pt is on Nasal Cannula, O2 saturation @ 98%, according to Physical Assessment History notes. Pt has missing teeth, according to Physical Assessment History notes. Pt shows no signs of concern for risk of malnutrition atthe time, according to Physical Assessment History notes. Pt still in critical condition , not a candidate for Nutrition Education at the time, will assess feasibility on F/U. Percent of energy/protein needs met: Prescribed Regular Diet provides for energy/protein needs (2,289 Kcal/89 g) during LOS. Burn Absent Trauma Absent GI Symptoms None Food Allergy No Skin Integrity/Comment Assessment WNL. Minimum of two criteria No #1 Nutrition Diagnosis No nutrition diagnosis at this time Comments: Skip assess Pt's PO intake of meals and feasibility for nutrition education at F/U. Is patient on ventilator? No Is Patient Ambulatory and/or Out of Bed Yes REE-([place]-St. Jeor-ambulatory/OOB) [ 6062.744 NUTR.[id number]] Kcal/Kg value to use for calculation 29 Approximate Energy Requirements Using 1543 kcal/Kg Calculation Used for Recommendations Kcal/kg Additional Notes Protein: 0.8-1 g/Kg IBW; 46-57 g/day. Fluids: 1 ml/Kcal, or as per MD. Nutrition Intervention Change Diet Order: Continue Regular Diet, as tolerated. Follow-Up By: 04/05/22 Additional Comments Nutrition education will be provided on F/U, if feasible. Continue monitoring food tolerance, %PO intake of meals , and BM. <DIOMEDES KEYS - Last Filed: 03/31/22 07:11> Assessment and Plan Assessment and plan: I saw and evaluated the patient. I agree with the findings and the plan of care as documented in the Nurse Practitioner's~note, with the following corrections and additions. Hospitalist Physical - Constitutional Vitals: Temp Pulse Resp BP Pulse Ox 97.6 F 83 15 134/93 100 03/31/22 06:12 03/31/22 06:06 03/31/22 06:06 03/31/22 06:00 03/31/22 06:06 Results - Labs CBC & Chem 7: 03/30/22 04:34 03/31/22 04:32 Labs: Laboratory Last Values WBC 7.0 K/mm3 (4.5-11.0) 03/30/22 04:34 RBC 4.62 M/mm3 (3.65-5.03) 03/30/22 04:34 Hgb 12.8 gm/dl (10.1-14.3) 03/30/22 04:34 Hct 40.8 % (30.3-42.9) 03/30/22 04:34 MCV 88 fl (79-97) 03/30/22 04:34 MCH 28 pg (28-32) 03/30/22 04:34 MCHC 32 % (30-34) 03/30/22 04:34 RDW 21.4 % (13.2-15.2) H 03/30/22 04:34 Plt Count 276 K/mm3 (140-440) 03/30/22 04:34 Add Manual Diff Complete 03/28/22 19:18 Total Counted 100 03/28/22 19:18 Seg Neutrophils % Optical Effects Layout Person 03/28/22 19:18 Seg Neuts % (Manual) 93.0 % (40.0-70.0) H 03/28/22 19:18 Band Neutrophils % 0 % 03/28/22 19:18 Lymphocytes % (Manual) 6.0 % (13.4-35.0) L 03/28/22 19:18 Reactive Lymphs % (Man) 0 % 03/28/22 19:18 Monocytes % (Manual) 1.0 % (0.0-7.3) 03/28/22 19:18 Eosinophils % (Manual) 0 % (0.0-4.3) 03/28/22 19:18 Basophils % (Manual) 0 % (0.0-1.8) 03/28/22 19:18 Metamyelocytes % 0 % 03/28/22 19:18 Myelocytes % 0 % 03/28/22 19:18 Promyelocytes % 0 % 03/28/22 19:18 Blast Cells % 0 % 03/28/22 19:18 Nucleated RBC % Not Reportable 03/28/22 19:18 Seg Neutrophils # Man 11.5 K/mm3 (1.8-7.7) H 03/28/22 19:18 Band Neutrophils # 0.0 K/mm3 03/28/22 19:18 Lymphocytes # (Manual) 0.7 K/mm3 (1.2-5.4) L 03/28/22 19:18 Abs React Lymphs (Man) 0.0 K/mm3 03/28/22 19:18 Monocytes # (Manual) 0.1 K/mm3 (0.0-0.8) 03/28/22 19:18 Eosinophils # (Manual) 0.0 K/mm3 (0.0-0.4) 03/28/22 19:18 Basophils # (Manual) 0.0 K/mm3 (0.0-0.1) 03/28/22 19:18 Metamyelocytes # 0.0 K/mm3 03/28/22 19:18 Myelocytes # 0.0 K/mm3 03/28/22 19:18 Promyelocytes # 0.0 K/mm3 03/28/22 19:18 Blast Cells # 0.0 K/mm3 03/28/22 19:18 WBC Morphology Not Reportable 03/28/22 19:18 Hypersegmented Neuts Not Reportable 03/28/22 19:18 Hyposegmented Neuts Not Reportable 03/28/22 19:18 Hypogranular Neuts Not Reportable 03/28/22 19:18 Smudge Cells Not Reportable 03/28/22 19:18 Toxic Granulation Not Reportable 03/28/22 19:18 Toxic Vacuolation Not Reportable 03/28/22 19:18 Dohle Bodies Not Reportable 03/28/22 19:18 Pelger-Huet Anomaly Not Reportable 03/28/22 19:18 Davian Rods Not Reportable 03/28/22 19:18 Platelet Estimate Consistent w auto 03/28/22 19:18 Clumped Platelets Not Reportable 03/28/22 19:18 Plt Clumps, EDTA Not Reportable 03/28/22 19:18 Large Platelets Not Reportable 03/28/22 19:18 Giant Platelets Not Reportable 03/28/22 19:18 Platelet Satelliting Not Reportable 03/28/22 19:18 Plt Morphology Comment Not Reportable 03/28/22 19:18 RBC Morphology Not Reportable 03/28/22 19:18 Dimorphic RBCs Not Reportable 03/28/22 19:18 Polychromasia Not Reportable 03/28/22 19:18 Hypochromasia Not Reportable 03/28/22 19:18 Poikilocytosis Not Reportable 03/28/22 19:18 Anisocytosis 1+ 03/28/22 19:18 Microcytosis Not Reportable 03/28/22 19:18 Macrocytosis Not Reportable 03/28/22 19:18 Spherocytes Not Reportable 03/28/22 19:18 Pappenheimer Bodies Not Reportable 03/28/22 19:18 Sickle Cells Not Reportable 03/28/22 19:18 Target Cells Not Reportable 03/28/22 19:18 Tear Drop Cells Rare 03/28/22 19:18 Ovalocytes Not Reportable 03/28/22 19:18 Helmet Cells Not Reportable 03/28/22 19:18 [place] Bodies Not Reportable 03/28/22 19:18 Geddes Rings Not Reportable 03/28/22 19:18 [place] Cells Not Reportable 03/28/22 19:18 Bite Cells Not Reportable 03/28/22 19:18 Crenated Cell Not Reportable 03/28/22 19:18 Elliptocytes Not Reportable 03/28/22 19:18 Acanthocytes (Spur) Not Reportable 03/28/22 19:18 Rouleaux Not Reportable 03/28/22 19:18 Hemoglobin C Crystals Not Reportable 03/28/22 19:18 Schistocytes Not Reportable 03/28/22 19:18 Malaria parasites Not Reportable 03/28/22 19:18 Jer Bodies Not Reportable 03/28/22 19:18 Hem Pathologist Commnt No 03/28/22 19:18 ABG pH 7.344 pH Units (7.350-7.450) L 03/30/22 04:04 ABG pCO2 52.8 mm Hg 03/30/22 04:04 ABG pO2 92.9 mm Hg (80.0-90.0) H 03/30/22 04:04 ABG HCO3 28.1 mmol/L (20.0-26.0) H 03/30/22 04:04 ABG O2 Saturation 97.0 % (95.0-99.0) 03/30/22 04:04 ABG O2 Content 17.5 (0.0-44) 03/30/22 04:04 ABG Base Excess 1.5 mmol/L (-2.0-3.0) 03/30/22 04:04 ABG Hemoglobin 13.0 gm/dl (12.0-16.0) 03/30/22 04:04 ABG Carboxyhemoglobin 1.5 % (0.0-5.0) 03/30/22 04:04 ABG Methemoglobin 0.4 % (0.0-1.5) 03/30/22 04:04 Oxyhemoglobin 95.1 % (95.0-99.0) 03/30/22 04:04 FiO2 28 % 03/30/22 04:04 Sodium 139 mmol/L (137-145) 03/31/22 04:32 Potassium 4.2 mmol/L (3.6-5.0) 03/31/22 04:32 Chloride 105.4 mmol/L (98-107) 03/31/22 04:32 Carbon Dioxide 27 mmol/L (22-30) 03/31/22 04:32 Anion Gap 11 mmol/L 03/31/22 04:32 BUN 11 mg/dL (7-17) 03/31/22 04:32 Creatinine 0.4 mg/dL (0.6-1.2) L 03/31/22 04:32 Estimated GFR > 60 ml/min 03/31/22 04:32 BUN/Creatinine Ratio 28 % 03/31/22 04:32 Glucose 140 mg/dL (65-100) H 03/31/22 04:32 POC Glucose 118 mg/dL (70-105) H 03/30/22 08:25 Calcium 8.9 mg/dL (8.4-10.2) 03/31/22 04:32 Total Bilirubin 0.30 mg/dL (0.1-1.2) 03/28/22 19:18 AST 36 units/L (5-40) 03/28/22 19:18 ALT 29 units/L (7-56) 03/28/22 19:18 Alkaline Phosphatase 85 units/L (35-129) 03/28/22 19:18 C-Reactive Protein 0.30 mg/dL (0.00-1.30) 03/30/22 04:34 NT-Pro-B Natriuret Pep 556.4 pg/mL (0-900) 03/28/22 19:18 Total Protein 6.9 g/dL (6.3-8.2) 03/28/22 19:18 Albumin 4.1 g/dL (3.9-5) 03/28/22 19:18 Albumin/Globulin Ratio 1.5 % 03/28/22 19:18 Procalcitonin < 0.05 ng/mL (<0.15) 03/30/22 04:34 Urine Color Yellow (Yellow) 03/29/22 18:10 Urine Turbidity Clear (Clear) 03/29/22 18:10 Urine pH 5.0 (5.0-7.0) 03/29/22 18:10 Ur Specific Joseph 1.021 (1.003-1.030) 03/29/22 18:10 Urine Protein <15 mg/dl mg/dL (Negative) 03/29/22 18:10 Urine Glucose (UA) Neg mg/dL (Negative) 03/29/22 18:10 Urine Ketones Neg mg/dL (Negative) 03/29/22 18:10 Urine Blood Neg (Negative) 03/29/22 18:10 Urine Nitrite Neg (Negative) 03/29/22 18:10 Urine Bilirubin Neg (Negative) 03/29/22 18:10 Urine Urobilinogen < 2.0 mg/dL (<2.0) 03/29/22 18:10 Ur Leukocyte Esterase Lg (Negative) 03/29/22 18:10 Urine WBC (Auto) 6.0 /HPF (0.0-6.0) 03/29/22 18:10 Urine RBC (Auto) 2.0 /HPF (0.0-6.0) 03/29/22 18:10 U Epithel Cells (Auto) 6.0 /HPF (0-13.0) 03/29/22 18:10 Urine Mucus Few /HPF 03/29/22 18:10 Salicylates < 0.3 mg/dL (2.8-20.0) L 03/28/22 19:18 Urine Opiates Screen Presumptive negative 03/29/22 18:10 Urine Methadone Screen Presumptive negative 03/29/22 18:10 Acetaminophen 5.0 ug/mL (10.0-30.0) L 03/28/22 19:18 Ur Barbiturates Screen Presumptive negative 03/29/22 18:10 Ur Phencyclidine Scrn Presumptive negative 03/29/22 18:10 Ur Amphetamines Screen Presumptive negative 03/29/22 18:10 U Benzodiazepines Scrn Presumptive negative 03/29/22 18:10 Urine Cocaine Screen Presumptive positive 03/29/22 18:10 U Marijuana (THC) Screen Presumptive positive 03/29/22 18:10 Drugs of Abuse Note Disclamer 03/29/22 18:10 Plasma/Serum Alcohol < 0.01 % (0-0.07) 03/28/22 19:18 Microbiology: Microbiology 03/28/22 23:19 Peripheral/Venous Blood Culture - Preliminary NO GROWTH AFTER 48 HOURS 03/28/22 22:35 Peripheral/Venous Blood Culture - Preliminary NO GROWTH AFTER 48 HOURS Landa/IV: Voiding Method Bedside Commode Active Medications - Current Medications Current Medications: Generic Name Dose Route Start Last Admin Trade Name Freq PRN Reason Stop Dose Admin Acetaminophen 650 mg 03/28/22 23:17 Acetaminophen 325 Mg Tab PO Q6H PRN Pain MILD(1-3)/Fever >100.5/BAÑUELOS Albuterol 2.5 mg 03/30/22 08:33 Albuterol 2.5 Mg/3 Ml Nebu IH Q4HRT PRN Shortness Of Breath Albuterol/Ipratropium 1 ampul 03/30/22 14:00 03/30/22 20:23 Ipratropium/Albuterol Sulfate 3 Ml Ampul.Neb IH 1 ampul TIDRT JAMES Administration Arformoterol Tartrate 15 mcg 03/30/22 20:00 03/30/22 20:23 Arformoterol 15 Mcg/2 Ml Nebu IH 15 mcg Q12HRT JAMES Administration Azithromycin 500 mg 03/30/22 22:00 03/30/22 22:08 Azithromycin 250 Mg Tab PO 04/01/22 22:01 500 mg Q24H JAMES Administration Protocol Budesonide 0.5 mg 03/30/22 20:00 03/30/22 20:23 Budesonide 0.5 Mg/2 Ml Nebu IH 0.5 mg Q12HRT JAMES Administration Clonidine HCl 0.1 mg 03/30/22 07:58 Clonidine 0.1 Mg Tab PO Q4H PRN Agitation Enoxaparin Sodium 40 mg 03/29/22 10:00 03/30/22 09:16 Enoxaparin 40 Mg/0.4 Ml Inj SUB-Q 40 mg QDAY@1000 JAMES Administration Protocol Famotidine 20 mg 03/31/22 10:00 Famotidine 20 Mg Tab PO DAILY JAMES Haloperidol Lactate 5 mg 03/30/22 15:10 Haloperidol Lactate 5 Mg/1 Ml Inj IM Q6H PRN Agitation Hydralazine HCl 5 mg 03/30/22 00:32 03/30/22 09:32 Hydralazine 20 Mg/1 Ml Inj IV 5 mg Q30MIN PRN Administration SBP >/=160; DBP >/=100 Ceftriaxone Sodium 2 gm in 100 mls @ 200 mls/hr 03/29/22 10:00 03/30/22 09:15 Rocephin/Ns 2 Gm/100 Ml IV 04/01/22 10:29 200 mls/hr Q24H JAMES Administration Protocol Valproate Sodium 500 mg/ 105 mls @ 100 mls/hr 03/30/22 16:00 03/30/22 22:08 Sodium Chloride IV 100 mls/hr Q12HR JAMES Administration Lorazepam 2 mg 03/28/22 23:17 03/30/22 05:03 Lorazepam 2 Mg/Ml Vial IV 2 mg Q1H PRN Administration CIWA-Ar 8-15 Lorazepam 4 mg 03/28/22 23:17 03/29/22 20:13 Lorazepam 2 Mg/Ml Vial IV 4 mg Q1H PRN Administration CIWA-Ar 16-25 Lorazepam 4 mg 03/28/22 23:17 03/29/22 08:45 Lorazepam 2 Mg/Ml Vial IV 4 mg Q15MIN PRN Administration CIWA-Ar >25 Magnesium Hydroxide 30 ml 03/28/22 23:17 Magnesium Hydroxide (Mom) Oral Liqd Udc PO Q4H PRN Constipation Methylprednisolone Sodium Succinate 60 mg 03/30/22 22:00 03/31/22 05:59 Methylprednisolone Sod Succinate 125 Mg/2 Ml Inj IV 60 mg Q8HR JAMES Administration Montelukast Sodium 10 mg 03/30/22 22:00 03/30/22 22:08 Montelukast 10 Mg Tab PO 10 mg QHS JAMES Administration Morphine Sulfate 2 mg 03/28/22 23:17 Morphine 2 Mg/1 Ml Inj IV Q4H PRN Pain, Moderate (4-6) Morphine Sulfate 4 mg 03/28/22 23:17 Morphine 4 Mg/1 Ml Inj IV Q4H PRN Pain , Severe (7-10) Ondansetron HCl 4 mg 03/28/22 23:17 Ondansetron 4 Mg/2 Ml Inj IV Q8H PRN Nausea And Vomiting Sodium Chloride 10 ml 03/29/22 10:00 03/30/22 22:09 Sodium Chloride 0.9% 10 Ml Flush Syringe IV 10 ml BID JAMES Administration Sodium Chloride 10 ml 03/28/22 23:17 Sodium Chloride 0.9% 10 Ml Flush Syringe IV PRN PRN LINE FLUSH Nutrition/Malnutrition Assess - Dietary Evaluation Nutrition/Malnutrition Findings: Nutrition Notes Start: 03/29/22 16:08 Freq: Status: Active Protocol: Document 03/29/22 16:08 KAILYN (Rec: 03/29/22 16:32 [email or web address] [id number]) Nutrition Notes Need for Assessment generated 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 Current Diet Regular Diet (since B 03/29). Labs/Tests 03/29: Crea 0.5, Glu 123. Pertinent Medications 03/29: Thiamine 100 mg, Folic acid 1 mg, Multivitamins, Minerals 10 ml, others nutritionally unremarkable. Height 5 ft 5 in Weight 53.2 kg [place] Body Weight (kg) 56.81 BMI 19.5 Intake Prior to Admission Good Weight change and time frame Pt states being unsure if loss body weight INK BLENDER. Weight Status Appropriate Subjective/Other Information RD consult for risk of malnutrition and nutrition education assessments. No reports available on Pt's PO intake of meals at the time , will assess at F/U. Pt is on Nasal Cannula, O2 saturation @ 98%, according to Physical Assessment History notes. Pt has missing teeth, according to Physical Assessment History notes. Pt shows no signs of concern for risk of malnutrition atthe time, according to Physical Assessment History notes. Pt still in critical condition , not a candidate for Nutrition Education at the time, will assess feasibility on F/U. Percent of energy/protein needs met: Prescribed Regular Diet provides for energy/protein needs (2,289 Kcal/89 g) during LOS. Burn Absent Trauma Absent GI Symptoms None Food Allergy No Skin Integrity/Comment Assessment WNL. Minimum of two criteria No #1 Nutrition Diagnosis No nutrition diagnosis at this time Comments: Skip assess Pt's PO intake of meals and feasibility for nutrition education at F/U. Is patient on ventilator? No Is Patient Ambulatory and/or Out of Bed Yes REE-([facility]-ambulatory/OOB) [ 1472.744 NUTR.[id number]] Kcal/Kg value to use for calculation 29 Approximate Energy Requirements Using 1543 kcal/Kg Calculation Used for Recommendations Kcal/kg Additional Notes Protein: 0.8-1 g/Kg IBW; 46-57 g/day. Fluids: 1 ml/Kcal, or as per MD. Nutrition Intervention Change Diet Order: Continue Regular Diet, as tolerated. Follow-Up By: 04/05/22 Additional Comments Nutrition education will be provided on F/U, if feasible. Continue monitoring food tolerance, %PO intake of meals , and BM.
--- NOTE | 2022-03-30 15:06 | Consultation ---
History of Present Illness - Reason for Consult Consult date: 03/30/22 Reason for consult: agitation - History of Present Psychiatric Illness HPI: 56-year-old female with a history of asthma, COPD, current chronic tobacco abuse at 1 pack/day of cigarette smoking, cocaine abuse, alcohol abuse (patient states last time she smoked crack cocaine was today and last time she drank alcohol was 2 shots of alcohol earlier today" brought in by EMS for hypoxemia a nd shortness of breath. See patient's electronic health record concerning the nurses documented discussion with EMS concerning the medications administered to the patient prior to arrival. Patient denies any complaints at this time but does states she has been "just feeling badly with this cough and asthma attack over the past few days." Pain 0 out of 10. The patient was seen today. She is awake but drowsy. She is restraints. She is oriented x 2. She say she came to the hospital for shortness of breath. The patient says she's feeling "so-so" when asked. The patient says she took too much albuterol. She denies SI/HI or hallucinations of any kind. She denies any illicit drug use, but she is positive for cocaine. The nurse caring for the patient today states the patient has been kicking, trying to get out of bed and agitated. PAST PSYCHIATRIC HISTORY: Unable to obtain PAST MEDICAL HISTORY: None reported Family Psychiatric History: None reported SOCIAL HISTORY Unable to obtain REVIEW OF SYSTEMS Unable to obtain MENTAL STATUS EXAMINATION General Appearance: Dressed appropriately, drowsy Behavior: calm and cooperative Mood: Depressed Affect and affective range: congruent with mood Thought Process: circumstantial Thought content: None Speech: Normal tone and pace Suicidal Ideation: Denies Homicidal Ideation: Denies Hallucinations: Denies Delusions: None elicited Insight and Judgment: Limited insight and judgment Memory: Limited Attention: attentive Orientation: Alert, oriented Assessment Mood Disorder, Unspecified Cocaine Use Disorder Treatment Plan Valproic Acid 500mg IV q12h Haldol 5mg IM q6h prn agitation Agree with Lorazepam Sitter: Defer to primary Disposition: Do not recommend acute psychiatric inpatient treatment Will follow for med management. Thanks Case staffed with Dr. Pena Medications and Allergies Allergies Allergy/AdvReac Type Severity Reaction Status Date / Time No Known Allergies Allergy Verified 08/20/21 22:43 Home Medications Medication Instructions Recorded Confirmed Last Taken Type Albuterol Sulfate [Proventil Hfa] 2 puff IH Q4HR PRN #1 hfa.aer.ad 08/21/21 Unknown Rx Furosemide [Lasix] 20 mg PO QDAY #5 tablet 08/21/21 Unknown Rx predniSONE [Deltasone] 50 mg PO QDAY #5 tab 08/21/21 Unknown Rx Active Meds: Active Medications Acetaminophen (Acetaminophen 325 Mg Tab) 650 mg PO Q6H PRN PRN Reason: Pain MILD(1-3)/Fever >100.5/BAÑUELOS Albuterol (Albuterol 2.5 Mg/3 Ml Nebu) 2.5 mg IH Q4HRT PRN PRN Reason: Shortness Of Breath Albuterol/Ipratropium (Ipratropium/Albuterol Sulfate 3 Ml Ampul.Neb) 1 ampul IH TIDRT [facility] Last Admin: 03/30/22 14:42 Dose: 1 ampul Arformoterol Tartrate (Arformoterol 15 Mcg/2 Ml Nebu) 15 mcg IH Q12HRT JAMES Azithromycin (Azithromycin 250 Mg Tab) 500 mg PO Q24H [facility]; Protocol Stop: 04/01/22 22:01 Budesonide (Budesonide 0.5 Mg/2 Ml Nebu) 0.5 mg IH Q12HRT JAMES Clonidine HCl (Clonidine 0.1 Mg Tab) 0.1 mg PO Q4H PRN PRN Reason: Agitation Enoxaparin Sodium (Enoxaparin 40 Mg/0.4 Ml Inj) 40 mg SUB-Q QDAY@1000 JAMES; Protocol Last Admin: 03/30/22 09:16 Dose: 40 mg Famotidine (Famotidine 20 Mg Tab) 20 mg PO DAILY [facility] Hydralazine HCl (Hydralazine 20 Mg/1 Ml Inj) 5 mg IV Q30MIN PRN PRN Reason: SBP >/=160; DBP >/=100 Last Admin: 03/30/22 09:32 Dose: 5 mg Ceftriaxone Sodium (Rocephin/Ns 2 Gm/100 Ml) 2 gm in 100 mls @ 200 mls/hr IV Q24H [facility]; Protocol Stop: 04/01/22 10:29 Last Admin: 03/30/22 09:15 Dose: 200 mls/hr Thiamine HCl 100 mg/ Folic Acid 1 mg/ Multivitamins/Minerals 10 ml/ Dextrose/Sodium Chloride 1,011.2 mls @ 100 mls/hr IV QDAY [facility] Stop: 03/30/22 20:07 Last Admin: 03/30/22 09:15 Dose: 100 mls/hr Lorazepam (Lorazepam 2 Mg/Ml Vial) 2 mg IV Q1H PRN PRN Reason: CIWA-Ar 8-15 Last Admin: 03/30/22 05:03 Dose: 2 mg Lorazepam (Lorazepam 2 Mg/Ml Vial) 4 mg IV Q1H PRN PRN Reason: CIWA-Ar 16-25 Last Admin: 03/29/22 20:13 Dose: 4 mg Lorazepam (Lorazepam 2 Mg/Ml Vial) 4 mg IV Q15MIN PRN PRN Reason: CIWA-Ar >25 Last Admin: 03/29/22 08:45 Dose: 4 mg Magnesium Hydroxide (Magnesium Hydroxide (Mom) Oral Liqd Udc) 30 ml PO Q4H PRN PRN Reason: Constipation Methylprednisolone Sodium Succinate (Methylprednisolone Sod Succinate 40 Mg/1 Ml Inj) 40 mg IV Q8HR [facility] Last Admin: 03/30/22 05:04 Dose: 40 mg Morphine Sulfate (Morphine 2 Mg/1 Ml Inj) 2 mg IV Q4H PRN PRN Reason: Pain, Moderate (4-6) Morphine Sulfate (Morphine 4 Mg/1 Ml Inj) 4 mg IV Q4H PRN PRN Reason: Pain , Severe (7-10) Ondansetron HCl (Ondansetron 4 Mg/2 Ml Inj) 4 mg IV Q8H PRN PRN Reason: Nausea And Vomiting Sodium Chloride (Sodium Chloride 0.9% 10 Ml Flush Syringe) 10 ml IV BID [facility] Last Admin: 03/30/22 09:15 Dose: 10 ml Sodium Chloride (Sodium Chloride 0.9% 10 Ml Flush Syringe) 10 ml IV PRN PRN PRN Reason: LINE FLUSH Mental Status Exam - Vital signs Last Vital Signs Temp 98.0 F 03/30/22 12:00 Pulse 108 H 03/30/22 14:42 Resp 22 03/30/22 14:42 BP 137/95 03/30/22 14:00 Pulse Ox 98 03/30/22 14:00 Results Result Diagrams: 03/30/22 04:34 03/30/22 04:34 Abnormal lab results 03/29/22 03/30/22 03/30/22 Range/Units 16:43 04:04 04:34 RDW 21.4 H (13.2-15.2) % ABG pH 7.344 L (7.350-7.450) pH Units ABG pO2 92.9 H (80.0-90.0) mm Hg ABG HCO3 28.1 H (20.0-26.0) mmol/L Creatinine (0.6-1.2) mg/dL POC Glucose 142 H (70-105) mg/dL 03/30/22 03/30/22 Range/Units 04:34 08:25 RDW (13.2-15.2) % ABG pH (7.350-7.450) pH Units ABG pO2 (80.0-90.0) mm Hg ABG HCO3 (20.0-26.0) mmol/L Creatinine 0.5 L (0.6-1.2) mg/dL POC Glucose 118 H (70-105) mg/dL All other labs normal.
[2022-03-30] MEDS ORDERED: HALOPERIDOL LACTATE 5 MG/1 ML INJ IM PRN (15:10)
[2022-03-30] MEDS ORDERED: methylPREDNISolone Sod Succinate 40 MG/1 ML INJ IV SCH (16:00)
[2022-03-30] MEDS: VALPROATE SODIUM 500 MG in SODIUM CHLORIDE 0.9% 100 ML IV SCH ×2 (17:22→22:08)
[2022-03-30] MEDS: BUDESONIDE 0.5 MG/2 ML NEBU IH SCH (20:23)
[2022-03-30] MEDS: ARFORMOTEROL 15 MCG/2 ML NEBU IH SCH (20:23)
[2022-03-30] MEDS: MONTELUKAST 10 MG TAB PO SCH (22:08)
[2022-03-30] MEDS: AZITHROMYCIN 250 MG TAB PO SCH (22:08)
[2022-03-30] MEDS: methylPREDNISolone Sod Succinate 125 MG/2 ML INJ IV SCH (22:08)
[2022-03-31 05:30] LABS: Blood Urea Nitrogen 11 mg/dL (7-17); Calcium 8.9 mg/dL (8.4-10.2); Hemolysis Index 8
[2022-03-31 05:35] LABS: BUN/Creatinine Ratio 28
[2022-03-31] MEDS: methylPREDNISolone Sod Succinate 125 MG/2 ML INJ IV SCH ×3 (05:59→21:15)
[2022-03-31] MEDS: BUDESONIDE 0.5 MG/2 ML NEBU IH SCH ×2 (08:06→20:53)
[2022-03-31] MEDS: IPRATROPIUM/ALBUTEROL SULFATE 3 ML AMPUL.NEB IH SCH ×3 (08:06→20:53)
[2022-03-31] MEDS: ARFORMOTEROL 15 MCG/2 ML NEBU IH SCH ×2 (08:06→20:53)
[2022-03-31] MEDS: VALPROATE SODIUM 500 MG in SODIUM CHLORIDE 0.9% 100 ML IV SCH ×2 (09:47→21:15)
[2022-03-31] MEDS: FAMOTIDINE 20 MG TAB PO SCH (09:48)
[2022-03-31] MEDS: cefTRIAXone/NS 2 GM/100 ML 2 GM/100 ML BAG IV SCH (09:48)
[2022-03-31] MEDS: ENOXAPARIN 40 MG/0.4 ML INJ SUB-Q SCH (09:48)
--- NOTE | 2022-03-31 12:19 | Progress Note ---
Subjective - Reason for Consult Consult date: 03/31/22 Reason for consult: agitation, substance abuse - Chief Complaint Chief complaint: The patient was seen today. She is sleeping, but easily arouses. She is calm and cooperative. The patient says she feels "so so." She says she's a little tired. She denies SI/HI or hallucinations. The patient says she's been calm and cooperative. I ask her about pulling lines out the other day, she replies "who told you that. I didn't do that." Spoke with the nurse caring for the patient today. She says the patient has been much better and has not had any behavioral issues since starting the meds. Will continue to follow the patient for med management during her stay in the hospital. REVIEW OF SYSTEMS Constitutional: Negative for weight loss ENT: Negative for stridor Respiratory: Negative for cough or hemoptysis All other systems reviewed and are negative MENTAL STATUS EXAMINATION General Appearance: Dressed appropriately, drowsy Behavior: calm and cooperative Mood: "so-so" Affect and affective range: congruent with mood Thought Process: circumstantial Thought content: None Speech: Normal tone and pace Suicidal Ideation: Denies Homicidal Ideation: Denies Hallucinations: Denies Delusions: None elicited Insight and Judgment: Limited insight and judgment Memory: Limited Attention: attentive Orientation: Alert, oriented Assessment Mood Disorder, Unspecified Cocaine Use Disorder Treatment Plan Valproic Acid 500mg IV q12h Haldol 5mg IM q6h prn agitation Agree with Lorazepam Sitter: Defer to primary Disposition: Do not recommend acute psychiatric inpatient treatment Will follow for med management. Thanks. The phlebotomist to give the patient all outpatient psych resources including drug rehab. The patient to abstain from all illicit drug use. Case staffed with Dr. Pena Mental Status Exam - Vital signs Last Vital Signs Temp 97.8 F 03/31/22 10:00 Pulse 96 H 03/31/22 12:00 Resp 32 H 03/31/22 12:00 BP 153/87 03/31/22 12:00 Pulse Ox 93 03/31/22 12:00
--- NOTE | 2022-03-31 12:21 | Progress Note ---
<FARIBA CELAYA - Last Filed: 03/31/22 17:32> Assessment and Plan Assessment and plan: This is a 56-year-old female with known history of COPD, HTN, chronic Tobacco, cocaine, and alcohol abuse admitted for acute hypoxic and hypercapneic respiratory failure Hospital Course to Date: 03/29: Agitated and combative this am required four point restraints and IV ativan per CIAR protocol. Continue CIAR protocol and mental health consulted for further recommendations. Patient is off Bipap, now stable on 4L NC. This am ABG noted. Continue IV steroids and bronchodilators, wean O2 supplementation as tolerated for SPO2 goal above 90%. Pulmonary also on consult. 03/30: Remains lethargic and confused. On 2L NC, ABG improved, wheezing appreciated throughout her lungs. Patient tolerated Bipap overnight, continue IV Steroids and bronchodilators and wean O2 supplementation as tolerated. Patient remains afebrile and leukocytosis resolved, procal normal. Continue empiric IV Abx X3days for CAP. 03/31: Mentation continue to improve. Patient is still drowsy but awake, following simple commands. Psych is following, appreciate recommendation. Patient remains stable on 2L NC, wheezing improved. Continue IV Steroids and bronchodilators and wean O2 supplementation as tolerated. Patient is stable for transfer to the floor Assessment and Plan #Acute Hypoxic and Hypercapnic Respiratory Failure 2/ #COPD (Chronic Obstructive Pulmonary Disease) #Community Acquired Pneumonia(CAP) #Tobacco Dependence - Presented with respiratory acidosis, hypercapnea and hypoxia requiring continuous Bipap - Chest x-ray of reveals atelectasis versus developing infiltrate in the right lung base - Stable on 2L NC SPO2 above 95% - Repeat ABG noted - Continue PRN Bronchodilator and IV steroids - Continue empiric IV Abx - Continue O2 supplementation and wean as tolerated - Continue SPO2 monitoring for SPO2 goal above 90% - Pulmonary is also following - Smoking Cessation education and resources when coherent and mentally appropriate #Acute Enccephalopathy #Polysubstances Abuse - most likely due to cocaine and alcohol abuse - Per patient she smoked crack cocaine and also drank 2 shots of alcohol earlier on day of admit - UDS +cocaine and THC - Episodes of agitation/combative this am, s/p IV ativan per CIWA - Continue CIAR protocol - Frequent reorientation - Fall precautions - Mental Health consult, appreciate recommendations #Community Acquired Pneumonia(CAP) #Leukocytosis-resolved - Chest x-ray of reveals atelectasis versus developing infiltrate in the right lung base - Now stable on 2L NC - UA/urine and blood cultures pending - Patient remains afebrile and normotensive, leukocytosis resolved - procal and CRP wnr - Continue empiric IV Abx- Rocephin and [id number] - Continue to F/U on cultures - Daily CBC monitor - Consider ID consult if febrile or/and if leukocytosis persist #Hypertension - BP is stable - Continue blood pressure monitor per protocol - Maintain MAP above 65 and SBP less than 160 - Resume home meds once list is available #GI/DVT Prophylaxis - PPI- Pepcid - Lovenox SubQ - SCDs to bilateral lower extremities while in bed The high probability of a clinically significant, sudden or life threatening deterioration of the [multiple] system(s) required my full and direct attention, intervention and personal management. The aggregate critical care time was [30] minutes. This time is in addition to time spent performing reported procedures but includes the following: [x] Data Review and interpretation [x] Patient assessment and monitoring of vital signs [x] Documentation [x] Medication orders and management Disposition Plan: Transfer to the floor Total Time Spent with Patient (Minutes): 30 History Interval history: Patient seen and examined at the bedside. Mentation continue to improved, still drowsy but awake eating breakfast this am, off restraints this morning. Remains stable 2 L NC. THERESA overnight Hospitalist Physical - Physical exam Narrative exam: General appearance: Present: no acute distress, cachectic - EENT Eyes: Present: PERRL ENT: hearing intact - Neck Neck: Present: normal ROM - Respiratory Respiratory effort: normal Respiratory: bilateral: wheezing - Cardiovascular Rhythm: regular Heart Sounds: Present: S1 & S2 - Extremities Extremities: no ischemia, pulses intact, pulses symmetrical Peripheral Pulses: within normal limits - Abdominal General gastrointestinal: soft, non-distended, normal bowel sounds - Integumentary Integumentary: Present: warm, dry - Psychiatric Psychiatric: cooperative, other (Drowsy but awake, still confused) - Neurologic Neurologic: moves all extremities, other (Drowsy but awake, still confused ) - Allied Health Allied health notes reviewed: nursing, case management - Constitutional Vitals: Temp Pulse Resp BP Pulse Ox 97.8 F 96 H 32 H 153/87 93 03/31/22 10:00 03/31/22 12:00 03/31/22 12:00 03/31/22 12:00 03/31/22 12:00 Results - Labs CBC & Chem 7: 03/30/22 04:34 03/31/22 04:32 Labs: Laboratory Last Values WBC 7.0 K/mm3 (4.5-11.0) 03/30/22 04:34 RBC 4.62 M/mm3 (3.65-5.03) 03/30/22 04:34 Hgb 12.8 gm/dl (10.1-14.3) 03/30/22 04:34 Hct 40.8 % (30.3-42.9) 03/30/22 04:34 MCV 88 fl (79-97) 03/30/22 04:34 MCH 28 pg (28-32) 03/30/22 04:34 MCHC 32 % (30-34) 03/30/22 04:34 RDW 21.4 % (13.2-15.2) H 03/30/22 04:34 Plt Count 276 K/mm3 (140-440) 03/30/22 04:34 Add Manual Diff Complete 03/28/22 19:18 Total Counted 100 03/28/22 19:18 Seg Neutrophils % Residential Mortgage Underwriter 03/28/22 19:18 Seg Neuts % (Manual) 93.0 % (40.0-70.0) H 03/28/22 19:18 Band Neutrophils % 0 % 03/28/22 19:18 Lymphocytes % (Manual) 6.0 % (13.4-35.0) L 03/28/22 19:18 Reactive Lymphs % (Man) 0 % 03/28/22 19:18 Monocytes % (Manual) 1.0 % (0.0-7.3) 03/28/22 19:18 Eosinophils % (Manual) 0 % (0.0-4.3) 03/28/22 19:18 Basophils % (Manual) 0 % (0.0-1.8) 03/28/22 19:18 Metamyelocytes % 0 % 03/28/22 19:18 Myelocytes % 0 % 03/28/22 19:18 Promyelocytes % 0 % 03/28/22 19:18 Blast Cells % 0 % 03/28/22 19:18 Nucleated RBC % Not Reportable 03/28/22 19:18 Seg Neutrophils # Man 11.5 K/mm3 (1.8-7.7) H 03/28/22 19:18 Band Neutrophils # 0.0 K/mm3 03/28/22 19:18 Lymphocytes # (Manual) 0.7 K/mm3 (1.2-5.4) L 03/28/22 19:18 Abs React Lymphs (Man) 0.0 K/mm3 03/28/22 19:18 Monocytes # (Manual) 0.1 K/mm3 (0.0-0.8) 03/28/22 19:18 Eosinophils # (Manual) 0.0 K/mm3 (0.0-0.4) 03/28/22 19:18 Basophils # (Manual) 0.0 K/mm3 (0.0-0.1) 03/28/22 19:18 Metamyelocytes # 0.0 K/mm3 03/28/22 19:18 Myelocytes # 0.0 K/mm3 03/28/22 19:18 Promyelocytes # 0.0 K/mm3 03/28/22 19:18 Blast Cells # 0.0 K/mm3 03/28/22 19:18 WBC Morphology Not Reportable 03/28/22 19:18 Hypersegmented Neuts Not Reportable 03/28/22 19:18 Hyposegmented Neuts Not Reportable 03/28/22 19:18 Hypogranular Neuts Not Reportable 03/28/22 19:18 Smudge Cells Not Reportable 03/28/22 19:18 Toxic Granulation Not Reportable 03/28/22 19:18 Toxic Vacuolation Not Reportable 03/28/22 19:18 Dohle Bodies Not Reportable 03/28/22 19:18 Pelger-Huet Anomaly Not Reportable 03/28/22 19:18 Davian Rods Not Reportable 03/28/22 19:18 Platelet Estimate Consistent w auto 03/28/22 19:18 Clumped Platelets Not Reportable 03/28/22 19:18 Plt Clumps, EDTA Not Reportable 03/28/22 19:18 Large Platelets Not Reportable 03/28/22 19:18 Giant Platelets Not Reportable 03/28/22 19:18 Platelet Satelliting Not Reportable 03/28/22 19:18 Plt Morphology Comment Not Reportable 03/28/22 19:18 RBC Morphology Not Reportable 03/28/22 19:18 Dimorphic RBCs Not Reportable 03/28/22 19:18 Polychromasia Not Reportable 03/28/22 19:18 Hypochromasia Not Reportable 03/28/22 19:18 Poikilocytosis Not Reportable 03/28/22 19:18 Anisocytosis 1+ 03/28/22 19:18 Microcytosis Not Reportable 03/28/22 19:18 Macrocytosis Not Reportable 03/28/22 19:18 Spherocytes Not Reportable 03/28/22 19:18 Pappenheimer Bodies Not Reportable 03/28/22 19:18 Sickle Cells Not Reportable 03/28/22 19:18 Target Cells Not Reportable 03/28/22 19:18 Tear Drop Cells Rare 03/28/22 19:18 Ovalocytes Not Reportable 03/28/22 19:18 Helmet Cells Not Reportable 03/28/22 19:18 [place] Bodies Not Reportable 03/28/22 19:18 [place] Rings Not Reportable 03/28/22 19:18 Yazmin Cells Not Reportable 03/28/22 19:18 Bite Cells Not Reportable 03/28/22 19:18 Crenated Cell Not Reportable 03/28/22 19:18 Elliptocytes Not Reportable 03/28/22 19:18 Acanthocytes (Spur) Not Reportable 03/28/22 19:18 Rouleaux Not Reportable 03/28/22 19:18 Hemoglobin C Crystals Not Reportable 03/28/22 19:18 Schistocytes Not Reportable 03/28/22 19:18 Malaria parasites Not Reportable 03/28/22 19:18 Jer Bodies Not Reportable 03/28/22 19:18 Hem Pathologist Commnt No 03/28/22 19:18 ABG pH 7.344 pH Units (7.350-7.450) L 03/30/22 04:04 ABG pCO2 52.8 mm Hg 03/30/22 04:04 ABG pO2 92.9 mm Hg (80.0-90.0) H 03/30/22 04:04 ABG HCO3 28.1 mmol/L (20.0-26.0) H 03/30/22 04:04 ABG O2 Saturation 97.0 % (95.0-99.0) 03/30/22 04:04 ABG O2 Content 17.5 (0.0-44) 03/30/22 04:04 ABG Base Excess 1.5 mmol/L (-2.0-3.0) 03/30/22 04:04 ABG Hemoglobin 13.0 gm/dl (12.0-16.0) 03/30/22 04:04 ABG Carboxyhemoglobin 1.5 % (0.0-5.0) 03/30/22 04:04 ABG Methemoglobin 0.4 % (0.0-1.5) 03/30/22 04:04 Oxyhemoglobin 95.1 % (95.0-99.0) 03/30/22 04:04 FiO2 28 % 03/30/22 04:04 Sodium 139 mmol/L (137-145) 03/31/22 04:32 Potassium 4.2 mmol/L (3.6-5.0) 03/31/22 04:32 Chloride 105.4 mmol/L (98-107) 03/31/22 04:32 Carbon Dioxide 27 mmol/L (22-30) 03/31/22 04:32 Anion Gap 11 mmol/L 03/31/22 04:32 BUN 11 mg/dL (7-17) 03/31/22 04:32 Creatinine 0.4 mg/dL (0.6-1.2) L 03/31/22 04:32 Estimated GFR > 60 ml/min 03/31/22 04:32 BUN/Creatinine Ratio 28 % 03/31/22 04:32 Glucose 140 mg/dL (65-100) H 03/31/22 04:32 POC Glucose 118 mg/dL (70-105) H 03/30/22 08:25 Calcium 8.9 mg/dL (8.4-10.2) 03/31/22 04:32 Total Bilirubin 0.30 mg/dL (0.1-1.2) 03/28/22 19:18 AST 36 units/L (5-40) 03/28/22 19:18 ALT 29 units/L (7-56) 03/28/22 19:18 Alkaline Phosphatase 85 units/L (35-129) 03/28/22 19:18 C-Reactive Protein 0.30 mg/dL (0.00-1.30) 03/30/22 04:34 NT-Pro-B Natriuret Pep 556.4 pg/mL (0-900) 03/28/22 19:18 Total Protein 6.9 g/dL (6.3-8.2) 03/28/22 19:18 Albumin 4.1 g/dL (3.9-5) 03/28/22 19:18 Albumin/Globulin Ratio 1.5 % 03/28/22 19:18 Procalcitonin < 0.05 ng/mL (<0.15) 03/30/22 04:34 Urine Color Yellow (Yellow) 03/29/22 18:10 Urine Turbidity Clear (Clear) 03/29/22 18:10 Urine pH 5.0 (5.0-7.0) 03/29/22 18:10 Ur Specific [place] 1.021 (1.003-1.030) 03/29/22 18:10 Urine Protein <15 mg/dl mg/dL (Negative) 03/29/22 18:10 Urine Glucose (UA) Neg mg/dL (Negative) 03/29/22 18:10 Urine Ketones Neg mg/dL (Negative) 03/29/22 18:10 Urine Blood Neg (Negative) 03/29/22 18:10 Urine Nitrite Neg (Negative) 03/29/22 18:10 Urine Bilirubin Neg (Negative) 03/29/22 18:10 Urine Urobilinogen < 2.0 mg/dL (<2.0) 03/29/22 18:10 Ur Leukocyte Esterase Lg (Negative) 03/29/22 18:10 Urine WBC (Auto) 6.0 /HPF (0.0-6.0) 03/29/22 18:10 Urine RBC (Auto) 2.0 /HPF (0.0-6.0) 03/29/22 18:10 U Epithel Cells (Auto) 6.0 /HPF (0-13.0) 03/29/22 18:10 Urine Mucus Few /HPF 03/29/22 18:10 Salicylates < 0.3 mg/dL (2.8-20.0) L 03/28/22 19:18 Urine Opiates Screen Presumptive negative 03/29/22 18:10 Urine Methadone Screen Presumptive negative 03/29/22 18:10 Acetaminophen 5.0 ug/mL (10.0-30.0) L 03/28/22 19:18 Ur Barbiturates Screen Presumptive negative 03/29/22 18:10 Ur Phencyclidine Scrn Presumptive negative 03/29/22 18:10 Ur Amphetamines Screen Presumptive negative 03/29/22 18:10 U Benzodiazepines Scrn Presumptive negative 03/29/22 18:10 Urine Cocaine Screen Presumptive positive 03/29/22 18:10 U Marijuana (THC) Screen Presumptive positive 03/29/22 18:10 Drugs of Abuse Note Disclamer 03/29/22 18:10 Plasma/Serum Alcohol < 0.01 % (0-0.07) 03/28/22 19:18 Microbiology: Microbiology 03/29/22 Unknown Urine,Clean Catch Urine Culture - Preliminary 03/28/22 23:19 Peripheral/Venous Blood Culture - Preliminary NO GROWTH AFTER 48 HOURS 03/28/22 22:35 Peripheral/Venous Blood Culture - Preliminary NO GROWTH AFTER 48 HOURS Landa/IV: Voiding Method Bedside Commode Active Medications - Current Medications Current Medications: Generic Name Dose Route Start Last Admin Trade Name Freq PRN Reason Stop Dose Admin Acetaminophen 650 mg 03/28/22 23:17 Acetaminophen 325 Mg Tab PO Q6H PRN Pain MILD(1-3)/Fever >100.5/BAÑUELOS Albuterol 2.5 mg 03/30/22 08:33 Albuterol 2.5 Mg/3 Ml Nebu IH Q4HRT PRN Shortness Of Breath Albuterol/Ipratropium 1 ampul 03/30/22 14:00 03/31/22 08:06 Ipratropium/Albuterol Sulfate 3 Ml Ampul.Neb IH 1 ampul TIDRT JAMES Administration Arformoterol Tartrate 15 mcg 03/30/22 20:00 03/31/22 08:06 Arformoterol 15 Mcg/2 Ml Nebu IH 15 mcg Q12HRT JAMES Administration Azithromycin 500 mg 03/30/22 22:00 03/30/22 22:08 Azithromycin 250 Mg Tab PO 04/01/22 22:01 500 mg Q24H JAMES Administration Protocol Budesonide 0.5 mg 03/30/22 20:00 03/31/22 08:06 Budesonide 0.5 Mg/2 Ml Nebu IH 0.5 mg Q12HRT JAMES Administration Clonidine HCl 0.1 mg 03/30/22 07:58 Clonidine 0.1 Mg Tab PO Q4H PRN Agitation Enoxaparin Sodium 40 mg 03/29/22 10:00 03/31/22 09:48 Enoxaparin 40 Mg/0.4 Ml Inj SUB-Q 40 mg QDAY@1000 JAMES Administration Protocol Famotidine 20 mg 03/31/22 10:00 03/31/22 09:48 Famotidine 20 Mg Tab PO 20 mg DAILY JAMES Administration Haloperidol Lactate 5 mg 03/30/22 15:10 Haloperidol Lactate 5 Mg/1 Ml Inj IM Q6H PRN Agitation Hydralazine HCl 5 mg 03/30/22 00:32 03/30/22 09:32 Hydralazine 20 Mg/1 Ml Inj IV 5 mg Q30MIN PRN Administration SBP >/=160; DBP >/=100 Ceftriaxone Sodium 2 gm in 100 mls @ 200 mls/hr 03/29/22 10:00 03/31/22 09:48 Rocephin/Ns 2 Gm/100 Ml IV 04/01/22 10:29 200 mls/hr Q24H JAMES Administration Protocol Valproate Sodium 500 mg/ 105 mls @ 100 mls/hr 03/30/22 16:00 03/31/22 09:47 Sodium Chloride IV 100 mls/hr Q12HR JAMES Administration Lorazepam 2 mg 03/28/22 23:17 03/30/22 05:03 Lorazepam 2 Mg/Ml Vial IV 2 mg Q1H PRN Administration CIWA-Ar 8-15 Lorazepam 4 mg 03/28/22 23:17 03/29/22 20:13 Lorazepam 2 Mg/Ml Vial IV 4 mg Q1H PRN Administration CIWA-Ar 16-25 Lorazepam 4 mg 03/28/22 23:17 03/29/22 08:45 Lorazepam 2 Mg/Ml Vial IV 4 mg Q15MIN PRN Administration CIWA-Ar >25 Magnesium Hydroxide 30 ml 03/28/22 23:17 Magnesium Hydroxide (Mom) Oral Liqd Udc PO Q4H PRN Constipation Methylprednisolone Sodium Succinate 60 mg 03/30/22 22:00 03/31/22 05:59 Methylprednisolone Sod Succinate 125 Mg/2 Ml Inj IV 60 mg Q8HR JAMES Administration Montelukast Sodium 10 mg 03/30/22 22:00 03/30/22 22:08 Montelukast 10 Mg Tab PO 10 mg QHS JAMES Administration Morphine Sulfate 2 mg 03/28/22 23:17 Morphine 2 Mg/1 Ml Inj IV Q4H PRN Pain, Moderate (4-6) Morphine Sulfate 4 mg 03/28/22 23:17 Morphine 4 Mg/1 Ml Inj IV Q4H PRN Pain , Severe (7-10) Ondansetron HCl 4 mg 03/28/22 23:17 Ondansetron 4 Mg/2 Ml Inj IV Q8H PRN Nausea And Vomiting Sodium Chloride 10 ml 03/29/22 10:00 03/31/22 09:48 Sodium Chloride 0.9% 10 Ml Flush Syringe IV 10 ml BID JAMES Administration Sodium Chloride 10 ml 03/28/22 23:17 Sodium Chloride 0.9% 10 Ml Flush Syringe IV PRN PRN LINE FLUSH Nutrition/Malnutrition Assess - Dietary Evaluation Nutrition/Malnutrition Findings: Nutrition Notes Start: 03/29/22 16:08 Freq: Status: Active Protocol: Document 03/29/22 16:08 KAILYN (Rec: 03/29/22 16:32 KAILYN [id number]) Nutrition Notes Need for Assessment 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 Current Diet Regular Diet (since B 03/29). Labs/Tests 03/29: Crea 0.5, Glu 123. Pertinent Medications 03/29: Thiamine 100 mg, Folic acid 1 mg, Multivitamins, Minerals 10 ml, others nutritionally unremarkable. 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 Weight Status Appropriate Subjective/Other Information RD consult for risk of malnutrition and nutrition education assessments. No reports available on Pt's PO intake of meals at the time , will assess at F/U. Pt is on Nasal Cannula, O2 saturation @ 98%, according to Physical Assessment History notes. Pt has missing teeth, according to Physical Assessment History notes. Pt shows no signs of concern for risk of malnutrition atthe time, according to Physical Assessment History notes. Pt still in critical condition , not a candidate for Nutrition Education at the time, will assess feasibility on F/U. Percent of energy/protein needs met: Prescribed Regular Diet provides for energy/protein needs (2,289 Kcal/89 g) during LOS. Burn Absent Trauma Absent GI Symptoms None Food Allergy No Skin Integrity/Comment Assessment WNL. Minimum of two criteria No #1 Nutrition Diagnosis No nutrition diagnosis at this time Comments: Skip assess Pt's PO intake of meals and feasibility for nutrition education at F/U. Is patient on ventilator? No Is Patient Ambulatory and/or Out of Bed Yes REE-([place]-St. Jeor-ambulatory/OOB) [ 1472.744 [id number]] Kcal/Kg value to use for calculation 29 Approximate Energy Requirements Using 1543 kcal/Kg Calculation Used for Recommendations Kcal/kg Additional Notes Protein: 0.8-1 g/Kg IBW; 46-57 g/day. Fluids: 1 ml/Kcal, or as per MD. Nutrition Intervention Change Diet Order: Continue Regular Diet, as tolerated. Follow-Up By: 04/05/22 Additional Comments Nutrition education will be provided on F/U, if feasible. Continue monitoring food tolerance, %PO intake of meals , and BM. <DIOMEDES KEYS - Last Filed: 03/31/22 18:06> Assessment and Plan Assessment and plan: I saw and evaluated the patient. I agree with the findings and the plan of care as documented in the Nurse Practitioner's~note, with the following corrections and additions. Hospitalist Physical - Constitutional Vitals: Temp Pulse Resp BP Pulse Ox 97.6 F 103 H 17 141/85 97 03/31/22 14:00 03/31/22 14:46 03/31/22 14:46 03/31/22 15:00 03/31/22 15:00 Results - Labs CBC & Chem 7: 03/30/22 04:34 03/31/22 04:32 Labs: Laboratory Last Values WBC 7.0 K/mm3 (4.5-11.0) 03/30/22 04:34 RBC 4.62 M/mm3 (3.65-5.03) 03/30/22 04:34 Hgb 12.8 gm/dl (10.1-14.3) 03/30/22 04:34 Hct 40.8 % (30.3-42.9) 03/30/22 04:34 MCV 88 fl (79-97) 03/30/22 04:34 MCH 28 pg (28-32) 03/30/22 04:34 MCHC 32 % (30-34) 03/30/22 04:34 RDW 21.4 % (13.2-15.2) H 03/30/22 04:34 Plt Count 276 K/mm3 (140-440) 03/30/22 04:34 Add Manual Diff Complete 03/28/22 19:18 Total Counted 100 03/28/22 19:18 Seg Neutrophils % Residential Mortgage Underwriter 03/28/22 19:18 Seg Neuts % (Manual) 93.0 % (40.0-70.0) H 03/28/22 19:18 Band Neutrophils % 0 % 03/28/22 19:18 Lymphocytes % (Manual) 6.0 % (13.4-35.0) L 03/28/22 19:18 Reactive Lymphs % (Man) 0 % 03/28/22 19:18 Monocytes % (Manual) 1.0 % (0.0-7.3) 03/28/22 19:18 Eosinophils % (Manual) 0 % (0.0-4.3) 03/28/22 19:18 Basophils % (Manual) 0 % (0.0-1.8) 03/28/22 19:18 Metamyelocytes % 0 % 03/28/22 19:18 Myelocytes % 0 % 03/28/22 19:18 Promyelocytes % 0 % 03/28/22 19:18 Blast Cells % 0 % 03/28/22 19:18 Nucleated RBC % Not Reportable 03/28/22 19:18 Seg Neutrophils # Man 11.5 K/mm3 (1.8-7.7) H 03/28/22 19:18 Band Neutrophils # 0.0 K/mm3 03/28/22 19:18 Lymphocytes # (Manual) 0.7 K/mm3 (1.2-5.4) L 03/28/22 19:18 Abs React Lymphs (Man) 0.0 K/mm3 03/28/22 19:18 Monocytes # (Manual) 0.1 K/mm3 (0.0-0.8) 03/28/22 19:18 Eosinophils # (Manual) 0.0 K/mm3 (0.0-0.4) 03/28/22 19:18 Basophils # (Manual) 0.0 K/mm3 (0.0-0.1) 03/28/22 19:18 Metamyelocytes # 0.0 K/mm3 03/28/22 19:18 Myelocytes # 0.0 K/mm3 03/28/22 19:18 Promyelocytes # 0.0 K/mm3 03/28/22 19:18 Blast Cells # 0.0 K/mm3 03/28/22 19:18 WBC Morphology Not Reportable 03/28/22 19:18 Hypersegmented Neuts Not Reportable 03/28/22 19:18 Hyposegmented Neuts Not Reportable 03/28/22 19:18 Hypogranular Neuts Not Reportable 03/28/22 19:18 Smudge Cells Not Reportable 03/28/22 19:18 Toxic Granulation Not Reportable 03/28/22 19:18 Toxic Vacuolation Not Reportable 03/28/22 19:18 Dohle Bodies Not Reportable 03/28/22 19:18 Pelger-Huet Anomaly Not Reportable 03/28/22 19:18 Davian Rods Not Reportable 03/28/22 19:18 Platelet Estimate Consistent w auto 03/28/22 19:18 Clumped Platelets Not Reportable 03/28/22 19:18 Plt Clumps, EDTA Not Reportable 03/28/22 19:18 Large Platelets Not Reportable 03/28/22 19:18 Giant Platelets Not Reportable 03/28/22 19:18 Platelet Satelliting Not Reportable 03/28/22 19:18 Plt Morphology Comment Not Reportable 03/28/22 19:18 RBC Morphology Not Reportable 03/28/22 19:18 Dimorphic RBCs Not Reportable 03/28/22 19:18 Polychromasia Not Reportable 03/28/22 19:18 Hypochromasia Not Reportable 03/28/22 19:18 Poikilocytosis Not Reportable 03/28/22 19:18 Anisocytosis 1+ 03/28/22 19:18 Microcytosis Not Reportable 03/28/22 19:18 Macrocytosis Not Reportable 03/28/22 19:18 Spherocytes Not Reportable 03/28/22 19:18 Pappenheimer Bodies Not Reportable 03/28/22 19:18 Sickle Cells Not Reportable 03/28/22 19:18 Target Cells Not Reportable 03/28/22 19:18 Tear Drop Cells Rare 03/28/22 19:18 Ovalocytes Not Reportable 03/28/22 19:18 Helmet Cells Not Reportable 03/28/22 19:18 [place] Bodies Not Reportable 03/28/22 19:18 [place] Rings Not Reportable 03/28/22 19:18 Yazmin Cells Not Reportable 03/28/22 19:18 Bite Cells Not Reportable 03/28/22 19:18 Crenated Cell Not Reportable 03/28/22 19:18 Elliptocytes Not Reportable 03/28/22 19:18 Acanthocytes (Spur) Not Reportable 03/28/22 19:18 Rouleaux Not Reportable 03/28/22 19:18 Hemoglobin C Crystals Not Reportable 03/28/22 19:18 Schistocytes Not Reportable 03/28/22 19:18 Malaria parasites Not Reportable 03/28/22 19:18 Jer Bodies Not Reportable 03/28/22 19:18 Hem Pathologist Commnt No 03/28/22 19:18 ABG pH 7.344 pH Units (7.350-7.450) L 03/30/22 04:04 ABG pCO2 52.8 mm Hg 03/30/22 04:04 ABG pO2 92.9 mm Hg (80.0-90.0) H 03/30/22 04:04 ABG HCO3 28.1 mmol/L (20.0-26.0) H 03/30/22 04:04 ABG O2 Saturation 97.0 % (95.0-99.0) 03/30/22 04:04 ABG O2 Content 17.5 (0.0-44) 03/30/22 04:04 ABG Base Excess 1.5 mmol/L (-2.0-3.0) 03/30/22 04:04 ABG Hemoglobin 13.0 gm/dl (12.0-16.0) 03/30/22 04:04 ABG Carboxyhemoglobin 1.5 % (0.0-5.0) 03/30/22 04:04 ABG Methemoglobin 0.4 % (0.0-1.5) 03/30/22 04:04 Oxyhemoglobin 95.1 % (95.0-99.0) 03/30/22 04:04 FiO2 28 % 03/30/22 04:04 Sodium 139 mmol/L (137-145) 03/31/22 04:32 Potassium 4.2 mmol/L (3.6-5.0) 03/31/22 04:32 Chloride 105.4 mmol/L (98-107) 03/31/22 04:32 Carbon Dioxide 27 mmol/L (22-30) 03/31/22 04:32 Anion Gap 11 mmol/L 03/31/22 04:32 BUN 11 mg/dL (7-17) 03/31/22 04:32 Creatinine 0.4 mg/dL (0.6-1.2) L 03/31/22 04:32 Estimated GFR > 60 ml/min 03/31/22 04:32 BUN/Creatinine Ratio 28 % 03/31/22 04:32 Glucose 140 mg/dL (65-100) H 03/31/22 04:32 POC Glucose 194 mg/dL (70-105) H 03/31/22 11:45 Calcium 8.9 mg/dL (8.4-10.2) 03/31/22 04:32 Total Bilirubin 0.30 mg/dL (0.1-1.2) 03/28/22 19:18 AST 36 units/L (5-40) 03/28/22 19:18 ALT 29 units/L (7-56) 03/28/22 19:18 Alkaline Phosphatase 85 units/L (35-129) 03/28/22 19:18 C-Reactive Protein 0.30 mg/dL (0.00-1.30) 03/30/22 04:34 NT-Pro-B Natriuret Pep 556.4 pg/mL (0-900) 03/28/22 19:18 Total Protein 6.9 g/dL (6.3-8.2) 03/28/22 19:18 Albumin 4.1 g/dL (3.9-5) 03/28/22 19:18 Albumin/Globulin Ratio 1.5 % 03/28/22 19:18 Procalcitonin < 0.05 ng/mL (<0.15) 03/30/22 04:34 Urine Color Yellow (Yellow) 03/29/22 18:10 Urine Turbidity Clear (Clear) 03/29/22 18:10 Urine pH 5.0 (5.0-7.0) 03/29/22 18:10 Ur Specific [place] 1.021 (1.003-1.030) 03/29/22 18:10 Urine Protein <15 mg/dl mg/dL (Negative) 03/29/22 18:10 Urine Glucose (UA) Neg mg/dL (Negative) 03/29/22 18:10 Urine Ketones Neg mg/dL (Negative) 03/29/22 18:10 Urine Blood Neg (Negative) 03/29/22 18:10 Urine Nitrite Neg (Negative) 03/29/22 18:10 Urine Bilirubin Neg (Negative) 03/29/22 18:10 Urine Urobilinogen < 2.0 mg/dL (<2.0) 03/29/22 18:10 Ur Leukocyte Esterase Lg (Negative) 03/29/22 18:10 Urine WBC (Auto) 6.0 /HPF (0.0-6.0) 03/29/22 18:10 Urine RBC (Auto) 2.0 /HPF (0.0-6.0) 03/29/22 18:10 U Epithel Cells (Auto) 6.0 /HPF (0-13.0) 03/29/22 18:10 Urine Mucus Few /HPF 03/29/22 18:10 Salicylates < 0.3 mg/dL (2.8-20.0) L 03/28/22 19:18 Urine Opiates Screen Presumptive negative 03/29/22 18:10 Urine Methadone Screen Presumptive negative 03/29/22 18:10 Acetaminophen 5.0 ug/mL (10.0-30.0) L 03/28/22 19:18 Ur Barbiturates Screen Presumptive negative 03/29/22 18:10 Ur Phencyclidine Scrn Presumptive negative 03/29/22 18:10 Ur Amphetamines Screen Presumptive negative 03/29/22 18:10 U Benzodiazepines Scrn Presumptive negative 03/29/22 18:10 Urine Cocaine Screen Presumptive positive 03/29/22 18:10 U Marijuana (THC) Screen Presumptive positive 03/29/22 18:10 Drugs of Abuse Note Disclamer 03/29/22 18:10 Plasma/Serum Alcohol < 0.01 % (0-0.07) 03/28/22 19:18 Microbiology: Microbiology 03/29/22 Unknown Urine,Clean Catch Urine Culture - Preliminary 03/28/22 23:19 Peripheral/Venous Blood Culture - Preliminary NO GROWTH AFTER 48 HOURS 03/28/22 22:35 Peripheral/Venous Blood Culture - Preliminary NO GROWTH AFTER 48 HOURS Landa/IV: Voiding Method Bedside Commode Active Medications - Current Medications Current Medications: Generic Name Dose Route Start Last Admin Trade Name Freq PRN Reason Stop Dose Admin Acetaminophen 650 mg 03/28/22 23:17 Acetaminophen 325 Mg Tab PO Q6H PRN Pain MILD(1-3)/Fever >100.5/BAÑUELOS Albuterol 2.5 mg 03/30/22 08:33 Albuterol 2.5 Mg/3 Ml Nebu IH Q4HRT PRN Shortness Of Breath Albuterol/Ipratropium 1 ampul 03/30/22 14:00 03/31/22 14:45 Ipratropium/Albuterol Sulfate 3 Ml Ampul.Neb IH 1 ampul TIDRT JAMES Administration Arformoterol Tartrate 15 mcg 03/30/22 20:00 03/31/22 08:06 Arformoterol 15 Mcg/2 Ml Nebu IH 15 mcg Q12HRT JAMES Administration Azithromycin 500 mg 03/30/22 22:00 03/30/22 22:08 Azithromycin 250 Mg Tab PO 04/01/22 22:01 500 mg Q24H JAMES Administration Protocol Budesonide 0.5 mg 03/30/22 20:00 03/31/22 08:06 Budesonide 0.5 Mg/2 Ml Nebu IH 0.5 mg Q12HRT JAMES Administration Clonidine HCl 0.1 mg 03/30/22 07:58 Clonidine 0.1 Mg Tab PO Q4H PRN Agitation Enoxaparin Sodium 40 mg 03/29/22 10:00 03/31/22 09:48 Enoxaparin 40 Mg/0.4 Ml Inj SUB-Q 40 mg QDAY@1000 JAMES Administration Protocol Famotidine 20 mg 03/31/22 10:00 03/31/22 09:48 Famotidine 20 Mg Tab PO 20 mg DAILY JAMES Administration Haloperidol Lactate 5 mg 03/30/22 15:10 Haloperidol Lactate 5 Mg/1 Ml Inj IM Q6H PRN Agitation Hydralazine HCl 5 mg 03/30/22 00:32 03/30/22 09:32 Hydralazine 20 Mg/1 Ml Inj IV 5 mg Q30MIN PRN Administration SBP >/=160; DBP >/=100 Ceftriaxone Sodium 2 gm in 100 mls @ 200 mls/hr 03/29/22 10:00 03/31/22 09:48 Rocephin/Ns 2 Gm/100 Ml IV 04/01/22 10:29 200 mls/hr Q24H JAMES Administration Protocol Valproate Sodium 500 mg/ 105 mls @ 100 mls/hr 03/30/22 16:00 03/31/22 09:47 Sodium Chloride IV 100 mls/hr Q12HR JAMES Administration Lorazepam 2 mg 03/28/22 23:17 03/30/22 05:03 Lorazepam 2 Mg/Ml Vial IV 2 mg Q1H PRN Administration CIWA-Ar 8-15 Lorazepam 4 mg 03/28/22 23:17 03/29/22 20:13 Lorazepam 2 Mg/Ml Vial IV 4 mg Q1H PRN Administration CIWA-Ar 16-25 Lorazepam 4 mg 03/28/22 23:17 03/29/22 08:45 Lorazepam 2 Mg/Ml Vial IV 4 mg Q15MIN PRN Administration CIWA-Ar >25 Magnesium Hydroxide 30 ml 03/28/22 23:17 Magnesium Hydroxide (Mom) Oral Liqd Udc PO Q4H PRN Constipation Methylprednisolone Sodium Succinate 60 mg 03/30/22 22:00 03/31/22 15:37 Methylprednisolone Sod Succinate 125 Mg/2 Ml Inj IV 60 mg Q8HR JAMES Administration Montelukast Sodium 10 mg 03/30/22 22:00 03/30/22 22:08 Montelukast 10 Mg Tab PO 10 mg QHS JAMES Administration Morphine Sulfate 2 mg 03/28/22 23:17 Morphine 2 Mg/1 Ml Inj IV Q4H PRN Pain, Moderate (4-6) Morphine Sulfate 4 mg 03/28/22 23:17 Morphine 4 Mg/1 Ml Inj IV Q4H PRN Pain , Severe (7-10) Ondansetron HCl 4 mg 03/28/22 23:17 Ondansetron 4 Mg/2 Ml Inj IV Q8H PRN Nausea And Vomiting Sodium Chloride 10 ml 03/29/22 10:00 03/31/22 09:48 Sodium Chloride 0.9% 10 Ml Flush Syringe IV 10 ml BID JAMES Administration Sodium Chloride 10 ml 03/28/22 23:17 Sodium Chloride 0.9% 10 Ml Flush Syringe IV PRN PRN LINE FLUSH Nutrition/Malnutrition Assess - Dietary Evaluation Nutrition/Malnutrition Findings: Nutrition Notes Start: 03/29/22 16:08 Freq: Status: Active Protocol: Document 03/29/22 16:08 KAILYN (Rec: 03/29/22 16:32 KAILYN [id number]) Nutrition Notes Need for Assessment 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 Current Diet Regular Diet (since B 03/29). Labs/Tests 03/29: Crea 0.5, Glu 123. Pertinent Medications 03/29: Thiamine 100 mg, Folic acid 1 mg, Multivitamins, Minerals 10 ml, others nutritionally unremarkable. 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 Weight Status Appropriate Subjective/Other Information RD consult for risk of malnutrition and nutrition education assessments. No reports available on Pt's PO intake of meals at the time , will assess at F/U. Pt is on Nasal Cannula, O2 saturation @ 98%, according to Physical Assessment History notes. Pt has missing teeth, according to Physical Assessment History notes. Pt shows no signs of concern for risk of malnutrition atthe time, according to Physical Assessment History notes. Pt still in critical condition , not a candidate for Nutrition Education at the time, will assess feasibility on F/U. Percent of energy/protein needs met: Prescribed Regular Diet provides for energy/protein needs (2,289 Kcal/89 g) during LOS. Burn Absent Trauma Absent GI Symptoms None Food Allergy No Skin Integrity/Comment Assessment WNL. Minimum of two criteria No #1 Nutrition Diagnosis No nutrition diagnosis at this time Comments: Skip assess Pt's PO intake of meals and feasibility for nutrition education at F/U. Is patient on ventilator? No Is Patient Ambulatory and/or Out of Bed Yes REE-([place]-St. Jeor-ambulatory/OOB) [ 5082.744 NUTR.MSJOOB] Kcal/Kg value to use for calculation 29 Approximate Energy Requirements Using 1543 kcal/Kg Calculation Used for Recommendations Kcal/kg Additional Notes Protein: 0.8-1 g/Kg IBW; 46-57 g/day. Fluids: 1 ml/Kcal, or as per MD. Nutrition Intervention Change Diet Order: Continue Regular Diet, as tolerated. Follow-Up By: 04/05/22 Additional Comments Nutrition education will be provided on F/U, if feasible. Continue monitoring food tolerance, %PO intake of meals , and BM.
[2022-03-31] MEDS: MONTELUKAST 10 MG TAB PO SCH (21:16)
[2022-03-31] MEDS: AZITHROMYCIN 250 MG TAB PO SCH (21:22)
[2022-04-01] MEDS: methylPREDNISolone Sod Succinate 125 MG/2 ML INJ IV SCH (06:43)
[2022-04-01] MEDS: BUDESONIDE 0.5 MG/2 ML NEBU IH SCH (08:36)
[2022-04-01] MEDS: IPRATROPIUM/ALBUTEROL SULFATE 3 ML AMPUL.NEB IH SCH ×2 (08:36→14:40)
[2022-04-01] MEDS: ARFORMOTEROL 15 MCG/2 ML NEBU IH SCH (08:36)
[2022-04-01] MEDS: cefTRIAXone/NS 2 GM/100 ML 2 GM/100 ML BAG IV SCH (09:40)
[2022-04-01] MEDS: ENOXAPARIN 40 MG/0.4 ML INJ SUB-Q SCH (09:41)
[2022-04-01] MEDS: VALPROATE SODIUM 500 MG in SODIUM CHLORIDE 0.9% 100 ML IV SCH (09:41)
[2022-04-01] MEDS: FAMOTIDINE 20 MG TAB PO SCH (09:41)
--- NOTE | 2022-04-01 14:52 | Discharge Summary ---
Providers - Providers Date of Admission: 03/28/22 23:18 Date of discharge: 04/01/22 Attending physician: WHITNEY BAE MD 03/28/22 23:18 Consult to Dietitian/Nutrition [CONS] Routine Physician Instructions: Reason For Exam: Reason for Consult: Diet education 03/29/22 12:07 Consult to Mental Health [CONS] Routine Reason For Exam: Polysubstances Abuse Primary care physician: ARRON TUBBS Hospitalization Condition: Stable Exam - Constitutional Vitals: Temp Pulse Resp BP Pulse Ox 97.8 F 105 H 18 141/81 90 04/01/22 11:44 04/01/22 11:44 04/01/22 11:44 04/01/22 11:44 04/01/22 11:44 Plan Care Plan Goals: Please make sure to stop smoking. That is the best way to prevent worsening of your shortness of breath. Please use all inhalers as prescribed. Make sure to establish care with a primary care provider. Professional and Agency Contacts To help Resolve Crises(29/05) [place] Crisis Line: Suicide Prevention Line: Crisis Text Line: Text START to 614703 Emergency: 911 Outpatient COMMUNITY Behavioral Health Resources: DEAMYLB: [facility] [address] [place], [place] [address] [address] [facility] - [address] [place] [address] Monday thru Monday - 8am - 5pm [place]: [facility] Address: [address] [place] [address] [facility] Address: [address] [place] [address] Monday thru Monday- 7am-2pm [facility] Address: [address] [place] [address] Monday thru Monday: 8:30AM-5PM In case of an emergency, please contact the following numbers: [place] Crisis and Access Line: Number: Crisis Text Line: (Text START) Number: 436064 Suicide Prevention Line: Number: Emergency Number: 911 SUBSTANCE ABUSE PROGRAMS: [facility]: Location: [place], [place] [employer] Address: [address] [place] [address] [facility]: Address: [address] [place] [address] [facility]: Address: [address] [place] [address] [facility]: Address: [address] [place] [address] [facility] Address: [address] [place] [id number]. Please contact above numbers to attempt placement into free based program. Medicaid Programs: [facility]: Address: [address] [place] [id number] [facility]: Address: [address] [place] [address] Follow up with: ARRON TUBBS MD [Primary Care Provider] - 3-5 Days Prescriptions: Montelukast [Singulair] 10 mg PO QHS 30 Days #[address] [Depakote Dr] 500 mg PO Q12HR 30 Days #60 tablet Prednisone [predniSONE 10 mg (6-Day Pack, 21 Tabs)] 10 mg PO .TAPER 6 Days #1 each Albuterol Sulfate [Proventil Hfa] 2 puff IH Q4HR PRN 30 Days #2 hfa.aer.ad PRN Reason: Wheezing Budesonide/Formoterol Fumarate [Symbicort 160-4.5 Mcg Inhaler] 10.2 gm IH Q12H 30 Days #2 each Azithromycin [Zithromax TAB] 500 mg PO Q24H 1 Days #2 tablet
[2022-04-01 17:00] VITALS: BP 135/73
[2022-04-01] MEDS ORDERED: DIVALPROEX DR 500 MG TAB PO SCH (22:00)
[2022-04-02] MEDS ORDERED: methylPREDNISolone Sod Succinate 125 MG/2 ML INJ IV SCH (10:00)
== END 2022-04-01 18:08 | disposition home or self-care (01) | DRG 193 ==
LOC: ED 16:27 → IMCU 23:18 → 4A 03-31 22:00
PROVIDERS: ADMIT Internal Medicine Geriatric Medicine; ATTEND Student in an Organized Health Care Education/Training Program
PROC: 5A09457 Assistance with Respiratory Ventilation, 24-96 Consecutive Hours, Continuous Positive Airway Pressure (ICD-10-PCS; 2022-03-28)
PROC: 4A033R1 Measurement of Arterial Saturation, Peripheral, Percutaneous Approach (ICD-10-PCS; principal; 2022-03-30)
DX: J18.9 Pneumonia, unspecified organism (principal); J96.02 Acute respiratory failure with hypercapnia; J96.01 Acute respiratory failure with hypoxia; J44.0 Chronic obstructive pulmonary disease with (acute) lower respiratory infection; G93.40 Encephalopathy, unspecified; F10.10 Alcohol abuse, uncomplicated; F14.10 Cocaine abuse, uncomplicated; F17.210 Nicotine dependence, cigarettes, uncomplicated; I10 Essential (primary) hypertension; D72.829 Elevated white blood cell count, unspecified
CPT/HCPCS: 36415; 36600; 71045; 80048; 80053; 80307; 80320; 81001; 82803; 82962; 83880; 84145; 85007; 85025; 85027; 86140; 87040; 87086; 94640; 94644; 94660; 94760; G0378; J3490; J7070; G0480; J0360; J0456; J0696; J1650; J2060; J2920; J2930; J3411; J3486

== ENCOUNTER 2022-07-06 03:16 | Inpatient (IN) | payer SELFPAY ==
[2022-07-06] MEDS ORDERED: MAGNESIUM SULFATE 2 GM/50 ML BAG IV ONE (03:36)
[2022-07-06] MEDS ORDERED: IPRATROPIUM/ALBUTEROL SULFATE 3 ML AMPUL.NEB IH ONE (03:37)
[2022-07-06] MEDS ORDERED: TERBUTALINE 1 MG/1 ML INJ SUB-Q ONE (03:37)
--- NOTE | 2022-07-06 03:51 | XRay Report ---
Chest single view INDICATION: Dyspnea IMPRESSION: Cardiomegaly with severe bilateral cardiopulmonary edema and moderate right pleural effus ion. Signer Name: Luigi Loyola MD Signed: 07/06/2022 3:47 AM Workstation Name: [id number]
--- NOTE | 2022-07-06 03:52 | Emergency Department Report ---
ED General Adult HPI - General Chief complaint: Dyspnea/Respdistress Stated complaint: DORIAN Time Seen by Provider: 07/06/22 03:33 Source: patient, EMS Mode of arrival: Ambulatory Limitations: No Limitations - History of Present Illness Initial comments: This is a 56-year-old female with medical history of COPD and also asthma who is still currently an active smoker brought in by EMS with concerns of short of breath and according to the nurse patient was satting in the high 60s on room air and immediately up into mid 90s once on 5 liter nasal cannula. Patient states she has been feeling short of breath for the past couple days and also coughing. Patient also noted bilateral lower extremity swelling. Patient denies using oxygen at home. Patient current denies any fever chill night sweat dizziness blurred vision lightheadedness headache tinnitus ear pain runny nose sore throat loss of taste loss of smell chest pain palpitation abdominal pain nausea vomiting diarrhea constipation joint pain muscle pain new rash and heat or cold intolerance Severity scale (0 -10): 0 - Related Data Previous Rx's Medication Instructions Recorded Last Taken Type Albuterol Sulfate [Proventil Hfa] 2 puff IH Q4HR PRN 30 Days #2 04/01/22 Unknown Rx [email or web address] Azithromycin [Zithromax TAB] 500 mg PO Q24H 1 Days #2 tablet 04/01/22 Unknown Rx Budesonide/Formoterol Fumarate 10.2 gm IH Q12H 30 Days #2 each 04/01/22 Unknown Rx [Symbicort 160-4.5 Mcg Inhaler] Divalproex Dr [Depakote Dr] 500 mg PO Q12HR 30 Days #60 tablet 04/01/22 Unknown Rx Montelukast [Singulair] 10 mg PO QHS 30 Days #30 tablet 04/01/22 Unknown Rx Prednisone [predniSONE 10 mg 10 mg PO .TAPER 6 Days #1 each 04/01/22 Unknown Rx (6-Day Pack, 21 Tabs)] Allergies Allergy/AdvReac Type Severity Reaction Status Date / Time No Known Allergies Allergy Verified 08/20/21 22:43 ED Review of Systems ROS: Stated complaint: DORIAN Other details as noted in HPI Comment: All other systems reviewed and negative Constitutional: no symptoms reported, see HPI Eyes: as per HPI ENT: as per HPI Respiratory: cough, shortness of breath, wheezing Cardiovascular: as per HPI Endocrine: no symptoms reported Gastrointestinal: as per HPI Musculoskeletal: as per HPI Skin: as per HPI Neurological: as per HPI Psychiatric: as per HPI Hematological/Lymphatic: as per HPI ED Past Medical Hx - Past Medical History Previous Medical History?: Yes Hx Hypertension: Yes Hx CVA: No Hx Heart Attack/AMI: No Hx Congestive Heart Failure: No Hx Diabetes: No Hx Deep Vein Thrombosis: No Hx Pulmonary Embolism: No Hx GERD: No Hx Renal Disease: No Hx Sickle Cell Disease: No Hx Arthritis: No Hx Headaches / Migraines: No Hx Seizures: No Hx Kidney Stones: No Hx Psychiatric Treatment: No Hx Asthma: Yes Hx COPD: Yes Hx Tuberculosis: No Hx Dementia: No Hx HIV: No Additional medical history: headaches - Social History Smoking Status: Current Every Day Smoker - Medications Home Medications: Home Medications Medication Instructions Recorded Confirmed Last Taken Type Albuterol Sulfate [Proventil Hfa] 2 puff IH Q4HR PRN 30 Days #2 04/01/22 Unknown Rx hfa.[email or web address] Azithromycin [Zithromax TAB] 500 mg PO Q24H 1 Days #2 tablet 04/01/22 Unknown Rx Budesonide/Formoterol Fumarate 10.2 gm IH Q12H 30 Days #2 each 04/01/22 Unknown Rx [Symbicort 160-4.5 Mcg Inhaler] Divalproex Dr [Depakote Dr] 500 mg PO Q12HR 30 Days #60 tablet 04/01/22 Unknown Rx Montelukast [Singulair] 10 mg PO QHS 30 Days #30 tablet 04/01/22 Unknown Rx Prednisone [predniSONE 10 mg 10 mg PO .TAPER 6 Days #1 each 04/01/22 Unknown Rx (6-Day Pack, 21 Tabs)] ED Physical Exam - General Limitations: No Limitations General appearance: alert, in distress (MILD) - Head Head exam: Present: atraumatic, normocephalic, normal inspection - Eye Eye exam: Present: normal appearance, PERRL, EOMI Pupils: Present: normal accommodation - ENT ENT exam: Present: normal exam, mucous membranes moist - Neck Neck exam: Present: normal inspection - Respiratory Respiratory exam: Present: normal lung sounds bilaterally, respiratory distress, wheezes, rales, accessory muscle use - Cardiovascular Cardiovascular Exam: Present: regular rate, normal rhythm, normal heart sounds - GI/Abdominal GI/Abdominal exam: Present: soft - Extremities Exam Extremities exam: Present: normal inspection, full ROM, normal capillary refill - Back Exam Back exam: Present: normal inspection, full ROM - Neurological Exam Neurological exam: Present: alert, oriented X3, CN II-XII intact - Psychiatric Psychiatric exam: Present: normal affect, normal mood - Skin Skin exam: Present: normal color ED Course Vital Signs 07/06/22 07/06/22 07/06/22 03:30 04:00 04:01 Temperature 98.9 F 98.0 F Pulse Rate 86 78 Pulse Rate [ Posterior Bilateral Throughout] Respiratory 16 20 Rate Respiratory Rate [Posterior Bilateral Throughout] Blood Pressure 98/66 Blood Pressure 128/84 [Right] O2 Sat by Pulse 98 94 94 Oximetry 07/06/22 04:04 Temperature Pulse Rate Pulse Rate [ 78 Posterior Bilateral Throughout] Respiratory Rate Respiratory 22 Rate [Posterior Bilateral Throughout] Blood Pressure Blood Pressure [Right] O2 Sat by Pulse Oximetry - Reevaluation(s) Reevaluation #1: 07/06/22 03:54 RT BROUGHT TO MY ATTENTION PATIENT REFUSES BIPAP. ED Medical Decision Making - Lab Data Result diagrams: 07/06/22 04:07 07/06/22 04:07 Critical care attestation.: If time is entered above; I have spent that time in minutes in the direct care of this critically ill patient, excluding procedure time. ED Disposition Clinical Impression: Acute exacerbation of COPD with asthma, Acute exacerbation of CHF (congestive heart failure) Disposition: 01 HOME / SELF CARE / HOMELESS Is pt being admited?: Yes Does the pt Need Aspirin: No Condition: Stable Time of Disposition: 05:09
[2022-07-06] MEDS: IPRATROPIUM/ALBUTEROL SULFATE 3 ML AMPUL.NEB IH ONE ×2 (04:03→04:04)
[2022-07-06 04:14] LABS: ABG Base Excess -1.5 mmol/L (-2.0-3.0); ABG HCO3 25.8 mmol/L (20.0-26.0); ABG Methemoglobin 0.6 % (0.0-1.5); ABG Oxygen Saturation 77.9 % (95.0-99.0); ABG PCO2 56.5 mm Hg; ABG PH 7.278 pH Units (7.350-7.450); ABG PO2 46.5 mm Hg (80.0-90.0)
[2022-07-06 04:32] LABS: Hematocrit 34.9 % (30.3-42.9); Hemoglobin 11.2 gm/dl (10.1-14.3); Mean Corpuscular HGB Conc 32 % (30-34); Mean Corpuscular Volume 90 fl (79-97); Platelet Count 202 K/mm3 (140-440); Red Blood Count 3.88 M/mm3 (3.65-5.03); Red Cell Distribution Width 18.3 % (13.2-15.2)
[2022-07-06 04:48] LABS: Alanine Aminotransferase 29 units/L (7-56); Albumin 2.9 g/dL (3.9-5); BUN/Creatinine Ratio 23; Blood Urea Nitrogen 21 mg/dL (7-17); Calcium 7.7 mg/dL (8.4-10.2); Hemolysis Index 27
[2022-07-06 04:53] LABS: ABG Base Excess -1.8 mmol/L (-2.0-3.0); ABG HCO3 26.5 mmol/L (20.0-26.0); ABG Methemoglobin 0.5 % (0.0-1.5); ABG Oxygen Saturation 96.4 % (95.0-99.0); ABG PCO2 63.9 mm Hg; ABG PH 7.236 pH Units (7.350-7.450); ABG PO2 91.9 mm Hg (80.0-90.0)
[2022-07-06] MEDS ORDERED: FUROSEMIDE 100 MG/10 ML INJ IV ONE (05:01)
[2022-07-06] MEDS ORDERED: MAGNESIUM HYDROXIDE (MOM) ORAL LIQD UDC PO PRN (05:15)
[2022-07-06] MEDS ORDERED: MORPHINE 2 MG/1 ML INJ IV PRN (05:15)
[2022-07-06] MEDS ORDERED: MORPHINE 4 MG/1 ML INJ IV PRN (05:15)
[2022-07-06] MEDS ORDERED: ALBUTEROL 2.5 MG/3 ML NEBU IH PRN (05:15)
[2022-07-06] MEDS ORDERED: ACETAMINOPHEN 325 MG TAB PO PRN (05:15)
[2022-07-06] MEDS ORDERED: ONDANSETRON 4 MG/2 ML INJ IV PRN (05:15)
--- NOTE | 2022-07-06 05:29 | History and Physical Report ---
History of Present Illness Date of examination: 07/06/22 Date of admission: 07/06/2022 Chief complaint: Shortness of Breath History of present illness: 86-year-old -[place] female with known history of COPD and asthma presenting to the emergency room today via EMS complaining of shortness of breath which started earlier this evening. She denies any chest pain, no fever or chills, no nausea or vomiting and no abdominal pain. Patient denies any sick contacts and no recent travel. Denies any contact with anyone with COVID-19. Patient however admits that she used some cocaine about 2 days ago. She continues to smoke tobacco almost on a daily basis. Upon arrival in the emergency room, O2 saturation was in the 60s and patient was placed on oxygen 5 L by nasal cannula with improvement of oxygen saturation to the 90s. Patient declined being placed on BiPAP. Work-up in the emergency room today: ABG reveals a pH of 7.23, PCO2 63.9, PO2 91.9, bicarb 26.5 O2 sat 96.4 Chest x-ray shows cardiomegaly with severe bilateral cardiopulmonary edema and moderate right pleural effusion. Patient has received a dose of Lasix, nebulizing treatments and steroid in the emergency room. Past History Past Medical History: COPD, hypertension, other (Asthma) Past Surgical History: No surgical history Social history: smoking (Current daily smoker) Family history: no significant family history Medications and Allergies Allergies Allergy/AdvReac Type Severity Reaction Status Date / Time No Known Allergies Allergy Verified 08/20/21 22:43 Home Medications Medication Instructions Recorded Confirmed Last Taken Type Albuterol Sulfate [Proventil Hfa] 2 puff IH Q4HR PRN 30 Days #2 04/01/22 Unknown Rx hfa.aer.ad Azithromycin [Zithromax TAB] 500 mg PO Q24H 1 Days #2 tablet 04/01/22 Unknown Rx Budesonide/Formoterol Fumarate 10.2 gm IH Q12H 30 Days #2 each 04/01/22 Unknown Rx [Symbicort 160-4.5 Mcg Inhaler] Divalproex Dr [Depakote Dr] 500 mg PO Q12HR 30 Days #60 tablet 04/01/22 Unknown Rx Montelukast [Singulair] 10 mg PO QHS 30 Days #30 tablet 04/01/22 Unknown Rx Prednisone [predniSONE 10 mg 10 mg PO .TAPER 6 Days #1 each 04/01/22 Unknown Rx (6-Day Pack, 21 Tabs)] Active Meds: Active Medications Acetaminophen (Acetaminophen 325 Mg Tab) 650 mg PO Q4H PRN PRN Reason: Pain MILD(1-3)/Fever >100.5/BAÑUELOS Albuterol (Albuterol 2.5 Mg/3 Ml Nebu) 2.5 mg IH Q3HRT PRN PRN Reason: Shortness Of Breath Albuterol/Ipratropium (Ipratropium/Albuterol Sulfate 3 Ml Ampul.Neb) 1 ampul IH Q6HRT JAMES Furosemide (Furosemide 40 Mg/4 Ml Inj) 40 mg IV BID@0600,1800 JAMES Heparin Sodium (Porcine) (Heparin 5,000 Unit/1 Ml Vial) 5,000 unit SUB-Q Q8HR JAMES Magnesium Hydroxide (Magnesium Hydroxide (Mom) Oral Liqd Udc) 30 ml PO Q4H PRN PRN Reason: Constipation Methylprednisolone Sodium Succinate (Methylprednisolone Sod Succinate 40 Mg/1 Ml Inj) 40 mg IV Q6HR JAMES Morphine Sulfate (Morphine 2 Mg/1 Ml Inj) 2 mg IV Q4H PRN PRN Reason: Pain, Moderate (4-6) Morphine Sulfate (Morphine 4 Mg/1 Ml Inj) 4 mg IV Q4H PRN PRN Reason: Pain , Severe (7-10) Ondansetron HCl (Ondansetron 4 Mg/2 Ml Inj) 4 mg IV Q8H PRN PRN Reason: Nausea And Vomiting Sodium Chloride (Sodium Chloride 0.9% 10 Ml Flush Syringe) 10 ml IV BID JAMES Sodium Chloride (Sodium Chloride 0.9% 10 Ml Flush Syringe) 10 ml IV PRN PRN PRN Reason: LINE FLUSH Review of Systems Constitutional: no fever, no chills Ears, nose, mouth and throat: no nasal congestion, no sore throat Cardiovascular: no chest pain, no palpitations Respiratory: cough, shortness of breath, wheezing Gastrointestinal: no abdominal pain, no nausea, no vomiting, no diarrhea Genitourinary Female: no pelvic pain, no flank pain, no dysuria Musculoskeletal: no neck pain, no low back pain Integumentary: no rash, no pruritis Neurological: no headaches, no confusion Psychiatric: no anxiety, no depression Endocrine: no polyphagia, no polydipsia, no polyuria, no nocturia Exam - Constitutional Vitals: Temp Pulse Resp BP Pulse Ox 98.0 F 78 22 98/66 94 07/06/22 04:01 07/06/22 04:04 07/06/22 04:04 07/06/22 04:01 07/06/22 04:01 General appearance: Present: no acute distress, well-nourished - EENT Eyes: Present: PERRL, EOM intact. Absent: scleral icterus ENT: hearing intact, clear oral mucosa, dentition normal - Neck Neck: Present: supple, normal ROM - Respiratory Respiratory effort: normal Respiratory: bilateral: rales, wheezing - Cardiovascular Rhythm: regular Heart Sounds: Present: S1 & S2. Absent: gallop, systolic murmur, diastolic murmur, rub, click - Extremities Extremities: no ischemia, pulses intact, pulses symmetrical, normal temperature, normal color, Full ROM Extremity abnormal: edema (1+ bilateral lower extremity edema) Peripheral Pulses: within normal limits - Abdominal General gastrointestinal: Present: soft, non-tender, non-distended, normal bowel sounds. Absent: mass - Integumentary Integumentary: Present: clear, warm, dry, normal turgor. Absent: rash - Musculoskeletal Musculoskeletal: strength equal bilaterally - Psychiatric Psychiatric: appropriate mood/affect, intact judgment & insight, memory intact, cooperative - Neurologic Neurologic: CNII-XII intact, no focal deficits, moves all extremities Results - Labs CBC & Chem 7: 07/06/22 04:07 07/06/22 04:07 Labs: Abnormal lab results 07/06/22 07/06/22 07/06/22 Range/Units 03:40 04:07 04:07 WBC 4.1 L (4.5-11.0) K/mm3 RDW 18.3 H (13.2-15.2) % D-Dimer 462.72 H (0-234) ng/mlDDU ABG pH 7.278 L (7.350-7.450) pH Units ABG pO2 46.5 L (80.0-90.0) mm Hg ABG HCO3 (20.0-26.0) mmol/L ABG O2 Saturation 77.9 L (95.0-99.0) % ABG Hemoglobin 11.1 L (12.0-16.0) gm/dl ABG Carboxyhemoglobin 8.5 H (0.0-5.0) % Oxyhemoglobin 70.8 L (95.0-99.0) % BUN (7-17) mg/dL Glucose (65-100) mg/dL Calcium (8.4-10.2) mg/dL Magnesium (1.7-2.3) mg/dL AST (5-40) units/L NT-Pro-B Natriuret Pep (0-900) pg/mL Total Protein (6.3-8.2) g/dL Albumin (3.9-5) g/dL 07/06/22 07/06/22 Range/Units 04:07 04:40 WBC (4.5-11.0) K/mm3 RDW (13.2-15.2) % D-Dimer (0-234) ng/mlDDU ABG pH 7.236 L (7.350-7.450) pH Units ABG pO2 91.9 H (80.0-90.0) mm Hg ABG HCO3 26.5 H (20.0-26.0) mmol/L ABG O2 Saturation (95.0-99.0) % ABG Hemoglobin 11.0 L (12.0-16.0) gm/dl ABG Carboxyhemoglobin 8.0 H (0.0-5.0) % Oxyhemoglobin 88.2 L (95.0-99.0) % BUN 21 H (7-17) mg/dL Glucose 119 H (65-100) mg/dL Calcium 7.7 L (8.4-10.2) mg/dL Magnesium 2.80 H (1.7-2.3) mg/dL AST 43 H (5-40) units/L NT-Pro-B Natriuret Pep 3261 H (0-900) pg/mL Total Protein 5.2 L (6.3-8.2) g/dL Albumin 2.9 L (3.9-5) g/dL Assessment and Plan Assessment: 1.Acute Hypoxic Respiratory Failure- secondary to COPD vs CHF 2.Tobacco abuse 3.Cocaine Abuse 4.Hypertension Plan: 1.Admitted and placed on nebulizing treatment and steroid 2.Will Keep O2 saturation greater than 92% 3.Counseled on quitting tobacco abuse and illicit drug use. 4.Placed on diuretics. Monitor input and outpu, daily weight. 5.Schedule for echocardiogram. 6. Cardiology evaluation and recommendation. DVT prophylaxis: SQ Heparin Code Status: Full Code.
[2022-07-06] MEDS: methylPREDNISolone Sod Succinate 40 MG/1 ML INJ IV SCH ×4 (06:25→23:16)
[2022-07-06] MEDS: FUROSEMIDE 40 MG/4 ML INJ IV SCH ×2 (06:25→19:02)
[2022-07-06] MEDS: HEPARIN 5,000 UNIT/1 ML VIAL SUB-Q SCH ×3 (06:30→23:13)
[2022-07-06] MEDS: IPRATROPIUM/ALBUTEROL SULFATE 3 ML AMPUL.NEB IH SCH ×3 (10:52→21:05)
[2022-07-06 13:03] LABS: Amphetamine Screen,Urine Negative; Benzodiazepines Screen,Urine Negative; Cannabinoid Screen,Urine Negative; Methadone Screen,Urine Negative; Opiate Screen,Urine Negative
--- NOTE | 2022-07-06 13:10 | Event Note ---
Date: 07/06/22 Patient seen and examined in the emergency department. She only reports a history of COPD for which she takes albuterol, Singulair and prednisone at home. She was updated about current care plan and agreeable. Cardiology consulted and evaluated the patient, pending formal recommendations. Echocardiogram completed pending read.
[2022-07-06 13:15] LABS: Cocaine Screen,Urine Positive
--- NOTE | 2022-07-06 16:07 | Consultation ---
History of Present Illness Consult date: 07/06/22 Requesting physician: HENRRY COLE Consult reason: congestive heart failure History of present illness: Patient is a 56-year-old female with a past medical history of COPD, asthma, tobacco abuse, and crack cocaine use who came to the ED for complaint of shortness of breath x3 days. Patient further reports dyspnea on exertion, orthopnea, and bilateral lower extremity edema. Patient denies chest pain, n ausea, vomiting, or diaphoresis. On arrival in the ED patient was found to have O2 sats in the 60s on room air patient was placed on nasal cannula. CXR showed bilateral cardiopulmonary edema and patient was found to have elevated BNP. Patient is previously unknown to our practice. Cardiology is consulted for CHF. Past History Past Medical History: COPD, hypertension, other (Asthma) Past Surgical History: No surgical history Social history: smoking (Current daily smoker), other (crack/cocaine) Family history: no significant family history Medications and Allergies Allergies Allergy/AdvReac Type Severity Reaction Status Date / Time No Known Allergies Allergy Verified 08/20/21 22:43 Home Medications Medication Instructions Recorded Confirmed Last Taken Type Albuterol Sulfate [Proventil Hfa] 2 puff IH Q4HR PRN 30 Days #2 04/01/22 Unknown Rx hfa.aer.[email or web address] Azithromycin [Zithromax TAB] 500 mg PO Q24H 1 Days #2 tablet 04/01/22 Unknown Rx Budesonide/Formoterol Fumarate 10.2 gm IH Q12H 30 Days #2 each 04/01/22 Unknown Rx [Symbicort 160-4.5 Mcg Inhaler] Divalproex [Richard Fuentes] 500 mg PO Q12HR 30 Days #60 tablet 04/01/22 Unknown Rx Montelukast [Singulair] 10 mg PO QHS 30 Days #30 tablet 04/01/22 Unknown Rx Prednisone [predniSONE 10 mg 10 mg PO .TAPER 6 Days #1 each 04/01/22 Unknown Rx (6-Day Pack, 21 Tabs)] Active Meds: Active Medications Acetaminophen (Acetaminophen 325 Mg Tab) 650 mg PO Q4H PRN PRN Reason: Pain MILD(1-3)/Fever >100.5/BAÑUELOS Albuterol (Albuterol 2.5 Mg/3 Ml Nebu) 2.5 mg IH Q3HRT PRN PRN Reason: Shortness Of Breath Albuterol/Ipratropium (Ipratropium/Albuterol Sulfate 3 Ml Ampul.Neb) 1 ampul IH Q6HRT [facility] Last Admin: 07/06/22 15:20 Dose: 1 ampul Furosemide (Furosemide 40 Mg/4 Ml Inj) 40 mg IV BID@0600,1800 [facility] Last Admin: 07/06/22 06:25 Dose: 40 mg Heparin Sodium (Porcine) (Heparin 5,000 Unit/1 Ml Vial) 5,000 unit SUB-Q Q8HR [facility] Last Admin: 07/06/22 15:20 Dose: 5,000 unit Magnesium Hydroxide (Magnesium Hydroxide (Mom) Oral Liqd Udc) 30 ml PO Q4H PRN PRN Reason: Constipation Methylprednisolone Sodium Succinate (Methylprednisolone Sod Succinate 40 Mg/1 Ml Inj) 40 mg IV Q6HR [facility] Last Admin: 07/06/22 13:23 Dose: 40 mg Morphine Sulfate (Morphine 2 Mg/1 Ml Inj) 2 mg IV Q4H PRN PRN Reason: Pain, Moderate (4-6) Last Admin: 07/06/22 08:10 Dose: 2 mg Morphine Sulfate (Morphine 4 Mg/1 Ml Inj) 4 mg IV Q4H PRN PRN Reason: Pain , Severe (7-10) Ondansetron HCl (Ondansetron 4 Mg/2 Ml Inj) 4 mg IV Q8H PRN PRN Reason: Nausea And Vomiting Sodium Chloride (Sodium Chloride 0.9% 10 Ml Flush Syringe) 10 ml IV BID [facility] Last Admin: 07/06/22 10:48 Dose: 10 ml Sodium Chloride (Sodium Chloride 0.9% 10 Ml Flush Syringe) 10 ml IV PRN PRN PRN Reason: LINE FLUSH Review of Systems Constitutional: no sweats, no night sweats Ears, nose, mouth and throat: no sinus pressure, no sinus pain Cardiovascular: orthopnea, shortness of breath, dyspnea on exertion, leg edema, no chest pain Respiratory: shortness of breath, dyspnea on exertion, wheezing Gastrointestinal: no abdominal pain, no nausea, no vomiting Musculoskeletal: no neck stiffness, no neck pain, no shooting arm pain Integumentary: no rash, no pruritis, no redness Neurological: no head injury, no transient paralysis Psychiatric: no anxiety, no memory loss Endocrine: no cold intolerance, no heat intolerance Hematologic/Lymphatic: no easy bruising, no easy bleeding Physical Examination Vital Signs Temp Pulse Resp BP Pulse Ox 98.9 F 86 16 128/84 98 07/06/22 03:30 07/06/22 03:30 07/06/22 03:30 07/06/22 03:30 07/06/22 03:30 General appearance: no acute distress HEENT: Positive: PERRL Neck: Positive: trachea midline Cardiac: Positive: Reg Rate and Rhythm Lungs: Positive: Wheezes Neuro: Positive: Grossly Intact Abdomen: Positive: Soft Skin: Negative: Rash, Suspicious Lesions, Ulceration Extremities: Present: upper extr. pulses, edema Results 07/06/22 04:07 07/06/22 04:07 Cardiac Enzymes 07/06/22 Range/Units 04:07 AST 43 H (5-40) units/L CBC 07/06/22 Range/Units 04:07 WBC 4.1 L (4.5-11.0) K/mm3 RBC 3.88 (3.65-5.03) M/mm3 Hgb 11.2 (10.1-14.3) gm/dl Hct 34.9 (30.3-42.9) % Plt Count 202 (140-440) K/mm3 Comprehensive Metabolic Panel 07/06/22 Range/Units 04:07 Sodium 140 (137-145) mmol/L Potassium 4.4 (3.6-5.0) mmol/L Chloride 104.4 (98-107) mmol/L Carbon Dioxide 24 (22-30) mmol/L BUN 21 H (7-17) mg/dL Creatinine 0.9 (0.6-1.2) mg/dL Glucose 119 H (65-100) mg/dL Calcium 7.7 L (8.4-10.2) mg/dL AST 43 H (5-40) units/L ALT 29 (7-56) units/L Alkaline Phosphatase 77 (35-129) units/L Total Protein 5.2 L (6.3-8.2) g/dL Albumin 2.9 L (3.9-5) g/dL - Imaging and Cardiology Echo: pending EKG interpretations - Telemetry EKG Rhythm: Sinus Rhythm - EKG Sinus rhythms and dysrhythmias: sinus rhythm Repolarization changes or abnormalities: nonspecific abnormality, ST segment, and/or T wave Assessment and Plan Patient is a 56-year-old female with a past medical history of COPD, asthma, tobacco abuse, and crack cocaine use who came to the ED for complaint of shortne ss of breath x3 days. Acute respiratory failure-pulmonology following Acute CHF Acute exacerbation of COPD Asthma Tobacco abuse UDS positive for cocaine Elevated D-dimer Plan: EKG shows sinus rhythm 80 nonspecific T abnormalities. No acute ischemic changes. Patient denies any complaint of chest pain BNP noted to be elevated and patient has bilateral lower extremity edema agree with diuresis with Lasix 40 mg IV twice daily Strict I&O's, daily weights, and repeat BMP in the a.m. Echo pending Will hold GDMT at this time due to soft blood pressures. Will initiate when BP can tolerate Patient elevated D-dimer primary team may wish to consider confirmatory PE rule out Patient seen in conjunction with Dr. Melissa who agrees with this plan of care - Patient Problems (1) Cocaine abuse Current Visit: Yes Status: Acute (2) Tobacco abuse Current Visit: Yes Status: Acute (3) Hypoxia Current Visit: No Status: Acute (4) COPD (chronic obstructive pulmonary disease) Current Visit: No Status: Acute (5) Acute exacerbation of COPD with asthma Current Visit: No Status: Acute (6) Acute exacerbation of CHF (congestive heart failure) Current Visit: No Status: Acute
--- NOTE | 2022-07-06 18:16 | Electrocardiograph Report ---
[facility] Test Date: 2022-07-06 Test Time: 10:41:03 Pat Name: LEELA EMANUEL Department: Room: [place] [address] Gender: F Program Admin: VIV : 1965 Requested By: JESSICA PULIDO Order Number: [id number] Reading MD: Alcides Bell Measurements Intervals [place] Rate: 80 P: 69 MT: 151 QRS: 40 QRSD: 79 T: QT: 458 QTc: 530 Interpretive Statements Sinus rhythm Left atrial enlargement Nonspecific T abnrm, anterolateral leads Prolonged QT interval No previous ECG available for comparison Electronically Signed On 07-06-2022 18:16:12 EDT by Alcides Bell
[2022-07-07] MEDS: IPRATROPIUM/ALBUTEROL SULFATE 3 ML AMPUL.NEB IH SCH ×4 (02:42→20:18)
[2022-07-07 05:07] LABS: Lymphocytes # (Auto) 0.2 K/mm3 (1.2-5.4); Lymphocytes % (Auto) 7.1 % (13.4-35.0); Mean Corpuscular HGB Conc 30 % (30-34); Mean Corpuscular Volume 91 fl (79-97); Monocytes # (Auto) 0.2 K/mm3 (0.0-0.8); Monocytes % (Auto) 5.4 % (0.0-7.3); Platelet Count 197 K/mm3 (140-440); Red Blood Count 4.07 M/mm3 (3.65-5.03); Red Cell Distribution Width 18.1 % (13.2-15.2)
[2022-07-07 05:08] LABS: Hematocrit 37.2 % (30.3-42.9); Hemoglobin 11.3 gm/dl (10.1-14.3)
[2022-07-07 05:31] LABS: Blood Urea Nitrogen 13 mg/dL (7-17); Calcium 7.8 mg/dL (8.4-10.2); Hemolysis Index 1
[2022-07-07 05:36] LABS: BUN/Creatinine Ratio 22
[2022-07-07] MEDS: methylPREDNISolone Sod Succinate 40 MG/1 ML INJ IV SCH ×3 (06:45→21:29)
[2022-07-07] MEDS: FUROSEMIDE 40 MG/4 ML INJ IV SCH ×2 (06:45→18:49)
[2022-07-07] MEDS: HEPARIN 5,000 UNIT/1 ML VIAL SUB-Q SCH ×3 (06:45→21:29)
[2022-07-07] MEDS: DIVALPROEX DR 500 MG TAB PO SCH ×2 (09:49→21:29)
[2022-07-07] MEDS ORDERED: methylPREDNISolone Sod Succinate 40 MG/1 ML INJ IV SCH (10:00)
--- NOTE | 2022-07-07 10:08 | Consultation ---
History of Present Illness Consult date: 07/07/22 Requesting physician: HENRRY COLE Reason for consult: COPD, other (asthma exacerbation) History of present illness: 56 y/o female who appears older stage age admitted with acute respiratory failure. Patient very lethargic on exam. Per nurse just got depakote. Patient denies smoking but when asked about UDS admits that she does smoke crack. Remainder of history is not obtainable as patient continues to fall asleep. When she is awake she is appropriate. Past History Past Medical History: COPD, hypertension, other (Asthma) Past Surgical History: No surgical history Social history: smoking (Current daily smoker), other (crack/cocaine) Family history: no significant family history Medications and Allergies Allergies Allergy/AdvReac Type Severity Reaction Status Date / Time No Known Allergies Allergy Verified 07/07/22 09:26 Home Medications Medication Instructions Recorded Confirmed Last Taken Type Albuterol Sulfate [Proventil Hfa] 2 puff IH Q4HR PRN 30 Days #2 04/01/22 07/07/22 Unknown Rx hfa.aer.ad Azithromycin [Zithromax TAB] 500 mg PO Q24H 1 Days #2 tablet 04/01/22 07/07/22 Unknown Rx Budesonide/Formoterol Fumarate 10.2 gm IH Q12H 30 Days #2 each 04/01/22 07/07/22 Unknown Rx [Symbicort 160-4.5 Mcg Inhaler] Divalproex Dr [Depakote Dr] 500 mg PO Q12HR 30 Days #60 tablet 04/01/22 07/07/22 Unknown Rx Montelukast [Singulair] 10 mg PO QHS 30 Days #30 tablet 04/01/22 07/07/22 Unknown Rx Prednisone [predniSONE 10 mg 10 mg PO .TAPER 6 Days #1 each 04/01/22 07/07/22 Unknown Rx (6-Day Pack, 21 Tabs)] Active Meds: Active Medications Acetaminophen (Acetaminophen 325 Mg Tab) 650 mg PO Q4H PRN PRN Reason: Pain MILD(1-3)/Fever >100.5/BAÑUELOS Albuterol (Albuterol 2.5 Mg/3 Ml Nebu) 2.5 mg IH Q3HRT PRN PRN Reason: Shortness Of Breath Albuterol/Ipratropium (Ipratropium/Albuterol Sulfate 3 Ml Ampul.Neb) 1 ampul IH Q6HRT [facility] Last Admin: 07/07/22 08:30 Dose: 1 ampul Budesonide (Budesonide 0.5 Mg/2 Ml Nebu) 0.5 mg IH Q12HRT [facility] Divalproex Sodium (Divalproex Dr 500 Mg Tab) 500 mg PO Q12HR [facility] Last Admin: 07/07/22 09:49 Dose: 500 mg Furosemide (Furosemide 40 Mg/4 Ml Inj) 40 mg IV BID@0600,1800 [facility] Last Admin: 07/07/22 06:45 Dose: 40 mg Heparin Sodium (Porcine) (Heparin 5,000 Unit/1 Ml Vial) 5,000 unit SUB-Q Q8HR [facility] Last Admin: 07/07/22 06:45 Dose: 5,000 unit Magnesium Hydroxide (Magnesium Hydroxide (Mom) Oral Liqd Udc) 30 ml PO Q4H PRN PRN Reason: Constipation Methylprednisolone Sodium Succinate (Methylprednisolone Sod Succinate 40 Mg/1 Ml Inj) 40 mg IV Q12HR [facility] Last Admin: 07/07/22 09:48 Dose: 40 mg Montelukast Sodium (Montelukast 10 Mg Tab) 10 mg PO QHS [facility] Morphine Sulfate (Morphine 2 Mg/1 Ml Inj) 2 mg IV Q4H PRN PRN Reason: Pain, Moderate (4-6) Last Admin: 07/06/22 08:10 Dose: 2 mg Morphine Sulfate (Morphine 4 Mg/1 Ml Inj) 4 mg IV Q4H PRN PRN Reason: Pain , Severe (7-10) Last Admin: 07/06/22 21:02 Dose: 4 mg Ondansetron HCl (Ondansetron 4 Mg/2 Ml Inj) 4 mg IV Q8H PRN PRN Reason: Nausea And Vomiting Last Admin: 07/06/22 21:03 Dose: 4 mg Sodium Chloride (Sodium Chloride 0.9% 10 Ml Flush Syringe) 10 ml IV BID [facility] Last Admin: 07/07/22 09:48 Dose: 10 ml Sodium Chloride (Sodium Chloride 0.9% 10 Ml Flush Syringe) 10 ml IV PRN PRN PRN Reason: LINE FLUSH Review of Systems ROS unobtainable: due to mental status Physical Examination Vital signs: Vital Signs Temp Pulse Resp BP Pulse Ox 98.9 F 86 16 128/84 98 07/06/22 03:30 07/06/22 03:30 07/06/22 03:30 07/06/22 03:30 07/06/22 03:30 General appearance: other (appears much older than stated age) ENT: other (very jaclyn poor dentition) Ascultation: Right: rales, Bilateral: diminished breath sounds Results - Laboratory Findings CBC and BMP: 07/07/22 03:37 07/07/22 03:37 ABG ABG pH 7.236 pH Units (7.350-7.450) L 07/06/22 04:40 ABG pCO2 63.9 mm Hg 07/06/22 04:40 ABG pO2 91.9 mm Hg (80.0-90.0) H 07/06/22 04:40 ABG O2 Saturation 96.4 % (95.0-99.0) 07/06/22 04:40 PT/INR, D-dimer D-Dimer 462.72 ng/mlDDU (0-234) H 07/06/22 04:07 Abnormal lab findings: Abnormal Labs 07/06/22 07/06/22 07/06/22 03:40 04:07 04:07 WBC 4.1 L RDW 18.3 H Lymph % (Auto) Lymph # (Auto) Seg Neutrophils % D-Dimer 462.72 H ABG pH 7.278 L ABG pO2 46.5 L ABG HCO3 ABG O2 Saturation 77.9 L ABG Hemoglobin 11.1 L ABG Carboxyhemoglobin 8.5 H Oxyhemoglobin 70.8 L Carbon Dioxide BUN Glucose Calcium Magnesium AST NT-Pro-B Natriuret Pep Total Protein Albumin 07/06/22 07/06/22 07/07/22 04:07 04:40 03:37 WBC 3.3 L RDW 18.1 H Lymph % (Auto) 7.1 L Lymph # (Auto) 0.2 L Seg Neutrophils % 87.5 H D-Dimer ABG pH 7.236 L ABG pO2 91.9 H ABG HCO3 26.5 H ABG O2 Saturation ABG Hemoglobin 11.0 L ABG Carboxyhemoglobin 8.0 H Oxyhemoglobin 88.2 L Carbon Dioxide BUN 21 H Glucose 119 H Calcium 7.7 L Magnesium 2.80 H AST 43 H NT-Pro-B Natriuret Pep 3261 H Total Protein 5.2 L Albumin 2.9 L 07/07/22 03:37 WBC RDW Lymph % (Auto) Lymph # (Auto) Seg Neutrophils % D-Dimer ABG pH ABG pO2 ABG HCO3 ABG O2 Saturation ABG Hemoglobin ABG Carboxyhemoglobin Oxyhemoglobin Carbon Dioxide 36 H D BUN Glucose 200 H Calcium 7.8 L Magnesium AST NT-Pro-B Natriuret Pep Total Protein Albumin - Diagnostic Findings Chest x-ray: image reviewed Assessment and Plan 56 y/o female with exacerbation of obstructive lung disease 1. Agree with IV steroids, may need to consider increasing dose 2. Agree with scheduled duonebs, added bID ICS 3. Follow up echo results, based on CXR agree with diuresis 4. Needs strict I/O. Per charting zero output and patient on BID lasix. Renal function is normal. Bicarb was increased on chemistry, could be from lasix but if no output this does not make sense 5. Cocaine positive on UDS, must stop, needs counseling. Can lead to lung disease or worsen underlying lung disease 6. Wean FiO2 as possible, if patient is a smoker, despite need would not recommend given potential harm to self as well as others
[2022-07-07] MEDS: BUDESONIDE 0.5 MG/2 ML NEBU IH SCH ×2 (11:00→20:18)
--- NOTE | 2022-07-07 12:38 | Progress Note ---
Assessment and Plan Assessment and plan: #Acute Hypoxic Respiratory Failure- secondary to COPD vs CHF #history of COPD #Severe pulmonary hypertension -NTproBNP 3261 -CTA of chest: negative for PE but did show bilateral pleural effusions, biapical nodular scarring and mild paraseptal emphysema -Echocardiogram shows LVEF 55-60%, mild diastolic dysfunction, RV volume overload and severe pulmonary hypertension -patient currently on 3L NC, will wean as tolerated -patient advised that she must stop smoking cocaine and cigarettes to improve her condition -Pulmonology and Cardiology following, assistance appreciated #Acute diastolic heart failure -Unclear if new or chronic -Likely secondary to severe pulmonary hypertension -Continue Lasix 40 IV twice daily -Cardiology following, assistance appreciated #Metabolic alkalosis -Likely secondary to diuresis vs CO2 retention due to lung disease #Tobacco abuse #Cocaine Abuse #Substance abuse counseling -UDS positive for cocaine, patient smokes cigarettes and unable to quantify how much -Patient declined nicotine patch -Smoking cessation and substance abuse counseling, supportive care, behavior change counseling, +15 minutes. #Hypertension -Reported history of hypertension -Patient currently not taking any medications -Patient currently normotensive and we will continue to monitor #Moderate protein calorie malnutrition -albumin 2.9 -nutrition consult #Advanced care planning -Disease education conducted, care plan discussed, diagnoses discussed, prognosis discussed, and patient acknowledges understanding with care plan -Time: +30 min History Interval history: No acute events overnight. Patient has refused nebulizing treatments since admission. Patient walking around the room at time of examination. Patient was updated about current care plan. She repeatedly stated "am I going to ". She has low complaints at this time. Hospitalist Physical - Physical exam Narrative exam: GENERAL: Well nourished and appears to be older than documented age. In no acute distress. HEENT: NC in place at 3LPM. Poor dentition. NECK: Supple. CHEST/LUNGS: Expiratory wheezes bilaterally. HEART/CARDIOVASCULAR: RRR. No murmur, rubs or gallops appreciated. ABDOMEN: +BS. NT/ND. SKIN: No rashes noted. NEURO: No focal motor deficit. Follows all commands and is ambulatory. MUSCULOSKELETAL: No joint effusion EXTREMITIES: No cyanosis, clubbing or edema. PSYCH: Cooperative. - Constitutional Vitals: Temp Pulse Resp BP Pulse Ox 97.8 F 86 18 106/62 94 07/07/22 09:05 07/07/22 09:05 07/07/22 09:05 07/07/22 09:05 07/07/22 09:05 General appearance: Present: no acute distress Results - Labs CBC & Chem 7: 07/07/22 03:37 07/08/22 05:15 Labs: Laboratory Last Values WBC 3.3 K/mm3 (4.5-11.0) L 07/07/22 03:37 RBC 4.07 M/mm3 (3.65-5.03) 07/07/22 03:37 Hgb 11.3 gm/dl (10.1-14.3) 07/07/22 03:37 Hct 37.2 % (30.3-42.9) 07/07/22 03:37 MCV 91 fl (79-97) 07/07/22 03:37 MCH 28 pg (28-32) 07/07/22 03:37 MCHC 30 % (30-34) 07/07/22 03:37 RDW 18.1 % (13.2-15.2) H 07/07/22 03:37 Plt Count 197 K/mm3 (140-440) 07/07/22 03:37 Lymph % (Auto) 7.1 % (13.4-35.0) L 07/07/22 03:37 [place] % (Auto) 5.4 % (0.0-7.3) 07/07/22 03:37 Eos % (Auto) 0.0 % (0.0-4.3) 07/07/22 03:37 Baso % (Auto) 0.0 % (0.0-1.8) 07/07/22 03:37 Lymph # (Auto) 0.2 K/mm3 (1.2-5.4) L 07/07/22 03:37 [place] # (Auto) 0.2 K/mm3 (0.0-0.8) 07/07/22 03:37 Eos # (Auto) 0.0 K/mm3 (0.0-0.4) 07/07/22 03:37 Baso # (Auto) 0.0 K/mm3 (0.0-0.1) 07/07/22 03:37 Seg Neutrophils % 87.5 % (40.0-70.0) H 07/07/22 03:37 Seg Neutrophils # 2.9 K/mm3 (1.8-7.7) 07/07/22 03:37 D-Dimer 462.72 ng/mlDDU (0-234) H 07/06/22 04:07 ABG pH 7.236 pH Units (7.350-7.450) L 07/06/22 04:40 ABG pCO2 63.9 mm Hg 07/06/22 04:40 ABG pO2 91.9 mm Hg (80.0-90.0) H 07/06/22 04:40 ABG HCO3 26.5 mmol/L (20.0-26.0) H 07/06/22 04:40 ABG O2 Saturation 96.4 % (95.0-99.0) 07/06/22 04:40 ABG O2 Content 13.8 (0.0-44) 07/06/22 04:40 ABG Base Excess -1.8 mmol/L (-2.0-3.0) 07/06/22 04:40 ABG Hemoglobin 11.0 gm/dl (12.0-16.0) L 07/06/22 04:40 ABG Carboxyhemoglobin 8.0 % (0.0-5.0) H 07/06/22 04:40 ABG Methemoglobin 0.5 % (0.0-1.5) 07/06/22 04:40 Oxyhemoglobin 88.2 % (95.0-99.0) L 07/06/22 04:40 FiO2 40 % 07/06/22 04:40 Sodium 144 mmol/L (137-145) 07/07/22 03:37 Potassium 4.8 mmol/L (3.6-5.0) 07/07/22 03:37 Chloride 100.1 mmol/L (98-107) 07/07/22 03:37 Carbon Dioxide 36 mmol/L (22-30) H D 07/07/22 03:37 Anion Gap 13 mmol/L 07/07/22 03:37 BUN 13 mg/dL (7-17) 07/07/22 03:37 Creatinine 0.6 mg/dL (0.6-1.2) 07/07/22 03:37 Estimated GFR > 60 ml/min 07/07/22 03:37 BUN/Creatinine Ratio 22 % 07/07/22 03:37 Glucose 200 mg/dL (65-100) H 07/07/22 03:37 Calcium 7.8 mg/dL (8.4-10.2) L 07/07/22 03:37 Magnesium 2.80 mg/dL (1.7-2.3) H 07/06/22 04:07 Total Bilirubin 0.30 mg/dL (0.1-1.2) 07/06/22 04:07 AST 43 units/L (5-40) H 07/06/22 04:07 ALT 29 units/L (7-56) 07/06/22 04:07 Alkaline Phosphatase 77 units/L (35-129) 07/06/22 04:07 NT-Pro-B Natriuret Pep 3261 pg/mL (0-900) H 07/06/22 04:07 Total Protein 5.2 g/dL (6.3-8.2) L 07/06/22 04:07 Albumin 2.9 g/dL (3.9-5) L 07/06/22 04:07 Albumin/Globulin Ratio 1.3 % 07/06/22 04:07 Urine Opiates Screen Negative 07/06/22 Unknown Urine Methadone Screen Negative 07/06/22 Unknown Ur Barbiturates Screen Negative 07/06/22 Unknown Ur Phencyclidine Scrn Negative 07/06/22 Unknown Ur Amphetamines Screen Negative 07/06/22 Unknown U Benzodiazepines Scrn Negative 07/06/22 Unknown Urine Cocaine Screen Positive 07/06/22 Unknown U Marijuana (THC) Screen Negative 07/06/22 Unknown Drugs of Abuse Note Disclamer 07/06/22 Unknown Active Medications - Current Medications Current Medications: Generic Name Dose Route Start Last Admin Trade Name Freq PRN Reason Stop Dose Admin Acetaminophen 650 mg 07/06/22 05:15 Acetaminophen 325 Mg Tab PO Q4H PRN Pain MILD(1-3)/Fever >100.5/BAÑUELOS Albuterol 2.5 mg 07/06/22 05:15 Albuterol 2.5 Mg/3 Ml Nebu IH Q3HRT PRN Shortness Of Breath Albuterol/Ipratropium 1 ampul 07/06/22 08:00 07/07/22 08:30 Ipratropium/Albuterol Sulfate 3 Ml Ampul.Neb IH 1 ampul Q6HRT JAMES Administration Budesonide 0.5 mg 07/07/22 11:00 07/07/22 11:00 Budesonide 0.5 Mg/2 Ml Nebu IH 0.5 mg Q12HRT JAMES Administration Divalproex Sodium 500 mg 07/07/22 10:00 07/07/22 09:[address] 500 Mg Tab PO 500 mg Q12HR JAMES Administration Furosemide 40 mg 07/06/22 06:00 07/07/22 06:45 Furosemide 40 Mg/4 Ml Inj IV 40 mg BID@0600,1800 JAMES Administration Heparin Sodium (Porcine) 5,000 unit 07/06/22 06:00 07/07/22 06:45 Heparin 5,000 Unit/1 Ml Vial SUB-Q 5,000 unit Q8HR JAMES Administration Magnesium Hydroxide 30 ml 07/06/22 05:15 Magnesium Hydroxide (Mom) Oral Liqd Udc PO Q4H PRN Constipation Montelukast Sodium 10 mg 07/07/22 22:00 Montelukast 10 Mg Tab PO QHS [facility] Ondansetron HCl 4 mg 07/06/22 05:15 07/06/22 21:03 Ondansetron 4 Mg/2 Ml Inj IV 4 mg Q8H PRN Administration Nausea And Vomiting Sodium Chloride 10 ml 07/06/22 10:00 07/07/22 09:48 Sodium Chloride 0.9% 10 Ml Flush Syringe IV 10 ml BID JAMES Administration Sodium Chloride 10 ml 07/06/22 05:15 Sodium Chloride 0.9% 10 Ml Flush Syringe IV PRN PRN LINE FLUSH
--- NOTE | 2022-07-07 15:56 | Progress Note ---
Assessment and Plan Patient is a 56-year-old female with a past medical history of COPD, asthma, tobacco abuse, and crack cocaine use who came to the ED for complaint of shortness of breath x3 days. Acute respiratory failure-pulmonology following Acute exacerbation of COPD Asthma Tobacco abuse UDS positive for cocaine Elevated D-dimer Pulmonary hypertension Echo 07/06/2022-EF 55 to 60%. Mild diastolic dysfunction is present impaired relaxation pattern. Right ventricle is dilated. Septum is flat in diastole consistent with RV volume overload. Right atrium is dilated. Mild tricuspid regurgitation. Mild tricuspid regurgitation. Severe pulmonary hypertension Plan: EKG shows sinus rhythm 80 nonspecific T abnormalities. No acute ischemic changes. Patient denies any complaint of chest pain Echo results noted above. Patient noted to have normal EF however patient has severe pulmonary hypertension Agree with diuresis with Lasix 40 mg IV twice daily Strict I&O's, daily weights, and repeat BMP in the a.m. Patient elevated D-dimer primary team may wish to consider confirmatory PE rule out Patient seen in conjunction with Dr. Melissa who agrees with this plan of care - Patient Problems (1) Cocaine abuse Current Visit: Yes Status: Acute (2) Tobacco abuse Current Visit: Yes Status: Acute (3) Hypoxia Current Visit: No Status: Acute (4) COPD (chronic obstructive pulmonary disease) Current Visit: No Status: Acute (5) Acute exacerbation of COPD with asthma Current Visit: No Status: Inactive (6) Acute exacerbation of CHF (congestive heart failure) Current Visit: No Status: Inactive Subjective Date of service: 07/07/22 Principal diagnosis: Acute respiratory failure, acute on chronic COPD Interval history: Patient resting in bed in no acute distress. Patient lethargic Sinus 80s to 90s with no events on monitor. Patient noted to have low O2 sats Objective Vital Signs Temp Pulse Pulse Pulse Resp Resp Resp 07/07/22 13:55 83 83 18 18 07/07/22 12:00 80 07/07/22 09:05 97.8 F 86 18 07/07/22 08:30 82 82 18 18 07/07/22 03:28 97.5 F L 62 14 07/06/22 23:30 07/06/22 23:24 97.3 F L 57 L 16 07/06/22 20:30 90 22 07/06/22 20:16 78 12 07/06/22 20:00 78 77 13 20 07/06/22 19:46 86 13 07/06/22 19:30 78 11 L 07/06/22 19:16 85 19 07/06/22 19:00 07/06/22 18:53 07/06/22 18:33 07/06/22 18:24 07/06/22 18:03 07/06/22 17:46 80 13 07/06/22 17:30 86 12 07/06/22 17:16 80 13 07/06/22 17:00 84 14 07/06/22 16:46 83 13 07/06/22 16:30 82 13 07/06/22 16:00 76 12 BP BP Pulse Ox 07/07/22 13:55 07/07/22 12:00 07/07/22 09:05 106/62 94 07/07/22 08:30 07/07/22 03:28 114/62 92 07/06/22 23:30 85 07/06/22 23:24 104/55 85 07/06/22 20:30 118/64 89 07/06/22 20:16 117/69 96 07/06/22 20:00 112/68 96 07/06/22 19:46 126/76 98 07/06/22 19:30 114/68 98 07/06/22 19:16 111/61 96 07/06/22 19:00 114/66 93 07/06/22 18:53 114/66 07/06/22 18:33 111/61 07/06/22 18:24 118/72 07/06/22 18:03 119/61 07/06/22 17:46 100/52 07/06/22 17:30 100/52 07/06/22 17:16 107/59 07/06/22 17:00 126/71 07/06/22 16:46 108/60 97 07/06/22 16:30 128/75 100 07/06/22 16:00 115/68 99 - Physical Examination General: No Apparent Distress HEENT: Positive: PERRL Neck: Positive: trachea midline Cardiac: Positive: Reg Rate and Rhythm Lungs: Positive: Wheezes Neuro: Positive: Grossly Intact Abdomen: Positive: Soft Skin: Negative: Rash, Suspicious Lesions, Ulceration Extremities: Present: upper extr. pulses, edema - Labs and Meds CBC 07/07/22 Range/Units 03:37 WBC 3.3 L (4.5-11.0) K/mm3 RBC 4.07 (3.65-5.03) M/mm3 Hgb 11.3 (10.1-14.3) gm/dl Hct 37.2 (30.3-42.9) % Plt Count 197 (140-440) K/mm3 Lymph # (Auto) 0.2 L (1.2-5.4) K/mm3 [place] # (Auto) 0.2 (0.0-0.8) K/mm3 Eos # (Auto) 0.0 (0.0-0.4) K/mm3 Baso # (Auto) 0.0 (0.0-0.1) K/mm3 Comprehensive Metabolic Panel 07/07/22 Range/Units 03:37 Sodium 144 (137-145) mmol/L Potassium 4.8 (3.6-5.0) mmol/L Chloride 100.1 (98-107) mmol/L Carbon Dioxide 36 H D (22-30) mmol/L BUN 13 (7-17) mg/dL Creatinine 0.6 (0.6-1.2) mg/dL Glucose 200 H (65-100) mg/dL Calcium 7.8 L (8.4-10.2) mg/dL - Imaging and Cardiology Echo: report reviewed - Telemetry EKG Rhythm: Sinus Rhythm - EKG Sinus rhythms and dysrhythmias: sinus rhythm Repolarization changes or abnormalities: nonspecific abnormality, ST segment, and/or T wave
--- NOTE | 2022-07-07 17:31 | Cat Scan Report ---
CTA CHEST WITH CONTRAST INDICATION / CLINICAL INFORMATION: rule out PE. TECHNIQUE: Axial CT images were obtained through the chest after injection of IV contrast. 3 plane GA P and/or 3D reconstructions were produced. All CT scans at this location are performed using CT dose reduction for ALARA by means of automated exposure control. COMPARISON: None available. FINDINGS: PULMONARY EMBOLUS: No pulmonary artery filling defect to the level of the proximal segmental branches . The main pulmonary artery is mildly enlarged measuring 34 mm in cross-section. THORACIC AORTA: No significant abnormality. HEART: Mild cardiomegaly. CORONARY ARTERY CALCIFICATION: Absent -- None. MEDIASTINUM / ALFREDO: No significant abnormality. PLEURA: Mild right-sided pleural effusion with compressive atelectasis of approximately 50% of the ri ght lower lobe. Small left pleural effusion with mild compressive atelectasis of the left lower lobe. No pneumothorax. LUNGS: Biapical nodular scarring. Mild paraseptal emphysema. ADDITIONAL FINDINGS: None. UPPER ABDOMEN: No acute findings. SKELETAL STRUCTURES: No significant osseous abnormality. IMPRESSION: 1. No CT evidence for pulmonary embolism. 2. Cardiomegaly with bilateral pleural effusions, suggestive of CHF. 3. Biapical nodular scarring and mild paraseptal emphysema. Signer Name: Az Case MD Signed: 07/07/2022 5:26 PM Workstation Name: [email or web address]
[2022-07-07] MEDS: MONTELUKAST 10 MG TAB PO SCH (21:29)
[2022-07-08] MEDS: BUDESONIDE 0.5 MG/2 ML NEBU IH SCH ×2 (02:28→08:31)
[2022-07-08 05:54] LABS: Blood Urea Nitrogen 15 mg/dL (7-17); Calcium 8.2 mg/dL (8.4-10.2); Hemolysis Index 7
[2022-07-08 06:03] LABS: BUN/Creatinine Ratio 30
[2022-07-08] MEDS: HEPARIN 5,000 UNIT/1 ML VIAL SUB-Q SCH ×3 (06:15→21:26)
[2022-07-08] MEDS: methylPREDNISolone Sod Succinate 40 MG/1 ML INJ IV SCH ×2 (06:17→13:16)
[2022-07-08] MEDS: FUROSEMIDE 40 MG/4 ML INJ IV SCH (07:13)
[2022-07-08] MEDS: IPRATROPIUM/ALBUTEROL SULFATE 3 ML AMPUL.NEB IH SCH ×3 (08:31→20:28)
[2022-07-08] MEDS: DIVALPROEX DR 500 MG TAB PO SCH ×2 (09:35→21:26)
--- NOTE | 2022-07-08 12:21 | Progress Note ---
Assessment and Plan Patient is a 56-year-old female with a past medical history of COPD, asthma, tobacco abuse, and crack cocaine use who came to the ED for complaint of shortness of breath x3 days. Acute respiratory failure-pulmonology following Acute exacerbation of COPD Asthma Tobacco abuse UDS positive for cocaine Elevated D-dimer Pulmonary hypertension Echo 07/06/2022-EF 55 to 60%. Mild diastolic dysfunction is present impaired relaxation pattern. Right ventricle is dilated. Septum is flat in diastole consistent with RV volume overload. Right atrium is dilated. Mild tricuspid regurgitation. Mild tricuspid regurgitation. Severe pulmonary hypertension Plan: Telemetry reviewed patient sinus 80s on monitor with no events Echo results noted above. Patient noted to have normal EF however patient has severe pulmonary hypertension Patient appears euvolemic on exam. Due to pulmonary hypertension will defer to pulmonology rec regarding diuresis Cardiac status appears otherwise stable. Will see as needed Patient seen in conjunction with Dr. Melissa who agrees with this plan of care - Patient Problems (1) Cocaine abuse Current Visit: Yes Status: Acute (2) Tobacco abuse Current Visit: Yes Status: Acute (3) Hypoxia Current Visit: No Status: Acute (4) COPD (chronic obstructive pulmonary disease) Current Visit: No Status: Acute (5) Acute exacerbation of COPD with asthma Current Visit: No Status: Inactive (6) Acute exacerbation of CHF (congestive heart failure) Current Visit: No Status: Inactive Subjective Date of service: 07/08/22 Principal diagnosis: Acute respiratory failure, acute on chronic COPD Interval history: Patient resting in bed in no acute distress. Patient is more alert this a.m. Sinus 80s with no events on monitor. Objective Vital Signs Temp Pulse Pulse Pulse Resp Resp Resp 07/08/22 11:00 07/08/22 08:31 82 85 18 18 07/08/22 07:56 97.2 F L 82 18 07/08/22 03:57 97.8 F 84 18 07/07/22 23:31 98.5 F 91 H 18 07/07/22 20:52 97 H 07/07/22 20:50 98.2 F 104 H 18 07/07/22 20:36 07/07/22 20:15 84 18 07/07/22 18:49 07/07/22 17:07 98.0 F 86 07/07/22 13:55 83 83 18 18 BP BP Pulse Ox 07/08/22 11:00 92 07/08/22 08:31 07/08/22 07:56 106/66 96 07/08/22 03:57 101/47 94 07/07/22 23:31 97/56 97 07/07/22 20:52 07/07/22 20:50 111/64 91 07/07/22 20:36 92 07/07/22 20:15 07/07/22 18:49 92/51 07/07/22 17:07 93/51 92 07/07/22 13:55 - Physical Examination General: No Apparent Distress HEENT: Positive: PERRL Neck: Positive: trachea midline Cardiac: Positive: Reg Rate and Rhythm Lungs: Positive: Rhonchi Neuro: Positive: Grossly Intact Abdomen: Positive: Soft Skin: Negative: Rash, Suspicious Lesions, Ulceration Extremities: Present: upper extr. pulses. Absent: edema - Labs and Meds Comprehensive Metabolic Panel 07/08/22 Range/Units 05:15 Sodium 145 (137-145) mmol/L Potassium 4.7 (3.6-5.0) mmol/L Chloride 99.0 (98-107) mmol/L Carbon Dioxide 40 H (22-30) mmol/L BUN 15 (7-17) mg/dL Creatinine 0.5 L (0.6-1.2) mg/dL Glucose 150 H (65-100) mg/dL Calcium 8.2 L (8.4-10.2) mg/dL - Imaging and Cardiology Echo: report reviewed - Telemetry EKG Rhythm: Sinus Rhythm - EKG Sinus rhythms and dysrhythmias: sinus rhythm Repolarization changes or abnormalities: nonspecific abnormality, ST segment, and/or T wave
--- NOTE | 2022-07-08 13:57 | Progress Note ---
Assessment and Plan 56 y/o female with exacerbation of obstructive lung disease 07/08/22: Echo shows normal EF. FiO2 was weaned down to 3 liters. Patient is still smoking. Attempted to talk to her about smoking cessation but not able to reason with patient. Would not recommend oxygen therapy for this patient as she is going to continue to smoke. consider psych consult to help with addiction. At this point, will sign off. 1. Agree with IV steroids, may need to consider increasing dose 2. Agree with scheduled duonebs, added bID ICS 3. Follow up echo results, based on CXR agree with diuresis 4. Needs strict I/O. Per charting zero output and patient on BID lasix. Renal function is normal. Bicarb was increased on chemistry, could be from lasix but if no output this does not make sense 5. Cocaine positive on UDS, must stop, needs counseling. Can lead to lung disease or worsen underlying lung disease 6. Wean FiO2 as possible, if patient is a smoker, despite need would not recommend given potential harm to self as well as others Subjective Date of service: 07/08/22 Principal diagnosis: Acute respiratory failure, acute on chronic COPD Interval history: No acute events. Sats in the low to mid 80's. Comfortable in no distress. Not answering questions. Objective Vital Signs - 12hr 07/08/22 07/08/22 07/08/22 03:57 07:56 08:31 Temperature 97.8 F 97.2 F L Pulse Rate 84 82 Pulse Rate [ 82 Anterior Bilateral Throughout] Pulse Rate [ 85 Posterior Bilateral Throughout] Respiratory 18 18 Rate Respiratory 18 Rate [Anterior Bilateral Throughout] Respiratory 18 Rate [Posterior Bilateral Throughout] Blood Pressure 101/47 106/66 O2 Sat by Pulse 94 96 Oximetry 07/08/22 07/08/22 07/08/22 11:00 11:57 12:00 Temperature 97.8 F Pulse Rate 86 87 Pulse Rate [ Anterior Bilateral Throughout] Pulse Rate [ Posterior Bilateral Throughout] Respiratory 18 Rate Respiratory Rate [Anterior Bilateral Throughout] Respiratory Rate [Posterior Bilateral Throughout] Blood Pressure 94/49 O2 Sat by Pulse 92 95 Oximetry Constitutional: other (appears much older than stated age) ENT: other (very jaclyn poor dentition) Ascultation: Right: rales, Bilateral: diminished breath sounds CBC and BMP: 07/07/22 03:37 07/08/22 05:15 ABG, PT/INR, D-dimer: ABG ABG pH 7.236 pH Units (7.350-7.450) L 07/06/22 04:40 ABG pCO2 63.9 mm Hg 07/06/22 04:40 ABG pO2 91.9 mm Hg (80.0-90.0) H 07/06/22 04:40 ABG O2 Saturation 96.4 % (95.0-99.0) 07/06/22 04:40 PT/INR, D-dimer D-Dimer 462.72 ng/mlDDU (0-234) H 07/06/22 04:07 Abnormal lab findings: Abnormal Labs 07/06/22 07/06/22 07/06/22 03:40 04:07 04:07 WBC 4.1 L RDW 18.3 H Lymph % (Auto) Lymph # (Auto) Seg Neutrophils % D-Dimer 462.72 H ABG pH 7.278 L ABG pO2 46.5 L ABG HCO3 ABG O2 Saturation 77.9 L ABG Hemoglobin 11.1 L ABG Carboxyhemoglobin 8.5 H Oxyhemoglobin 70.8 L Carbon Dioxide BUN Creatinine Glucose Calcium Magnesium AST NT-Pro-B Natriuret Pep Total Protein Albumin 07/06/22 07/06/22 07/07/22 04:07 04:40 03:37 WBC 3.3 L RDW 18.1 H Lymph % (Auto) 7.1 L Lymph # (Auto) 0.2 L Seg Neutrophils % 87.5 H D-Dimer ABG pH 7.236 L ABG pO2 91.9 H ABG HCO3 26.5 H ABG O2 Saturation ABG Hemoglobin 11.0 L ABG Carboxyhemoglobin 8.0 H Oxyhemoglobin 88.2 L Carbon Dioxide BUN 21 H Creatinine Glucose 119 H Calcium 7.7 L Magnesium 2.80 H AST 43 H NT-Pro-B Natriuret Pep 3261 H Total Protein 5.2 L Albumin 2.9 L 07/07/22 07/08/22 03:37 05:15 WBC RDW Lymph % (Auto) Lymph # (Auto) Seg Neutrophils % D-Dimer ABG pH ABG pO2 ABG HCO3 ABG O2 Saturation ABG Hemoglobin ABG Carboxyhemoglobin Oxyhemoglobin Carbon Dioxide 36 H D 40 H BUN Creatinine 0.5 L Glucose 200 H 150 H Calcium 7.8 L 8.2 L Magnesium AST NT-Pro-B Natriuret Pep Total Protein Albumin
--- NOTE | 2022-07-08 13:58 | Progress Note ---
Assessment and Plan Assessment and plan: #Acute Hypoxic Respiratory Failure- secondary to COPD vs CHF #history of COPD #Severe pulmonary hypertension -NTproBNP 3261 -CTA of chest: negative for PE but did show bilateral pleural effusions, biapical nodular scarring and mild paraseptal emphysema -Echocardiogram shows LVEF 55-60%, mild diastolic dysfunction, RV volume overload and severe pulmonary hypertension -patient currently on 2L NC, will wean as tolerated -home O2 evaluation ordered -patient advised that she must stop smoking cocaine and cigarettes to improve her condition -Pulmonology and Cardiology following, assistance appreciated #Acute diastolic heart failure -Unclear if new or chronic -Likely secondary to severe pulmonary hypertension -lasix converted to PO -Cardiology following, assistance appreciated #Metabolic alkalosis -Likely secondary to diuresis vs CO2 retention due to lung disease #Tobacco abuse #Cocaine Abuse #Substance abuse counseling -UDS positive for cocaine, patient smokes cigarettes and unable to quantify how much -Patient declined nicotine patch -Smoking cessation and substance abuse counseling, supportive care, behavior change counseling, +15 minutes. #Hypertension -Reported history of hypertension -Patient currently not taking any medications -Patient currently normotensive and we will continue to monitor #Moderate protein calorie malnutrition -albumin 2.9 -nutrition consult #Advanced care planning -Disease education conducted, care plan discussed, diagnoses discussed, prognosis discussed, and patient acknowledges understanding with care plan -Time: +30 min History Interval history: No acute events overnight. Patient currently on 2L NC. We discussed the CT and TTE findings. Patient has poor insight and is only concerned about leaving to celebrate her birthday tomorrow. She has no acute complaints at this time. Hospitalist Physical - Physical exam Narrative exam: GENERAL: Well nourished and appears to be older than documented age. In no acute distress. HEENT: NC in place at 2LPM. Poor dentition. NECK: Supple. CHEST/LUNGS: Expiratory wheezes bilaterally improved. HEART/CARDIOVASCULAR: RRR. No murmur, rubs or gallops appreciated. ABDOMEN: +BS. NT/ND. NEURO: No focal motor deficit. Follows all commands. MUSCULOSKELETAL: No joint effusion EXTREMITIES: No cyanosis, clubbing or edema. PSYCH: Cooperative. - Constitutional Vitals: Temp Pulse Resp BP Pulse Ox 97.8 F 87 18 94/49 95 07/08/22 11:57 07/08/22 12:00 07/08/22 11:57 07/08/22 11:57 07/08/22 11:57 General appearance: Present: no acute distress Results - Labs CBC & Chem 7: 07/07/22 03:37 07/08/22 05:15 Labs: Laboratory Last Values WBC 3.3 K/mm3 (4.5-11.0) L 07/07/22 03:37 RBC 4.07 M/mm3 (3.65-5.03) 07/07/22 03:37 Hgb 11.3 gm/dl (10.1-14.3) 07/07/22 03:37 Hct 37.2 % (30.3-42.9) 07/07/22 03:37 MCV 91 fl (79-97) 07/07/22 03:37 MCH 28 pg (28-32) 07/07/22 03:37 MCHC 30 % (30-34) 07/07/22 03:37 RDW 18.1 % (13.2-15.2) H 07/07/22 03:37 Plt Count 197 K/mm3 (140-440) 07/07/22 03:37 Lymph % (Auto) 7.1 % (13.4-35.0) L 07/07/22 03:37 [place] % (Auto) 5.4 % (0.0-7.3) 07/07/22 03:37 Eos % (Auto) 0.0 % (0.0-4.3) 07/07/22 03:37 Baso % (Auto) 0.0 % (0.0-1.8) 07/07/22 03:37 Lymph # (Auto) 0.2 K/mm3 (1.2-5.4) L 07/07/22 03:37 [place] # (Auto) 0.2 K/mm3 (0.0-0.8) 07/07/22 03:37 Eos # (Auto) 0.0 K/mm3 (0.0-0.4) 07/07/22 03:37 Baso # (Auto) 0.0 K/mm3 (0.0-0.1) 07/07/22 03:37 Seg Neutrophils % 87.5 % (40.0-70.0) H 07/07/22 03:37 Seg Neutrophils # 2.9 K/mm3 (1.8-7.7) 07/07/22 03:37 D-Dimer 462.72 ng/mlDDU (0-234) H 07/06/22 04:07 ABG pH 7.236 pH Units (7.350-7.450) L 07/06/22 04:40 ABG pCO2 63.9 mm Hg 07/06/22 04:40 ABG pO2 91.9 mm Hg (80.0-90.0) H 07/06/22 04:40 ABG HCO3 26.5 mmol/L (20.0-26.0) H 07/06/22 04:40 ABG O2 Saturation 96.4 % (95.0-99.0) 07/06/22 04:40 ABG O2 Content 13.8 (0.0-44) 07/06/22 04:40 ABG Base Excess -1.8 mmol/L (-2.0-3.0) 07/06/22 04:40 ABG Hemoglobin 11.0 gm/dl (12.0-16.0) L 07/06/22 04:40 ABG Carboxyhemoglobin 8.0 % (0.0-5.0) H 07/06/22 04:40 ABG Methemoglobin 0.5 % (0.0-1.5) 07/06/22 04:40 Oxyhemoglobin 88.2 % (95.0-99.0) L 07/06/22 04:40 FiO2 40 % 07/06/22 04:40 Sodium 145 mmol/L (137-145) 07/08/22 05:15 Potassium 4.7 mmol/L (3.6-5.0) 07/08/22 05:15 Chloride 99.0 mmol/L (98-107) 07/08/22 05:15 Carbon Dioxide 40 mmol/L (22-30) H 07/08/22 05:15 Anion Gap 11 mmol/L 07/08/22 05:15 BUN 15 mg/dL (7-17) 07/08/22 05:15 Creatinine 0.5 mg/dL (0.6-1.2) L 07/08/22 05:15 Estimated GFR > 60 ml/min 07/08/22 05:15 BUN/Creatinine Ratio 30 % 07/08/22 05:15 Glucose 150 mg/dL (65-100) H 07/08/22 05:15 Calcium 8.2 mg/dL (8.4-10.2) L 07/08/22 05:15 Magnesium 2.80 mg/dL (1.7-2.3) H 07/06/22 04:07 Total Bilirubin 0.30 mg/dL (0.1-1.2) 07/06/22 04:07 AST 43 units/L (5-40) H 07/06/22 04:07 ALT 29 units/L (7-56) 07/06/22 04:07 Alkaline Phosphatase 77 units/L (35-129) 07/06/22 04:07 NT-Pro-B Natriuret Pep 3261 pg/mL (0-900) H 07/06/22 04:07 Total Protein 5.2 g/dL (6.3-8.2) L 07/06/22 04:07 Albumin 2.9 g/dL (3.9-5) L 07/06/22 04:07 Albumin/Globulin Ratio 1.3 % 07/06/22 04:07 Urine Opiates Screen Negative 07/06/22 Unknown Urine Methadone Screen Negative 07/06/22 Unknown Ur Barbiturates Screen Negative 07/06/22 Unknown Ur Phencyclidine Scrn Negative 07/06/22 Unknown Ur Amphetamines Screen Negative 07/06/22 Unknown U Benzodiazepines Scrn Negative 07/06/22 Unknown Urine Cocaine Screen Positive 07/06/22 Unknown U Marijuana (THC) Screen Negative 07/06/22 Unknown Drugs of Abuse Note Disclamer 07/06/22 Unknown Landa/IV: Voiding Method Toilet Active Medications - Current Medications Current Medications: Generic Name Dose Route Start Last Admin Trade Name Freq PRN Reason Stop Dose Admin Acetaminophen 650 mg 07/06/22 05:15 Acetaminophen 325 Mg Tab PO Q4H PRN Pain MILD(1-3)/Fever >100.5/BAÑUELOS Albuterol 2.5 mg 07/06/22 05:15 Albuterol 2.5 Mg/3 Ml Nebu IH Q3HRT PRN Shortness Of Breath Albuterol/Ipratropium 1 ampul 07/07/22 20:00 07/08/22 13:32 Ipratropium/Albuterol Sulfate 3 Ml Ampul.Neb IH 1 ampul TIDRT JAMES Administration Budesonide 0.5 mg 07/07/22 11:00 07/08/22 08:31 Budesonide 0.5 Mg/2 Ml Nebu IH 0.5 mg Q12HRT JAMES Administration Divalproex Sodium 500 mg 07/07/22 10:00 07/08/22 09:[address] 500 Mg Tab PO 500 mg Q12HR JAMES Administration Furosemide 40 mg 07/06/22 06:00 07/08/22 07:13 Furosemide 40 Mg/4 Ml Inj IV 40 mg BID@0600,1800 JAMES Administration Heparin Sodium (Porcine) 5,000 unit 07/06/22 06:00 07/08/22 13:16 Heparin 5,000 Unit/1 Ml Vial SUB-Q 5,000 unit Q8HR JAMES Administration Magnesium Hydroxide 30 ml 07/06/22 05:15 Magnesium Hydroxide (Mom) Oral Liqd Udc PO Q4H PRN Constipation Methylprednisolone Sodium Succinate 40 mg 07/07/22 13:00 07/08/22 13:16 Methylprednisolone Sod Succinate 40 Mg/1 Ml Inj IV 40 mg Q8H JAMES Administration Montelukast Sodium 10 mg 07/07/22 22:00 07/07/22 21:29 Montelukast 10 Mg Tab PO 10 mg QHS JAMES Administration Ondansetron HCl 4 mg 07/06/22 05:15 07/06/22 21:03 Ondansetron 4 Mg/2 Ml Inj IV 4 mg Q8H PRN Administration Nausea And Vomiting Sodium Chloride 10 ml 07/06/22 10:00 07/08/22 09:35 Sodium Chloride 0.9% 10 Ml Flush Syringe IV 10 ml BID JAMES Administration Sodium Chloride 10 ml 07/06/22 05:15 07/07/22 21:30 Sodium Chloride 0.9% 10 Ml Flush Syringe IV 10 ml PRN PRN Administration LINE FLUSH
[2022-07-08] MEDS: MONTELUKAST 10 MG TAB PO SCH (21:26)
[2022-07-09] MEDS: HEPARIN 5,000 UNIT/1 ML VIAL SUB-Q SCH ×2 (05:35→13:51)
[2022-07-09] MEDS: BUDESONIDE 0.5 MG/2 ML NEBU IH SCH (09:28)
[2022-07-09] MEDS: IPRATROPIUM/ALBUTEROL SULFATE 3 ML AMPUL.NEB IH SCH ×2 (09:28→13:32)
[2022-07-09] MEDS: DIVALPROEX DR 500 MG TAB PO SCH (09:44)
[2022-07-09] MEDS ORDERED: FUROSEMIDE 40 MG TAB PO SCH (10:00)
[2022-07-09] MEDS ORDERED: predniSONE 20 MG TAB PO SCH (10:00)
--- NOTE | 2022-07-09 11:08 | Discharge Summary ---
Providers - Providers Date of Admission: 07/06/22 05:15 Attending physician: WHITNEY BAE MD 07/06/22 05:41 Consult to Cardiology [CONS] Routine Consulting Provider: JAY SEE Reason For Exam: CHF Exac 07/08/22 09:05 Consult to Dietitian/Nutrition [CONS] Routine Physician Instructions: Reason For Exam: Reason for Consult: Malnutrition Primary care physician: ARRON TUBBS Hospitalization Condition: Stable Disposition: 30 STILL A PATIENT Exam - Constitutional Vitals: Temp Pulse Resp BP Pulse Ox 98.2 F 80 20 125/73 98 07/09/22 08:03 07/09/22 10:00 07/09/22 09:29 07/09/22 08:03 07/09/22 10:00 Plan Care Plan Goals: We recommend that you stop smoking both tobacco and cocaine. Your symptoms are caused by severe pulmonary hypertension which will night resolve itself if you continue to smoke. Please establish care with a primary care provider and acoustic engineer for further help. Please take all medications as they are prescribed to you. You do qualify for home oxygen. As you have been told it will be at a cost to you. It is not recommended that you use oxygen if you will continue to smoke. Follow up with: ARRON TUBBS MD [Primary Care Provider] - 7 Days Prescriptions: Montelukast [Singulair] 10 mg PO QHS 30 Days #30 tablet Furosemide [Lasix TAB] 40 mg PO QDAY 30 Days #30 tablet Prednisone [predniSONE 10 mg (6-Day Pack, 21 Tabs)] 10 mg PO .TAPER 6 Days #1 each Albuterol Sulfate [Proventil Hfa] 2 puff IH Q4HR PRN 30 Days #2 hfa.aer.ad PRN Reason: Wheezing Budesonide/Formoterol Fumarate [Symbicort 160-4.5 Mcg Inhaler] 10.2 gm IH Q12H 30 Days #2 each
[2022-07-09 11:46] VITALS: BP 122/78
== END 2022-07-09 15:50 | disposition home or self-care (01) | DRG 291 ==
LOC: ED 03:16 → 4A 05:15
PROVIDERS: ADMIT Internal Medicine Geriatric Medicine; ATTEND Student in an Organized Health Care Education/Training Program
PROC: 4A033R1 Measurement of Arterial Saturation, Peripheral, Percutaneous Approach (ICD-10-PCS; principal; 2022-07-06)
PROC: 5A09357 Assistance with Respiratory Ventilation, Less than 24 Consecutive Hours, Continuous Positive Airway Pressure (ICD-10-PCS; 2022-07-06)
DX: I11.0 Hypertensive heart disease with heart failure (principal); I50.31 Acute diastolic (congestive) heart failure; J96.01 Acute respiratory failure with hypoxia; J44.1 Chronic obstructive pulmonary disease with (acute) exacerbation; E44.0 Moderate protein-calorie malnutrition; E87.3 Alkalosis; F14.10 Cocaine abuse, uncomplicated; F17.200 Nicotine dependence, unspecified, uncomplicated; I27.20 Pulmonary hypertension, unspecified; Z71.51 Drug abuse counseling and surveillance of drug abuser; Z68.22 Body mass index [BMI] 22.0-22.9, adult
CPT/HCPCS: 36415; 71045; 71275; 80048; 80053; 80307; 82803; 83735; 83880; 85025; 85027; 85379; 93005; 93306; 94640; 94644; G0378; C8929; J1644; J1940; J1956; J2270; J2405; J2920; J3105; J3475; Q9967